=== PATIENT | female | born 1965 | race Caucasian/White ===

== ENCOUNTER → 2019-04-20 08:34 | Outpatient (BNVA) | payer MEDICARE, MEDICAID, SELFPAY | PROVIDERS: Family Provider Family Medicine; PCP Family Medicine; Visit Provider Specialist | DX: G35 Multiple sclerosis (principal) | CPT/HCPCS: 99214 ==

== ENCOUNTER → 2019-10-04 10:19 | Outpatient (BNVA) | payer MEDICARE, MEDICAID, SELFPAY | PROVIDERS: Family Provider Family Medicine; PCP Family Medicine; Visit Provider Specialist | DX: G35 Multiple sclerosis (principal) | CPT/HCPCS: 99213 ==

== ENCOUNTER 2020-05-23 10:39 | Outpatient (CLI) | payer MEDICARE, MEDICAID, SELFPAY ==
--- NOTE | 2020-05-23 10:42 | USCV_ITS ---
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 Resting YOCASTA of 0.37 on the right side and 0.7 on the left side CONCLUSIONS Normal resting YOCASTA and TBI on the left side, suggesting no significant obstructive arterial disease. Normal resting YOCASTA and abnormal resting TBI, suggestive of mild/moderate peripheral artery disease involving the distal vessels on the right side Dr Kristen Walker MD [facility] (Electronically Signed) Final Date: 24 May 2020 20:27 S
== END 2020-05-23 10:40 | disposition home or self-care (01) ==
LOC: US 10:41
PROVIDERS: PCP Family Medicine; Visit Provider Family Medicine
DX: M79.604 Pain in right leg (principal); M79.605 Pain in left leg
CPT/HCPCS: 93922

== ENCOUNTER → 2020-10-03 09:05 | Outpatient (BNVA) | payer MEDICARE, MEDICAID, SELFPAY | PROVIDERS: PCP Family Medicine; Visit Provider Specialist | DX: G35 Multiple sclerosis (principal); R20.0 Anesthesia of skin; R20.2 Paresthesia of skin; Z71.89 Other specified counseling | CPT/HCPCS: 99214 ==

== ENCOUNTER → 2021-07-22 14:57 | Outpatient (BNVA) | payer MEDICARE, MEDICAID, SELFPAY | PROVIDERS: PCP Family Medicine; Visit Provider Specialist | DX: G35 Multiple sclerosis (principal); F32.A Depression, unspecified | CPT/HCPCS: 99213 ==

== ENCOUNTER 2022-03-04 16:22 | Emergency (ER) | payer MEDICARE, MEDICAID, SELFPAY ==
[2022-03-04 16:31] VITALS: BP 143/88; PULSE 99; RESP 16; TEMP 36.8; O2SAT 97; BMI 27.4
[2022-03-04 16:39] VITALS: BP 153/73; PULSE 96; O2SAT 100
--- NOTE | 2022-03-04 16:57 | XRR_ITS ---
PROCEDURE INFORMATION: Exam: XR Chest Exam date and time: 03/04/2022 5:19 PM Age: 56 years old Clinical indication: Cough; Additional info: Dyspnea/cough TECHNIQUE: Imaging protocol: Radiologic exam of the chest. Views: 1 view. COMPARISON: No relevant prior studies available. FINDINGS: Lungs: Unremarkable. No consolidation. Pleural spaces: Unremarkable. No pleural effusion. No pneumothorax. Heart/Mediastinum: Unremarkable. No cardiomegaly. Bones/joints: Unremarkable. XR/XR chest 1V portable [id number] IMPRESSION: No acute findings.
--- NOTE | 2022-03-04 16:57 | ECG_ITS ---
[facility] Test Date: 2022-03-04 Pat Name: Elizabeth Garcia Department: Room: Gender: Female Envelope Addresser: : 1965 Requested By: Cam Bunn Order Number: [id number] Eloy MD: Kristen Walker M.D. Measurements Intervals [place] Rate: 94 P: 60 NM: 135 QRS: 12 QRSD: 77 T: 51 QT: 351 QTc: 440 Interpretive Statements SINUS RHYTHM Nonspecific T wave changes No previous ECG available for comparison Electronically Signed On 03-04-2022 20:30:44 IRRIGATION PUMP INSTALLER by Kristen Walker M.D. [id number]
--- NOTE | 2022-03-04 16:57 | CTR_ITS ---
PROCEDURE INFORMATION: Exam: CT Head Without Contrast Exam date and time: 03/04/2022 5:35 PM Age: 56 years old Clinical indication: Other: Confusion; Patient HX: Multiple sclerosis; Additional info: AMS TECHNIQUE: Imaging protocol: Computed tomography of the head without contrast. Radiation optimization: All CT scans at this facility use at least one of these dose optimization techniques: automated exposure control; mA and/or kV adjustment per patient size (includes targeted exams where dose is matched to clinical indication); or iterative reconstruction. COMPARISON: No relevant prior studies available. RADIATION DOSE METRICS: Total DLP (mGy-cm): 963.78 FINDINGS: Brain: Cerebral volume loss. No hemorrhage. Unremarkable white matter. No mass effect. Cerebral ventricles: Moderate ventriculomegaly. Paranasal sinuses: Visualized sinuses are unremarkable. No fluid levels. Mastoid air cells: Visualized mastoid air cells are well aerated. Bones/joints: Unremarkable. No acute fracture. There is a calcific density of posterior to the frontal sinuses in the midline sagittal measurements of 13 mm x 14 mm axial transverse measurement of 12 mm this finding appears chronic Soft tissues: Unremarkable. Other findings: This finding is larger than expected for age. CT/CT head wo con* [id number] IMPRESSION: 1. No acute intracranial abnormality. 2. Ventriculomegaly. 3. Chronic calcified density posterior to the frontal sinus.
--- NOTE | 2022-03-04 17:03 | W.ED.AMS ---
HPI - Altered Mental Status General: Chief Complaint: Altered Mental Status Stated Complaint: AMS Time Seen by Provider: 03/04/22 16:23 Course Vital Signs: Vital signs: Vital Signs Temperature 98.2 F 03/04/22 16:31 Pulse Rate 99 03/04/22 16:31 Respiratory Rate 16 03/04/22 16:31 Blood Pressure 143/88 03/04/22 16:31 Pulse Oximetry 97 03/04/22 16:31 Oxygen Delivery Me thod 03/04/22 16:31 Discharge Plan Discharge Condition: Stable Prescriptions: No Action duloxetine 30 mg capsule,delayed release(DR/EC) 30 mg PO DAILY duloxetine 60 mg capsule,delayed release(DR/EC) 60 mg PO DAILY Linzess 145 mcg capsule 145 mcg PO DAILY dimethyl fumarate 240 mg capsule,delayed release(DR/EC) 240 mg PO BID Referrals: Dariel Gaviria MD [Primary Care Provider] - Coding Level of Care Code ED Banking Supervisor for Jesus De Luna
[2022-03-04 17:09] VITALS: BP 151/70; PULSE 99; O2SAT 99
[2022-03-04 17:16] LABS: Basophils % 0.5 %; Eosinophils # 0.1 10^3/uL (0.0-0.8); Eosinophils % 0.6 %; Hemoglobin 12.9 g/dL (11.5-15.3); Lymphocytes # 1.2 10^3/uL (0.8-4.8); Lymphocytes % 15.5 %; Mean Corpuscular HGB Conc 32.3 g/dL (30.0-36.0); Mean Corpuscular Hemoglobin 29.8 pg (28.0-34.0); Mean Corpuscular Volume 92.4 fl (81-99); Mean Platelet Volume 11.2 fL (7.4-10.4); Monocytes # 0.6 10^3/uL (0.2-0.9); Monocytes % 7.3 %; Neutrophils # 6.08 10^3/uL (1.8-7.7); Nucleated Red Blood Cells % 0 %; Platelet Count 285 10^3/cmm (130-400); Red Blood Count 4.33 10^6/uL (4.1-5.3); Red Cell Distribution Width 12.9 % (12.1-15.1)
--- NOTE | 2022-03-04 17:27 | ED_ITS ---
HPI - General Adult General: Chief complaint: Altered Mental Status Stated complaint: AMS Time Seen by Provider: 03/04/22 16:23 Source: patient Mode of arrival: EMS History of Present Illness: 58-year-old female presents to the emergency room with a complaint of altered mental status. She is awake and alert answers all questions appropriately she says she thought Dr. Matson had moved from an office bili could the other which had confused her. I pointed out to her that as it turns out Dr. Matson did move from one location to another within the last 6 months. When she is pressed on the questions she has a hard time e xplaining what was going on or why she is here today. She is aware that she had a home health care nurse who sets up her medications it came out that thought she was confused. She denies any abdominal pain chest pain dysuria urgency or frequency no recent head trauma. EMS thought that this potentially that she was not taking her medicines correctly. She sees Dr. Matson for multiple sclerosis. Onset (ago): unknown Severity: mild Relieving factors: none Exacerbating factors: none Associated symptoms: Deny chest pain, confusion, cough, diaphoresis, decreased appetite, dyspnea, fevers/chills, headache(s), malaise, nausea, rash, palpitations, seizures, short of breath, syncope, vomiting or weakness Review of Systems Const: Denies: fever(s), chills, malaise or diaphoresis ENMT: Denies: throat pain, ear or mastoid pain, nasal discharge or nasal congestion Card: Denies: chest pain, palpitations or syncope Resp: Denies: dyspnea GI: Denies: abdominal pain, nausea or vomiting : Denies: flank pain, difficulty voiding, dysuria, urinary frequency or urinary urgency Skin/Breast: Denies: rash Neuro: Denies: headache(s) or confusion PFS ED PFSH: Medical History (Updated 03/04/22 @ 18:31 by Cam Swanson DO) Multiple sclerosis Social History (Updated 03/04/22 @ 17:31 by Cam Swanson DO) Smoking and tobacco status: never smoked Alcohol intake: never Physical Exam Const: GENERAL APPEARANCE: cooperative and comfortable ORIENTATION/CONSCIOUSNESS: Yes awake HENMT: COMMON NORMALS: normocephalic and atraumatic HEAD & SCALP: normocephalic and atraumatic Resp: COMMON NORMALS: normal respiratory effort, No retractions, No use of accessory muscles and clear to auscultation bilaterally AUSCULTATION: clear to auscultation bilaterally Cardio: COMMON NORMALS: regular rate, regular rhythm and No murmurs present (Cardio) RATE: regular rate RHYTHM: regular rhythm GI: COMMON NORMALS: Soft to palpation and No hepatosplenomegaly present AUSCULTATION: Yes normoactive bowel sounds PALPATION: Yes Soft to palpation, No Tenderness to palpation present (GI), No Guarding due to palpation present (GI) and Yes No hepatosplenomegaly present Extremity: COMMON NORMALS: normal to inspection, capillary refill normal, no clubbing, cyanosis or edema, no calf tenderness and no pedal edema Skin: COMMON NORMALS: no rashes or lesions noted GENERAL SKIN EXAM: no rashes or lesions noted Course Vital Signs: Vital signs: Vital Signs Temperature 98.2 F 03/04/22 16:31 Pulse Rate 98 03/04/22 18:21 Respiratory Rate 16 03/04/22 16:31 Blood Pressure 154/78 03/04/22 18:21 Pulse Oximetry 100 03/04/22 18:21 Oxygen Delivery Me thod 03/04/22 18:21 MDM - General Adult Medical Decision Making She does have multiple sclerosis unfortunately there were 2 charts and initially we did not have access to her old records. She has some difficulty with cognitive ability at her end-stage MS which is not new for her. Reviewed the other chart and the findings and. At this point I think she is essentially at her baseline no acute findings made we will discharge her home. Lab Data 03/04/22 17:02 03/04/22 17:02 Radiology Impressions Chest X-Ray 03/04/22 16:57 IMPRESSION: No acute findings. Head CT 03/04/22 16:57 IMPRESSION: 1. No acute intracranial abnormality. 2. Ventriculomegaly. 3. Chronic calcified density posterior to the frontal sinus. Laboratory Results WBC 8.0 10^3/uL (4.0-10.0) 03/04/22 17:02 RBC 4.33 10^6/uL (4.1-5.3) 03/04/22 17:02 Hgb 12.9 g/dL (11.5-15.3) 03/04/22 17:02 Hct 40.0 % (37.0-47.0) 03/04/22 17:02 MCV 92.4 fl (81-99) 03/04/22 17:02 MCH 29.8 pg (28.0-34.0) 03/04/22 17:02 MCHC 32.3 g/dL (30.0-36.0) 03/04/22 17:02 RDW 12.9 % (12.1-15.1) 03/04/22 17:02 Plt Count 285 10^3/cmm (130-400) 03/04/22 17:02 MPV 11.2 fL (7.4-10.4) H 03/04/22 17:02 Neut % (Auto) 76.0 % 03/04/22 17:02 Lymph % (Auto) 15.5 % 03/04/22 17:02 [place] % (Auto) 7.3 % 03/04/22 17:02 Eos % (Auto) 0.6 % 03/04/22 17:02 Baso % (Auto) 0.5 % 03/04/22 17:02 Neut # (Auto) 6.08 10^3/uL (1.8-7.7) 03/04/22 17:02 Lymph # (Auto) 1.2 10^3/uL (0.8-4.8) 03/04/22 17:02 [place] # (Auto) 0.6 10^3/uL (0.2-0.9) 03/04/22 17:02 Eos # (Auto) 0.1 10^3/uL (0.0-0.8) 03/04/22 17:02 Baso # (Auto) 0.0 10^3/uL (0.0-0.1) 03/04/22 17:02 Nucleated RBC % (auto) 0 % 03/04/22 17:02 Nucleated RBCs # 0.0 /100WBC 03/04/22 17:02 Sodium 138 mmol/L (136-145) 03/04/22 17:02 Potassium 3.4 mmol/L (3.5-5.1) L 03/04/22 17:02 Chloride 102 mmol/L (98-107) 03/04/22 17:02 Carbon Dioxide 23 mmol/L (22-29) 03/04/22 17:02 Anion Gap 16.4 (5-19) 03/04/22 17:02 BUN 26 mg/dL (6-20) H 03/04/22 17:02 Creatinine 0.9 mg/dL (0.5-0.9) 03/04/22 17:02 GFR Calculation 64.8 mL/min (90-130) L 03/04/22 17:02 Glucose 98 mg/dL (65-115) 03/04/22 17:02 Calculated Osmolality 291 mOsm/kg (285-295) 03/04/22 17:02 Calcium 10.1 mg/dL (8.5-10.5) 03/04/22 17:02 Total Bilirubin 0.4 mg/dL (0.15-1.2) 03/04/22 17:02 AST 18 U/L (0-32) 03/04/22 17:02 ALT 13 U/L (0-33) 03/04/22 17:02 Alkaline Phosphatase 81 U/L (35-105) 03/04/22 17:02 Total Protein 7.3 g/dL (6.6-8.7) 03/04/22 17:02 Albumin 4.2 g/dL (3.5-5.2) 03/04/22 17:02 Globulin 3.1 g/dL (1.3-4.6) 03/04/22 17:02 Discharge Plan Discharge Patient Disposition: Home Clinical Impression: Multiple sclerosis Condition: Stable Prescriptions: No Action duloxetine 30 mg capsule,delayed release(DR/EC) 30 mg PO DAILY duloxetine 60 mg capsule,delayed release(DR/EC) 60 mg PO DAILY Linzess 145 mcg capsule 145 mcg PO DAILY dimethyl fumarate 240 mg capsule,delayed release(DR/EC) 240 mg PO BID Discharge Orders: Discharge ED (Routine); Ordered 03/04/22 Ordered By: Cam Swanson Referrals: Dariel Gaviria MD [Primary Care Provider] - Discharge Diet: Usual diet Discharge Activity: Resume usual activity Patient Instructions: Opioid Safety, Pain Management Activity Restrictions/Additional Instructions: You were seen today for reported altered mental status. Emergency room your exam laboratory findings were normal accounting for your underlying known multiple sclerosis. Follow-up with Dr. Matson at your next scheduled visit. Coding Level of Care Code ED Appliance Painter And Refinisher for Chg Fwd Exam Detailed
[2022-03-04 17:30] VITALS: BP 166/75; PULSE 89; O2SAT 98
[2022-03-04 17:40] LABS: Alanine Aminotransferase 13 U/L (0-33); Albumin Level 4.2 g/dL (3.5-5.2); Alkaline Phosphatase 81 U/L (35-105); Aspartate Amino Transferase 18 U/L (0-32); Blood Urea Nitrogen 26 mg/dL (6-20); Calcium 10.1 mg/dL (8.5-10.5); Carbon Dioxide 23 mmol/L (22-29); Chloride 102 mmol/L (98-107); Globulin 3.1 g/dL (1.3-4.6); Glomerular Filtration Rate 64.8 mL/min (90-130); Glucose 98 mg/dL (65-115); Osmolality Calculated 291 mOsm/kg (285-295); Sodium 138 mmol/L (136-145); Total Bilirubin 0.4 mg/dL (0.15-1.2); Total Protein 7.3 g/dL (6.6-8.7)
[2022-03-04 17:42] LABS: Anion Gap 16.4 (5-19); Potassium 3.4 mmol/L (3.5-5.1)
[2022-03-04 18:21] VITALS: BP 154/78; PULSE 98; O2SAT 100
== END 2022-03-04 19:00 | disposition home or self-care (01) ==
PROVIDERS: Emergency Provider Family Medicine; PCP Family Medicine
DX: G35 Multiple sclerosis (principal)
CPT/HCPCS: 70450; 71045; 80053; 85025; 93005; 99285

== ENCOUNTER → 2022-07-22 14:44 | Outpatient (BNVA) | payer MEDICARE, MEDICAID, SELFPAY | PROVIDERS: PCP Family Medicine; Visit Provider Specialist | DX: G35 Multiple sclerosis (principal); Z79.899 Other long term (current) drug therapy | CPT/HCPCS: 99213 ==

== ENCOUNTER 2022-08-12 12:31 | Emergency (ER) | payer MEDICARE, MEDICAID, SELFPAY ==
[2022-08-12 12:37] VITALS: BP 154/77; PULSE 70; RESP 18; TEMP 36.7; O2SAT 97; BMI 23.3
--- NOTE | 2022-08-12 13:02 | CT_ITS ---
WS: [id number] CT HEAD NONCONTRAST HISTORY: AMS TECHNIQUE: Contiguous axial imaging performed through the brain in 2.5 mm imaging. Bone and soft tiss ue windows. Sagittal and coronal reformats reviewed. All CT scans at [facility] use at least one of these dose optimization techniques: automated exposure control; mA and/or kV adjustment per pa tient size (includes targeted exams where dose is matched to clinical indication); or iterative recon struction. DLP: 977.08 mGy.cm COMPARISON: 03/04/2022 No acute intracranial hemorrhage, midline shift or mass effect. Moderate atrophy is noted bilaterally. Advanced for the patient's age. Predominantly involving the fr ontal, temporal and parietal lobes. Low-attenuation throughout the white matter from small vessel isc hemic disease. Small lacunar infarcts in the basal ganglia greatest on the RIGHT. Moderate cerebellar atrophy. Ventricles: Normal size with no hydrocephalus. Paranasal sinuses: Mucoperiosteal disease sphenoid sinuses. Calcified mass in the anterior inferior f rontal brain. This is been present on prior studies and probably represents a meningioma. No soft tis kay component. Mastoid air cells: Well pneumatized. Calvarium and scalp: Skull is intact with no soft tissue edema or swelling. CT/CT head wo con* [id number] IMPRESSION: 1. Moderate atrophy is noted bilaterally involving the frontal, temporal and p arietal lobes. Out of proportion to the age and probably related to multiple sc lerosis. There is also moderate small vessel ischemic disease. These changes we re present on the prior study from 03/04/2022. No acute interval change. 2. No hemorrhage.
--- NOTE | 2022-08-12 13:02 | XRR_ITS ---
PROCEDURE INFORMATION: Exam: XR Chest Exam date and time: 08/12/2022 1:28 PM Age: 57 years old Clinical indication: Cough and dyspnea; Altered mental status. TECHNIQUE: Imaging protocol: Radiologic exam of the chest. Views: 1 view. COMPARISON: CR XR chest 1V portable [id number] 03/04/2022 5:19 PM FINDINGS: Lungs: No pulmonary vascular congestion, pulmonary edema or pneumonia. Pleural spaces: No pleural effusion or pneumothorax. Heart/Mediastinum: The cardiac silhouette is not enlarged. The mediastinal contours are normal. Bones/joints: No acute osseous abnormality. Gastrointestinal tract: Gaseous distention of the visualized colon in the upper abdomen. XR/XR chest 1V portable [id number] IMPRESSION: No acute finding.
[2022-08-12 13:10] LABS: Basophils # 0.1 10^3/uL (0.0-0.1); Basophils % 0.9 %; Eosinophils # 0.2 10^3/uL (0.0-0.8); Eosinophils % 3.3 %; Hematocrit 46.2 % (37.0-47.0); Hemoglobin 14.6 g/dL (11.5-15.3); Lymphocytes # 1.5 10^3/uL (0.8-4.8); Lymphocytes % 25.2 %; Mean Corpuscular HGB Conc 31.6 g/dL (30.0-36.0); Mean Corpuscular Hemoglobin 28.9 pg (28.0-34.0); Mean Corpuscular Volume 91.5 fl (81-99); Monocytes # 0.4 10^3/uL (0.2-0.9); Monocytes % 7.5 %; Neutrophils # 3.62 10^3/uL (1.8-7.7); Neutrophils % 62.9 %; Nucleated Red Blood Cells % 0 %; Platelet Count 374 10^3/cmm (130-400); Red Blood Count 5.05 10^6/uL (4.1-5.3); Red Cell Distribution Width 13.8 % (12.1-15.1); White Blood Count 5.8 10^3/uL (4.0-10.0)
--- NOTE | 2022-08-12 13:23 | ED_ITS ---
HPI - General Adult General: Chief complaint: Altered Mental Status Stated complaint: AMS Time Seen by Provider: 08/12/22 12:59 Source: patient Mode of arrival: EMS History of Present Illness: 57-year-old female presents emergency room with altered mental status. Does not really able to answer any questions. She laughs when asked her most questions she is not in any acute distress nonseptic in appearance. She has a history of MS still is able to tell me that Dr. Gaviria is her usual doctor and she has MS but cannot really tell us anything about why she is here. Onset (ago): day(s) (2) Relieving factors: none Exacerbating factors: none Associated symptoms: Deny chest pain, confusion, cough, diaphoresis, decreased appetite, dyspnea, fevers/chills, headache(s), malaise, nausea, rash, palpitations, seizures, short of breath, syncope, vomiting or weakness Treatments prior to arrival: none Review of Systems Const: Denies: malaise or diaphoresis ENMT: Denies: throat pain, ear or mastoid pain, nasal discharge or nasal congestion Card: Denies: chest pain, palpitations or syncope Resp: Denies: dyspnea GI: Denies: abdominal pain, nausea or vomiting : Denies: flank pain, difficulty voiding, dysuria, urinary frequency or urinary urgency Skin/Breast: Denies: rash Neuro: Denies: headache(s) or confusion PFSH ED PFSH: Medical History Multiple sclerosis Social History Smoking and tobacco status: never smoked Alcohol intake: never Physical Exam Const: GENERAL APPEARANCE: cooperative and comfortable ORIENTATION/CONSCIOUSNESS: Yes awake, Yes oriented to person, Yes oriented to place and Yes oriented to time HENMT: COMMON NORMALS: normocephalic, atraumatic and hearing grossly normal bilaterally HEAD & SCALP: normocephalic and atraumatic Resp: COMMON NORMALS: normal respiratory effort, No retractions, No use of accessory muscles and clear to auscultation bilaterally AUSCULTATION: clear to auscultation bilaterally Cardio: COMMON NORMALS: regular rate, regular rhythm and No murmurs present (Cardio) RATE: regular rate RHYTHM: regular rhythm GI: COMMON NORMALS: Soft to palpation and No hepatosplenomegaly present AUSCULTATION: Yes normoactive bowel sounds PALPATION: Yes Soft to palpation, No Tenderness to palpation present (GI), No Guarding due to palpation present (GI) and Yes No hepatosplenomegaly present Extremity: COMMON NORMALS: normal to inspection, capillary refill normal, no clubbing, cyanosis or edema, no calf tenderness and no pedal edema Neuro: SENSORIUM/ORIENTATION: Yes oriented to person, Yes oriented to place and Yes oriented to time Skin: COMMON NORMALS: no rashes or lesions noted GENERAL SKIN EXAM: no rashes or lesions noted Course Vital Signs: Vital signs: Vital Signs Temperature 98.0 F 08/12/22 16:20 Pulse Rate 83 08/12/22 17:56 Respiratory Rate 16 08/12/22 17:56 Blood Pressure 142/76 08/12/22 17:56 Pulse Oximetry 97 08/12/22 17:56 Oxygen Delivery Me thod Room Air 08/12/22 12:37 MDM - General Adult Medical Decision Making Patient has a rather interesting affect when she arrives here we cannot find anyone to discuss to get her baseline. I did call Dr. Gaviria he had seen her about 2 years he did relate that she does have a habit of giggling or laughing a bit when interacting but usually can give a good history. She is able to give a relatively good history but was very repetitive and avoided detailed. She is awake and alert she wants to go home. White count is normal electrolytes were not significantly abnormal either. She did have very slight elevation of her alk phos and a mild urinary tract infection we tried to contact her significant other we also contacted home health. The home health aide who stopped by felt she was not quite herself which is what precipitated the ER visit. I do not have anything to admit her for at this time we will discharge patient home with Cipro for UTI and encouraged her to follow-up with primary care doctor/ reestablish with Dr. Gaviria within the next week return if she has further problems. Medical Records I reviewed the patient's medical records. Lab Data I reviewed the patient's lab results. 08/12/22 12:40 08/12/22 12:40 Radiology Impressions Chest X-Ray 08/12/22 13:02 IMPRESSION: No acute finding. Head CT 08/12/22 13:02 IMPRESSION: 1. Moderate atrophy is noted bilaterally involving the frontal, temporal and parietal lobes. Out of proportion to the age and probably related to multiple sclerosis. There is also moderate small vessel ischemic disease. These changes were present on the prior study from 03/04/2022. No acute interval change. 2. No hemorrhage. Laboratory Results WBC 5.8 10^3/uL (4.0-10.0) 08/12/22 12:40 RBC 5.05 10^6/uL (4.1-5.3) 08/12/22 12:40 Hgb 14.6 g/dL (11.5-15.3) 08/12/22 12:40 Hct 46.2 % (37.0-47.0) 08/12/22 12:40 MCV 91.5 fl (81-99) 08/12/22 12:40 MCH 28.9 pg (28.0-34.0) 08/12/22 12:40 MCHC 31.6 g/dL (30.0-36.0) 08/12/22 12:40 RDW 13.8 % (12.1-15.1) 08/12/22 12:40 Plt Count 374 10^3/cmm (130-400) 08/12/22 12:40 MPV 11.0 fL (7.4-10.4) H 08/12/22 12:40 Neut % (Auto) 62.9 % 08/12/22 12:40 Lymph % (Auto) 25.2 % 08/12/22 12:40 [place] % (Auto) 7.5 % 08/12/22 12:40 Eos % (Auto) 3.3 % 08/12/22 12:40 Baso % (Auto) 0.9 % 08/12/22 12:40 Neut # (Auto) 3.62 10^3/uL (1.8-7.7) 08/12/22 12:40 Lymph # (Auto) 1.5 10^3/uL (0.8-4.8) 08/12/22 12:40 [place] # (Auto) 0.4 10^3/uL (0.2-0.9) 08/12/22 12:40 Eos # (Auto) 0.2 10^3/uL (0.0-0.8) 08/12/22 12:40 Baso # (Auto) 0.1 10^3/uL (0.0-0.1) 08/12/22 12:40 Nucleated RBC % (auto) 0 % 08/12/22 12:40 Nucleated RBCs # 0.0 /100WBC 08/12/22 12:40 Sodium 144 mmol/L (136-145) 08/12/22 12:40 Potassium 4.8 mmol/L (3.5-5.1) 08/12/22 12:40 Chloride 106 mmol/L (98-107) 08/12/22 12:40 Carbon Dioxide 28 mmol/L (22-29) 08/12/22 12:40 Anion Gap 14.8 (5-19) 08/12/22 12:40 BUN 18 mg/dL (6-20) 08/12/22 12:40 Creatinine 0.6 mg/dL (0.5-0.9) 08/12/22 12:40 GFR Calculation 103.0 mL/min (90-130) 08/12/22 12:40 Glucose 96 mg/dL (65-115) 08/12/22 12:40 Calculated Osmolality 300 mOsm/kg (285-295) H 08/12/22 12:40 Calcium 9.5 mg/dL (8.5-10.5) 08/12/22 12:40 Total Bilirubin 0.5 mg/dL (0.15-1.2) 08/12/22 12:40 AST 13 U/L (0-32) 08/12/22 12:40 ALT 8 U/L (0-33) 08/12/22 12:40 Alkaline Phosphatase 118 U/L (35-105) H 08/12/22 12:40 Troponin T Baseline 6 ng/L (0-10) 08/12/22 12:40 Troponin T 120 Minute 6.00 ng/L (0-10) 08/12/22 14:43 Delta Troponin T 0 ABS# (0-10) 08/12/22 14:43 Total Protein 7.1 g/dL (6.6-8.7) 08/12/22 12:40 Albumin 4.6 g/dL (3.5-5.2) 08/12/22 12:40 Globulin 2.5 g/dL (1.3-4.6) 08/12/22 12:40 Urine Color Yellow (Yellow) 08/12/22 14:05 Urine Appearance Cloudy (CLEAR) A 08/12/22 14:05 Urine pH 7 (5-7) 08/12/22 14:05 Ur Specific [place] 1.015 (1.005-1.030) 08/12/22 14:05 Urine Protein Neg (Negative) 08/12/22 14:05 Urine Glucose (UA) Norm (Normal) 08/12/22 14:05 Urine Ketones 1+ (Negative) H 08/12/22 14:05 Urine Blood 3+ (Negative) H 08/12/22 14:05 Urine Nitrate Negative (Negative) 08/12/22 14:05 Urine Bilirubin Neg (Negative) 08/12/22 14:05 Urine Urobilinogen 1 mg/dL (Negative) H 08/12/22 14:05 Ur Leukocyte Esterase 2+ (Negative) H 08/12/22 14:05 Urine RBC 5-10 /hpf (0-2) H 08/12/22 14:05 Urine WBC 55-80 /hpf (0-5) H 08/12/22 14:05 Ur Squamous Epith Cells 25-40 /hpf (0-5) H 08/12/22 14:05 Amorphous Sediment Not Reportable 08/12/22 14:05 Urine Bacteria 2+ /hpf (NONE) H 08/12/22 14:05 Urine Mucus Trace /hpf 08/12/22 14:05 Discharge Plan Discharge Patient Disposition: Home Clinical Impression: Cystitis, Multiple sclerosis Condition: Stable Prescriptions: New Cipro 500 mg tablet 500 mg PO BID Qty: 14 0RF No Action duloxetine 30 mg capsule,delayed release(DR/EC) 30 mg PO DAILY Linzess 145 mcg capsule 145 mcg PO DAILY dimethyl fumarate 240 mg capsule,delayed release(DR/EC) 240 mg PO BID baclofen 10 mg tablet 10 mg PO QID PRN (Reason: Muscle Spasm) duloxetine 60 mg capsule,delayed release(DR/EC) 60 mg PO QAM Discharge Orders: Discharge ED (Routine); Ordered 08/12/22 Ordered By: Cam Swanson Referrals: Dariel Gaviria MD [Primary Care Provider] - Patient Instructions: Opioid Safety, Pain Management Coding Level of Care Code ED Filter Plant Supervisor for Chg Fwd
--- NOTE | 2022-08-12 13:25 | ECG_ITS ---
[facility] Test Date: 2022-08-12 Pat Name: Elizabeth Garcia Department: Room: Gender: Female Production Cook: : 1965 Requested By: Cam Bunn Order Number: [id number] Reading MD: Crispin Mccormick M.D. Measurements Intervals [place] Rate: 67 P: 68 [place]: 123 QRS: 17 QRSD: 73 T: 44 QT: 398 QTc: 421 Interpretive Statements SINUS RHYTHM Compared to ECG 03/04/2022 18:40:41 T-wave abnormality no longer present Electronically Signed On 08-12-2022 16:35:52 CDT by Crispin Mccormick M.D. [id number]
[2022-08-12 13:27] LABS: Troponin(5th) Baseline 6 ng/L (0-10)
[2022-08-12 13:28] LABS: Alanine Aminotransferase 8 U/L (0-33); Albumin Level 4.6 g/dL (3.5-5.2); Alkaline Phosphatase 118 U/L (35-105); Anion Gap 14.8 (5-19); Aspartate Amino Transferase 13 U/L (0-32); Blood Urea Nitrogen 18 mg/dL (6-20); Calcium 9.5 mg/dL (8.5-10.5); Carbon Dioxide 28 mmol/L (22-29); Chloride 106 mmol/L (98-107); Globulin 2.5 g/dL (1.3-4.6); Glucose 96 mg/dL (65-115); Osmolality Calculated 300 mOsm/kg (285-295); Potassium 4.8 mmol/L (3.5-5.1); Sodium 144 mmol/L (136-145); Total Bilirubin 0.5 mg/dL (0.15-1.2); Total Protein 7.1 g/dL (6.6-8.7)
[2022-08-12 14:42] VITALS: BP 139/85; PULSE 73; O2SAT 100
[2022-08-12 15:00] VITALS: BP 131/74; PULSE 75; O2SAT 99
--- NOTE | 2022-08-12 15:02 | ECG_ITS ---
[facility] Test Date: 2022-08-12 Pat Name: Elizabeth Garcia Department: Room: Gender: Female Turbine Mechanic: : 1965 Requested By: Cam Bunn Order Number: [id number] Eloy MD: Crispin Mccormick M.D. Measurements Intervals [place] Rate: 69 P: 67 [place]: 122 QRS: 14 QRSD: 76 T: 50 QT: 405 QTc: 435 Interpretive Statements SINUS RHYTHM Compared to ECG 08/12/2022 13:25:55 No significant changes Electronically Signed On 08-12-2022 16:45:14 CDT by Crispin Mccormick M.D. [id number]
[2022-08-12 15:06] LABS: Urine Appearance Cloudy (CLEAR); Urine Color Yellow (Yellow); pH Urine 7 (5-7)
[2022-08-12 15:07] LABS: Add Urine Microscopic? YES; Bilirubin Urine Neg (Negative); Blood Urine 3+ (Negative); Glucose Urine UA Norm (Normal); Ketones Urine 1+ (Negative); Leukocyte Esterase Urine 2+ (Negative); Nitrate Urine Negative (Negative); Protein Urine Neg (Negative); Specific Gravity, Urine 1.015 (1.005-1.030); Urobilinogen Urine 1 mg/dL (Negative); WBC Urine 55-80 /hpf (0-5)
[2022-08-12 15:08] LABS: Add Urine Culture? No; Bacteria Urine 2+ /hpf; Mucus Urine TRACE /hpf; Squamous Epithelial Cell Urine 25-40 /hpf (0-5)
[2022-08-12 15:25] LABS: Troponin 5 2HR Delta 0 ABS# (0-10)
[2022-08-12 15:30] VITALS: BP 143/71; PULSE 70; O2SAT 97
--- NOTE | 2022-08-12 15:41 | PC.PHAR ---
pt unable to verify medications-called pts contact shar [phone] not accepting calls-medications entered are what [facility] pharmacy has mailed to the pt-notes are made with last filled dates in pharmacy comments
[2022-08-12] MEDS: cefTRIAXone 1,000 MG in sodium chloride 0.9% (plus) 50 ML 100 MG IV (16:19)
[2022-08-12 16:20] VITALS: TEMP 36.7
[2022-08-12 17:56] VITALS: BP 142/76; PULSE 83; RESP 16; O2SAT 97
--- NOTE | 2022-08-12 19:05 | PC.NURSE ---
REPORT GIVEN TO [facility].
== END 2022-08-12 20:35 | disposition home or self-care (01) ==
PROVIDERS: Emergency Provider Family Medicine; PCP Family Medicine
DX: N30.90 Cystitis, unspecified without hematuria (principal); G35 Multiple sclerosis
CPT/HCPCS: 36415; 70450; 71045; 80053; 81001; 84484; 85025; 93005; 96365; 99285; J0696

== ENCOUNTER 2023-02-09 02:32 | Emergency (ER) | payer MEDICARE, MEDICAID, SELFPAY ==
[2023-02-09 02:33] VITALS: BP 183/98; PULSE 89; RESP 16; TEMP 36.4; O2SAT 93
--- NOTE | 2023-02-09 04:29 | ED_ITS ---
HPI - Overdose General: Chief Complaint: Overdose Stated Complaint: OD Time Seen by Provider: 02/09/23 02:45 History of Present Illness: 57-year-old female with a history of MS. She states she has been under a lot of stress, due to a significant other in the hospital mainly. She took a total of 200 mg of Benadryl over the last 6 to 7 hours trying to get to sleep because she could not sleep. This is the only thing she had to try to get her to sleep. She denies suicidal or homicidal ideation. She is not having any symptoms of Benadryl overdose. No other coingestions. Review of Systems Const: Denies: fever(s), chills or body aches Eyes: Denies: change in vision Card: Denies: chest pain or palpitations Resp: Denies: dyspnea, productive cough, non-productive cough or wheezing GI: Denies: abdominal pain, nausea, vomiting, diarrhea or hematochezia : Denies: difficulty voiding Skin/Breast: Denies: rash Neuro: Denies: headache(s), weakness in extremities, dizziness or confusion PFSH ED PFSH: Family History Brother Cancer Father CHF (congestive heart failure) Social History Smoking and tobacco/nicotine status: never used tobacco/nicotine Physical Exam Const: COMMON NORMALS: no acute distress GENERAL APPEARANCE: cooperative; not ill appearing and not frail appearing HENMT: COMMON NORMALS: normocephalic, atraumatic and Normal external nose present HEAD & SCALP: normocephalic and atraumatic FACE & SINUS: normal facial exam and face symmetric NOSE: Normal external nose present Eye: COMMON NORMALS: Equal, round and reactive pupils present and EOMs intact bilaterally PUPIL: Yes Equal, round and reactive pupils present Neck/C-Spine: GENERAL: Yes trachea midline Chest: CHEST: Yes Symmetrical chest wall rise Resp: COMMON NORMALS: normal respiratory effort, No retractions, No use of accessory muscles and clear to auscultation bilaterally AUSCULTATION: clear to auscultation bilaterally Cardio: COMMON NORMALS: regular rate and regular rhythm RATE: regular rate RHYTHM: regular rhythm GI: COMMON NORMALS: Normal to inspection, nondistended, normoactive bowel sounds present Extremity: COMMON NORMALS: no pedal edema Neuro: LAINA COMA SCALE: document GCS findings Stanton coma scale eye opening: Spontaneous Stanton coma scale verbal response: Orientated Laina coma scale motor response: Obey commands Laina coma scale total score: 15 SENSORY EXAM: Yes extremities (intact) Psych: COMMON NORMALS: speech normal SPEECH: Yes normal speech Skin: COMMON NORMALS: no rashes or lesions noted GENERAL SKIN EXAM: no rashes or lesions noted Course Vital Signs: Vital signs: Vital Signs Temperature 97.6 F 02/09/23 02:33 Pulse Rate 89 02/09/23 02:33 Respiratory Rate 16 02/09/23 02:33 Blood Pressure 183/98 02/09/23 02:33 Pulse Oximetry 93 02/09/23 02:33 Oxygen Delivery Me thod Room Air 02/09/23 02:33 MDM - Overdose Medical Decision Making Vitals are stable here. She is not suicidal or homicidal. She took a nontoxic dose of Benadryl over several hours. She has passed the peak effect, and asymptomatic. No hallucinations, no rigidity, no vomiting, no tachycardia. She will be allowed discharge. Medically, she is stable. No radiology studies performed this visit Discharge Plan Discharge Patient Disposition: Home Clinical Impression: Accidental overdose Condition: Stable Prescriptions: No Action baclofen 10 mg tablet See Rx Instructions .ROUTE .COMPLEX Qty: 120 1RF Dose Instruction: TAKE 1 TABLET FOUR TIMES DAILY NEEDED FOR MUSCLE SPASTICITY Rx Instructions: TAKE 1 TABLET FOUR TIMES DAILY NEEDED FOR MUSCLE SPASTICITY dimethyl fumarate 240 mg capsule,delayed release(DR/EC) 240 mg PO BID 90 Days Qty: 180 3RF duloxetine 60 mg capsule,delayed release(DR/EC) 60 mg PO .COMPLEX Qty: 90 3RF Rx Instructions: 60 mg orally; duloxetine 30 mg capsule,delayed release(DR/EC) 30 mg PO DAILY Qty: 90 3RF Rx Instructions: take along with 60mg capsule Linzess 145 mcg capsule 145 mcg PO DAILY Qty: 90 3RF Discharge Orders: Discharge ED (Routine); Ordered 02/09/23 Ordered By: Dwight Damon Referrals: Dariel Gaviria MD [Primary Care Provider] - 1-3 days Patient Instructions: Adult Overdose (ED), Opioid Safety, Pain Management Activity Restrictions/Additional Instructions: Avoid the use of Benadryl for at least 24 hours. Only take at appropriate dosages. Return for any problems including mental status change, hallucinations, seizures, tight muscles, chest discomfort, other concerns. See your doctor this week. Coding Level of Care Code ED Trimming Machine Set Up Operator for Jesus De Luna
[2023-02-09 05:09] VITALS: BP 183/98; PULSE 89; RESP 16; TEMP 36.4; O2SAT 93
== END 2023-02-09 05:10 | disposition home or self-care (01) ==
PROVIDERS: Emergency Provider Emergency Medicine; PCP Family Medicine
DX: T45.0X1A Poisoning by antiallergic and antiemetic drugs, accidental (unintentional), initial encounter (principal)
CPT/HCPCS: 99281

== ENCOUNTER 2023-03-18 06:30 | Inpatient (IN) | payer MEDICARE, MEDICAID, SELFPAY ==
[2023-03-18 06:31] VITALS: BP 153/83; PULSE 99; RESP 18; TEMP 37; O2SAT 100; BMI 25.0
--- NOTE | 2023-03-18 06:51 | W.ED.PSYCHS ---
HPI - Psych General: Chief Complaint: Psychiatric Symptoms Stated Complaint: MHE Time Seen by Provider: 03/18/23 06:32 Source: patient Mode of arrival: EMS History of Present Illness: 57-year-old female presents to the emergency with anxiety. Is difficult to get her to explain exactly why she is here. When asked her how she got here she was able to tell me the ambulance brought her she admitted that she had called the ambulance herself. Initially she states that she was very anxious she needs some help so she called the nonemergent police dispatch line. She tells me she wanted help moving her laundry. The police referred her to EMS and EMS was dispatched to her home. I did not have the opportunity to talk to EMS after they had arrived with the patient. She denies any suicidal or homicidal ideation. No previous admissions for suicidal ideation. Patient is on duloxetine changes. History of same: No Relieving factors: none Exacerbating factors: none Associated psychiatric symptoms: depression Associated symptoms: Reports no associated symptoms; Deny auditory hallucinations, visual hallucinations, depression, homicidal ideation or suicidal ideation Treatments prior to arrival: none Review of Systems Const: Denies: fever(s) or chills Card: Denies: chest pain Resp: Denies: dyspnea GI: Denies: abdominal pain : Denies: dysuria, urinary frequency or urinary urgency Musc: Denies: neck pain or back pain Skin/Breast: Denies: rash Psych: Denies: depression, visual hallucinations, auditory hallucinations, suicidal ideation or homicidal ideation [facility] ED PFSH: Medical History (Updated 03/18/23 @ 15:22 by Cam Swanson DO) Multiple sclerosis Family History Brother Cancer Father CHF (congestive heart failure) Social History Smoking and tobacco/nicotine status: never used tobacco/nicotine Alcohol intake: never Physical Exam Const: COMMON NORMALS: no acute distress GENERAL APPEARANCE: cooperative and comfortable ORIENTATION/CONSCIOUSNESS: Yes awake, Yes oriented to person, Yes oriented to place and Yes oriented to time HENMT: COMMON NORMALS: normocephalic, atraumatic and hearing grossly normal bilaterally HEAD & SCALP: normocephalic and atraumatic Resp: COMMON NORMALS: normal respiratory effort, No retractions, No use of accessory muscles and clear to auscultation bilaterally AUSCULTATION: clear to auscultation bilaterally Cardio: COMMON NORMALS: regular rate, regular rhythm and No murmurs present (Cardio) RATE: regular rate RHYTHM: regular rhythm GI: COMMON NORMALS: Soft to palpation and No hepatosplenomegaly present AUSCULTATION: Yes normoactive bowel sounds PALPATION: Yes Soft to palpation, No Tenderness to palpation present (GI), No Guarding due to palpation present (GI) and Yes No hepatosplenomegaly present Extremity: COMMON NORMALS: normal to inspection, capillary refill normal, no clubbing, cyanosis or edema, no calf tenderness and no pedal edema Neuro: SENSORIUM/ORIENTATION: Yes oriented to person, Yes oriented to place and Yes oriented to time Skin: COMMON NORMALS: no rashes or lesions noted GENERAL SKIN EXAM: no rashes or lesions noted Course Vital Signs: Vital signs: Vital Signs Temperature 98.6 F 03/18/23 06:31 Pulse Rate 115 H 03/18/23 13:37 Respiratory Rate 18 03/18/23 06:31 Blood Pressure 124/77 03/18/23 13:37 Pulse Oximetry 99 03/18/23 13:37 Oxygen Delivery Me thod Room Air 03/18/23 13:37 MDM - Psych Medical Decision Making Patient has had several visits to crisis intervention is also had an overdose last month. Discussed Dr. Ward. Recommend admit to MPU discussed with patient she is agreeable to this orders written Medical Records I reviewed the patient's medical records. Lab Data I reviewed the patient's lab results. 03/18/23 06:53 03/18/23 06:53 Laboratory Results WBC 5.63 10^3/uL (3.29-11.43) 03/18/23 06:53 RBC 4.85 10^6/uL (3.85-5.65) 03/18/23 06:53 Hgb 14.60 g/dL (11.27-16.99) 03/18/23 06:53 Hct 44.1 % (36-47) 03/18/23 06:53 MCV 90.9 fl (85-98) 03/18/23 06:53 MCH 30.1 pg (27-33) 03/18/23 06:53 MCHC 33.1 g/dL (30-55) 03/18/23 06:53 RDW 12.6 % (12.1-15.1) 03/18/23 06:53 Plt Count 348 10^3/cmm (157-399) 03/18/23 06:53 MPV 9.9 fL (7.4-10.4) 03/18/23 06:53 Neut % (Auto) 66.0 % 03/18/23 06:53 Lymph % (Auto) 22.2 % 03/18/23 06:53 Pettis % (Auto) 8.9 % 03/18/23 06:53 Eos % (Auto) 1.8 % 03/18/23 06:53 Baso % (Auto) 0.9 % 03/18/23 06:53 Neut # (Auto) 3.72 10^3/uL (1.8-7.7) 03/18/23 06:53 Lymph # (Auto) 1.3 10^3/uL (0.8-4.8) 03/18/23 06:53 Pettis # (Auto) 0.5 10^3/uL (0.2-0.9) 03/18/23 06:53 Eos # (Auto) 0.1 10^3/uL (0.0-0.8) 03/18/23 06:53 Baso # (Auto) 0.1 10^3/uL (0.0-0.1) 03/18/23 06:53 Nucleated RBC % (auto) 0 % 03/18/23 06:53 Nucleated RBCs # 0.0 /100WBC 03/18/23 06:53 Sodium 141 mmol/L (136-145) 03/18/23 06:53 Potassium 3.7 mmol/L (3.5-5.1) 03/18/23 06:53 Chloride 101 mmol/L (98-107) 03/18/23 06:53 Carbon Dioxide 23 mmol/L (22-29) 03/18/23 06:53 Anion Gap 20.7 (5-19) H 03/18/23 06:53 BUN 21 mg/dL (6-20) H 03/18/23 06:53 Creatinine 0.6 mg/dL (0.5-0.9) 03/18/23 06:53 GFR Calculation 103.0 mL/min (90-130) 03/18/23 06:53 Glucose 92 mg/dL (65-115) 03/18/23 06:53 Calculated Osmolality 295 mOsm/kg (285-295) 03/18/23 06:53 Calcium 10.0 mg/dL (8.5-10.5) 03/18/23 06:53 Total Bilirubin 0.7 mg/dL (0.15-1.2) 03/18/23 06:53 AST 9 U/L (0-32) 03/18/23 06:53 ALT 7 U/L (0-33) 03/18/23 06:53 Alkaline Phosphatase 76 U/L (35-105) 03/18/23 06:53 Total Protein 7.3 g/dL (6.6-8.7) 03/18/23 06:53 Albumin 4.5 g/dL (3.5-5.2) 03/18/23 06:53 Globulin 2.8 g/dL (1.3-4.6) 03/18/23 06:53 Salicylates < 0.3 mg/dL (3-10) L 03/18/23 06:53 Acetaminophen < 5.0 ug/mL (10-30) L 03/18/23 06:53 No radiology studies performed this visit Discharge Plan Discharge Patient Disposition: Admitted As Inpatient Admit Provider: Baltazar Rider Clinical Impression: Acute anxiety, Multiple sclerosis, Depression Condition: Stable Coding Level of Care Code ED Customer Advisor Specialist for Jesus De Luna
[2023-03-18 06:59] LABS: Basophils # 0.1 10^3/uL (0.0-0.1); Basophils % 0.9 %; Eosinophils # 0.1 10^3/uL (0.0-0.8); Eosinophils % 1.8 %; Hematocrit 44.1 % (36-47); Lymphocytes # 1.3 10^3/uL (0.8-4.8); Lymphocytes % 22.2 %; Mean Corpuscular HGB Conc 33.1 g/dL (30-55); Mean Corpuscular Hemoglobin 30.1 pg (27-33); Mean Corpuscular Volume 90.9 fl (85-98); Mean Platelet Volume 9.9 fL (7.4-10.4); Monocytes # 0.5 10^3/uL (0.2-0.9); Monocytes % 8.9 %; Neutrophils # 3.72 10^3/uL (1.8-7.7); Nucleated Red Blood Cells % 0 %; Platelet Count 348 10^3/cmm (157-399); Red Blood Count 4.85 10^6/uL (3.85-5.65); Red Cell Distribution Width 12.6 % (12.1-15.1); White Blood Count 5.63 10^3/uL (3.29-11.43)
--- NOTE | 2023-03-18 07:16 | PC.PHAR ---
pt states she takes care of her own medications-pt states she is only taking dimethyl fumarate dr 240mg bid-pt states she no longer takes cymbalta 60mg or 30 mg daily-pt states she no longer takes baclofen 10mg qid prn or linzess 145mcg daily-no meds pull up on ext med history
[2023-03-18 07:19] LABS: Alanine Aminotransferase 7 U/L (0-33); Albumin Level 4.5 g/dL (3.5-5.2); Alkaline Phosphatase 76 U/L (35-105); Anion Gap 20.7 (5-19); Aspartate Amino Transferase 9 U/L (0-32); Blood Urea Nitrogen 21 mg/dL (6-20); Carbon Dioxide 23 mmol/L (22-29); Chloride 101 mmol/L (98-107); Globulin 2.8 g/dL (1.3-4.6); Glucose 92 mg/dL (65-115); Osmolality Calculated 295 mOsm/kg (285-295); Potassium 3.7 mmol/L (3.5-5.1); Sodium 141 mmol/L (136-145); Total Bilirubin 0.7 mg/dL (0.15-1.2); Total Protein 7.3 g/dL (6.6-8.7)
[2023-03-18 07:28] LABS: Salicylate < 0.3 mg/dL (3-10)
[2023-03-18 07:29] LABS: Acetaminophen < 5.0 ug/mL (10-30)
[2023-03-18 13:37] VITALS: BP 124/77; PULSE 115; O2SAT 99
[2023-03-18 14:21] VITALS: BP 121/54; PULSE 119; RESP 16; TEMP 36.8; O2SAT 97
--- NOTE | 2023-03-18 15:47 | PC.NURSE ---
Nurse, Mana, in ER told this RN in report handoff that patient had called the nonemergent police line due to needing help putting on her pants. Then she had called EMS to move her laundry. Patient then said her boyfriend was in the half-way and she felt overwhelmed. When patient arrived to unit she told this RN that she was only here because the doctor decided she should be and that she didn't know why. She did endorse being overwhelmed, but said her significant other had been in the half-way for a long time. She denied avh and si/hi. She says her significant other (Gal Yu)'s niece and the niece's daughters helped her at home often. Patient does have multiple sclerosis and has weakness of all 4 extremities, so uses a walker. She does say she would like to talk about medications for sleep. Patient states she has a history of services at [facility] about 4-5 months ago, but has never had a history of hospitalization in a psychiatric facility. She denies any current substance abuse, but does endorse past use of alcohol and marijuana.
[2023-03-18] MEDS: ibuprofen 600 mg Tablet PO (17:18)
[2023-03-18 20:50] VITALS: BP 109/65; PULSE 110; RESP 16; O2SAT 96
[2023-03-19] MEDS: OLANZapine 5 mg ODT PO (00:22)
[2023-03-19 06:00] VITALS: RESP 16
--- NOTE | 2023-03-19 06:44 | PC.NURSE ---
Patient resting. RR obtained
--- NOTE | 2023-03-19 13:03 | P.NPUHP_ITS ---
Providers/Chief Complaint 2 Admitting Physician: Baltazar Rider MD Primary Care Provider: Dariel Gaviria MD Chief Complaint: MHE HPI NPU History of Present Illness Elizabeth Garcia is a 57 year old female with a history of multiple sclerosis who presented to the emergency department by ambulance after the patient had been picked up from her home. The patient had been referred to EMS after she had made a call to the police station asking the police to help the patient at home with changing her laundry. The patient had reported when asked as to why she was here she had great difficulty in providing any information other than stating that she was anxious and needed help. The patient was admitted to the neuropsychiatric unit for further evaluation and treatment. The patient reports that approximately 1 month ago her live-in boyfriend had a stroke and was sent to live in a assisted living facility for recovery. The patient reports that since that time, she has had difficulty with managing her moods and reports that she has had a hard time managing her own self-care as she states that she struggles with walking and has frequent falls. Information gathered from friends had suggested that the patient had problems with accuracy of dates and that the patient over the last 2 months had been living by herself with several [facility] family members coming into the home several times a week to help with the patient's care. There are reports that the patient has been unable to engage in activities of daily living without some prompting. She is unable to drive. She has been struggling with paying bills and has relinquished this duty to her friends. The patient had stated urgently that she needed to care for her cats. Patient did acknowledge that she had been depressed for a great deal of time. She reports struggles with falling asleep and staying asleep. She reports low energy and did not endorse any increased tearfulness. She reports that she has been more confused and reports having significant problems with her memory. The patient denied any history of rosi, she denied any history of psychosis. She had reported that she had struggled immensely with the chronic effects of her multiple sclerosis. The patient reports having significant anxiety and reported that it was often associated with being around others. She reports often being unable to control her worry. Inpatient psychiatric history: None reported Outpatient psychiatric history: She had intimated having previously seen a psychiatrist and a therapist for depression but was unable to provide any clear dates. Allergies: No known drug allergies Surgeries: None reported Medical history: History of MS. Drug and alcohol hx: none reported Legal hx: none Family hx: unknown Current medications: dimethyl fumarate, linzess, cymbalta 90mg (noncompliant for several months) Social history: She reports that she was born in [facility] and raised by both her parents in an intact family. She reports that she had an older brother who of leukemia. She had stated that she had graduated high school and attended college briefly. She denied any history of sexual physical or emotional abuse. She states that she had been previously 1 time and has been for many years. She reports that she had no children. She states that she was living in [place] in a house owned by her family and had a live-in boyfriend that had been supportive until he left approximately 2 months ago. She reports having no children. She reports that she has 4 cats. She reports that she has not worked in several years but used to work in a hospital helping care for others. She reports that she has been disabled for many years. She reports that she does not smoke. Meds NPU Home Medications Medication Instructions Recorded Confirmed Last Taken Type dimethyl fumarate 240 mg 240 mg PO BID 90 days #180 caps 03/05/23 03/18/23 03/18/23 Rx capsule,delayed release Allergies Allergy/AdvReac Type Severity Reaction Status Date / Time No Known Allergies Allergy Verified 03/18/23 07:16 PFS NPU 2 PFSH: Medical History (Updated 03/19/23 @ 18:14 by Baltazar Rider MD) Multiple sclerosis Family History Brother Cancer Father CHF (congestive heart failure) Social History Smoking and tobacco/nicotine status: never used tobacco/nicotine Alcohol intake: never Mental Status Exam 2 MSE Comments: She is a casually dressed white female who appeared thin and older than her stated age. Her hygiene appeared poor. She has struggled with her gait without the use of a walker. She was pleasant and cooperative on interview. She was alert and oriented only to person and place but not date, month,year, season, or day of the week. She recognized the date of her . She was to recall past presidents x1, she was able to spell world forwards but not backwards at all. Registration of 3 words was 3 out of 3 and 0 out of 3 at 5 minutes. Abstraction was limited regarding proverbs. she struggled with following three- step commands. Her speech was normal in volume and somewhat diminished in rate with some evidence of word finding abilities. Thought process was linear logical but were unlinked to 1 another during the interview. Her thought content was superficial. She denied any homicidal or suicidal ideation. She did not appear to be responding to internal stimuli. There was no clear evidence of delusional thinking. Her attention span was fair. Her mood was described as depressed. Her affect was restricted in range and mood incongruent. Vitals/I&O/Wt Last Vital Signs Temp 98.8 F 03/19/23 14:00 Pulse 127 H 03/19/23 14:00 Resp 20 H 03/19/23 14:00 BP 118/56 03/19/23 14:00 Pulse Ox 94 03/19/23 14:00 O2 Del Method Room Air 03/18/23 20:50 Weight last 48 hrs Weight 68.039 kg Data NPU 03/18/23 06:53 03/18/23 06:53 A&P Assessment and plan (1) Dementia associated with multiple sclerosis: (2) Depression: (3) Acute anxiety: Plan 57-year-old female with a past history of depression and anxiety along with active medical history significant for multiple sclerosis admitted with unusual behavior leading to her arrival into the emergency department and into the psychiatric facility here. Dementia is of great concern here given her confusion and signficant memory problems. 1. Encourage individual, group and milieu therapy. 2. Recommend sober living treatment at the highest level of care to which the patient is willing to commit. 3. Continue q-15 minute checks for safety.? 4.? Patient agreeable to trial of cymbalta to target anxiety and depression. 5.? Will attempt to gather collateral information. She has few social supports, she may require mcc placement. Will order Norberto evaluation of living skills. Involuntary Hold Information 2 96 Hour Hold: 96 Hour Involuntary Admission: No Attestations NPU 2 Medical Necessity Statement*: Inpatient hospitalization is medically necessary and deemed to be the clinically appropriate intervention at this time. Medications will be initiated and adjusted as clinically indicated. Patient will be in the hospital for at least 2 midnights. The patient's likely length of stay is 5 to 7 days. Coding Level of Care Code Acute Code for Chg Fwd Diagnoses Dementia associated with multiple sclerosis G35; F02.80 Depression F32.A Acute anxiety F41.9
[2023-03-19 14:00] VITALS: BP 118/56; PULSE 127; RESP 20; TEMP 37.1; O2SAT 94
[2023-03-19] MEDS: ibuprofen 600 mg Tablet PO (15:14)
[2023-03-19] MEDS: duloxetine 30 mg Capsule PO (18:01)
[2023-03-19] MEDS: hyDROXYzine 25 mg Capsule 50 MG PO (20:10)
[2023-03-19] MEDS: trazodone 50 mg Tablet PO (20:10)
[2023-03-19 20:37] VITALS: BP 145/69; PULSE 98; RESP 16; TEMP 36.6; O2SAT 95
--- NOTE | 2023-03-19 20:43 | PC.NURSE ---
IN BED RESTING. DENIES SI/HI AND AVH AT THIS TIME. DENIES PAIN. PT REPORTS SHE HAS HAD MS FOR SEVERAL YEARS AND SHE NEEDS HELP AT HOME. PT ASSURED THAT RN WOULD LET CASE MANAGEMENT KNOW TO SEE IF THEY CAN SET UP HOME HEALTH. PT IS PLEASED IS TO HEAR THAT. RATES ANXIETY 07/09 AND DEPRESSION 09/08. PT WAS GIVEN TRAZODONE 50 MG ORDERED FOR INSOMNIA AND VISTARIL 50 MG ORDERED FOR INCREASED ANXIETY. PT USES WALKER AND WHEELCHAIR FOR MOBILITY AROUND THE UNIT. ALL QUESTIONS ANSWERED AND SUPPORT WAS VOICED. DENIES PAIN.
[2023-03-20] MEDS: OLANZapine 5 mg ODT PO ×2 (02:02→20:07)
[2023-03-20 06:00] VITALS: RESP 16
--- NOTE | 2023-03-20 06:28 | PC.NURSE ---
PT WAS GIVEN TRAZODONE AND VISTARIL LAST NIGHT FOR INSOMNIA AND ANXIETY. PT HAS SLEPT APPROXIMATELY 9 HOURS, MEDICATIONS ARE DEEMED EFFECTIVE AT THIS TIME.
[2023-03-20] MEDS: ibuprofen 600 mg Tablet PO ×2 (09:03→17:23)
[2023-03-20] MEDS: duloxetine 30 mg Capsule PO (09:04)
[2023-03-20] MEDS: acetaminophen 325 mg Tablet 650 MG PO (11:01)
[2023-03-20 14:00] VITALS: BP 140/64; PULSE 92; RESP 20; TEMP 36.6; O2SAT 97
--- NOTE | 2023-03-20 14:52 | DCPLANNER ---
IMM was given to pt and copy placed in file.
--- NOTE | 2023-03-20 16:52 | P.NPUPN_ITS ---
Subjective NPU 2 Subjective: Patient is a 57-year-old white female with a history of dementia likely associated with multiple sclerosis along with depression and anxiety admitted with an inability to care for herself in the home environment. Patient had continued to appear somewhat confused on the unit. She had isolated herself. She had required significant supportive care for completion of activities of daily living. The patient had expressed that she was considering the possibility that she may require placement at a residential in order to function well. The results of the [facility] Evaluation of Living Skills revealed that the patient had required supervision in 11 out of 13 areas and strongly encouraged the need for the patient to receive constant supervision. The patient had been receiving significant services through support from the patient's boyfriend's extended family members for several years. The patient had been requiring support in the home for many years and discussion with family members had corroborated that the patient was functioning at baseline for the past several years with no worsening behavior and no overall worsening or decrease in her ability to function over the last few months despite the patient's [place] having recently gone to nursing care over the last 2 months. Patient continued to struggle with confusion regarding time and date. She had required redirection. She had been pleasant and redirectable on the unit. She was compliant with her medication regimen. Mental Status Exam 2 MSE Comments: She is a casually dressed white female who appeared thin and older than her stated age. Her hygiene appeared poor. She has struggled with her gait without the use of a walker. She was pleasant and cooperative on interview. She was alert and oriented only to person but not name of place or time. She had some word finding difficulties, She recognized and was able to recall the date of her . Abstraction was limited regarding proverbs. she struggled with following three-step commands. Her speech was normal in volume and somewhat diminished in rate with some evidence of word finding abilities. Thought process was linear and logical. Her thought content was superficial. She denied any homicidal or suicidal ideation. She did not appear to be responding to internal stimuli. There was no clear evidence of delusional thinking. Her attention span was fair. Her mood was described as okay. Her affect was restricted in range and mood incongruent. Her insight is impaired, Her judgement is poor, Her impulse control was poor. Vitals/I&O/Wt Last Vital Signs Temp 97.8 F 03/20/23 14:00 Pulse 92 03/20/23 14:00 Resp 20 H 03/20/23 14:00 BP 140/64 03/20/23 14:00 Pulse Ox 97 03/20/23 14:00 O2 Del Method Room Air 03/19/23 20:37 Data NPU 03/18/23 06:53 03/18/23 06:53 A&P Assessment and plan (1) Dementia associated with multiple sclerosis: (2) Depression: (3) Acute anxiety: Plan 57-year-old female with a past history of depression and anxiety along with active medical history significant for multiple sclerosis admitted with unusual behavior leading to her arrival into the emergency department and into the psychiatric facility here. Dementia is of great concern here given her confusion and signficant memory problems. 1. Encourage individual, group and milieu therapy. 2. Recommend sober living treatment at the highest level of care to which the patient is willing to commit. 3. Continue q-15 minute checks for safety.? 4.? Continue Cymbalta as prescribed. 5.? Will attempt to gather collateral information. She has few social supports, she may require residential placement. Discuss with extended family whether they wish to pursue guardianship. Involuntary Hold Information 2 96 Hour Hold: 96 Hour Involuntary Admission: No Attestations NPU 2 Medical Necessity Statement*: Inpatient hospitalization is medically necessary and deemed to be the clinically appropriate intervention at this time. Medications will be initiated and adjusted as clinically indicated. The patient's likely length of stay is 5 to 7 days. Coding Level of Care Code Acute Code for g Fwd Diagnoses Dementia associated with multiple sclerosis G35; F02.80 Depression F32.A Acute anxiety F41.9
--- NOTE | 2023-03-20 20:04 | PC.NURSE ---
IN BED RESTING PT REPORTS SHE HAD A HARD DAY AND FEELS LIKE I HAD A RELAPSE WITH MY MS. PT DENIES SI/HI AND AVH AT THIS TIME. DENIES PAIN. PT STATES SHE FEELS UNSTEADY ON FEET. PT WAS ASSURED THAT RN WOULD BRING HER MEDICATIONS AT BED TIME. PT IS APPRECIATIVE. PT REQUESTS ANXIETY MEDS AND SLEEP MEDICATIONS. PT WILL BE GIVEN TRAZODONE 50 MG AND VISTARIL 50 MG ORDERED. ALL QUESTIONS WERE ANSWERED AND SUPPORT VOICED.
[2023-03-20] MEDS: trazodone 50 mg Tablet PO (20:07)
[2023-03-20 20:27] VITALS: BP 138/75; PULSE 108; RESP 16; TEMP 36.4; O2SAT 98
[2023-03-20] MEDS: haloperidol 5 mg Tablet PO (22:00)
[2023-03-21 06:00] VITALS: RESP 16
--- NOTE | 2023-03-21 06:33 | PC.NURSE ---
Patient sleeping. RR obtained.
[2023-03-21] MEDS: ibuprofen 600 mg Tablet PO (08:55)
[2023-03-21] MEDS: duloxetine 30 mg Capsule PO (08:55)
[2023-03-21] MEDS: hyDROXYzine 25 mg Capsule 50 MG PO (12:20)
[2023-03-21 14:00] VITALS: BP 123/68; PULSE 94; RESP 20; TEMP 36.6; O2SAT 96
--- NOTE | 2023-03-21 15:32 | P.NPUDS_ITS ---
Diagnoses at Discharge Discharge Diagnosis (1) Dementia associated with multiple sclerosis: Status: Acute (2) Depression: Status: Acute (3) Acute anxiety: Status: Acute Reason for Visit Reason for Visit: MHE Brief History: History of Present Illness Elizabeth Garcia is a 57 year old female with a history of multiple sclerosis who presented to the emergency department by ambulance after the patient had been picked up from her home. The patient had been referred to EMS after she had made a call to the police station asking the police to help the patient at home with changing her laundry. The patient had reported when asked as to why she was here she had great difficulty in providing any information other than stating that she was anxious and needed help. The patient was admitted to the neuropsychiatric unit for further evaluation and treatment. The patient reports that approximately 1 month ago her live-in boyfriend had a stroke and was sent to live in a assisted living facility for recovery. The patient reports that since that time, she has had difficulty with managing her moods and reports that she has had a hard time managing her own self-care as she states that she struggles with walking and has frequent falls. Information gathered from friends had suggested that the patient had problems with accuracy of dates and that the patient over the last 2 months had been living by herself with several [facility] family members coming into the home several times a week to help with the patient's care. There are reports that the patient has been unable to engage in activities of daily living without some prompting. She is unable to drive. She has been struggling with paying bills and has relinquished this duty to her friends. The patient had stated urgently that she needed to care for her cats. Patient did acknowledge that she had been depressed for a great deal of time. She reports struggles with falling asleep and staying asleep. She reports low energy and did not endorse any increased tearfulness. She reports that she has been more confused and reports having significant problems with her memory. The patient denied any history of rosi, she denied any history of psychosis. She had reported that she had struggled immensely with the chronic effects of her multiple sclerosis. The patient reports having significant anxiety and reported that it was often associated with being around others. She reports often being unable to control her worry. Inpatient psychiatric history: None reported Outpatient psychiatric history: She had intimated having previously seen a psychiatrist and a therapist for depression but was unable to provide any clear dates. Allergies: No known drug allergies Surgeries: None reported Medical history: History of MS. Drug and alcohol hx: none reported Legal hx: none Family hx: unknown Current medications: dimethyl fumarate, linzess, cymbalta 90mg (noncompliant for several months) Social history: She reports that she was born in [facility] and raised by both her parents in an intact family. She reports that she had an older brother who of leukemia. She had stated that she had graduated high school and attended college briefly. She denied any history of sexual physical or emotional abuse. She states that she had been previously 1 time and has been for many years. She reports that she had no children. She states that she was living in [place] in a house owned by her family and had a live-in boyfriend that had been supportive until he left approximately 2 months ago. She reports having no children. She reports that she has 4 cats. She reports that she has not worked in several years but used to work in a hospital helping care for others. She reports that she has been disabled for many years. She reports that she does not smoke. Hospital Course Hospital Course During the hospitalization, the patient had routine laboratory studies which were within normal limits except for a few outliers.? Additionally, there was a general medical evaluation which was also within normal limits and revealed no new acute processes.? At the time of discharge, lethality was denied and psychosis was resolving.? Mood and anxiety were well managed.? The patient endorsed a plan to avoid all drugs of abuse and follow up with the aftercare recommendations of the treatment team.? The patient was evaluated and deemed to be absent credible lethality and had achieved the maximum benefit from an inpatient hospitalization, and so was discharged.?[facility] Evaluation of Living Skills supported that the patient required constant supervision in the home. The patient had extended family that was informed of this information and had planned to have support in the home on daily basis to support this patient as the patient had been receiving this support by these family members for the last five to ten years. The patient and their extended family was informed that a shelter placement would likely be necessary if they failed to manage her at home at this time. Involuntary Hold Information 96 Hour Hold: 96 Hour Involuntary Admission: No Mental Status Exam MSE Comments: She is a casually dressed white female who appeared thin and older than her stated age. Her hygiene appeared poor. She has struggled with her gait without the use of a walker. She was pleasant and cooperative on interview. She was alert and oriented only to person and place. She had some word finding difficulties, She recognized and was able to recall the date of her . Her speech was normal in volume and normal in rate with some evidence of word finding abilities. Thought process was linear and logical. Her thought content was superficial. She denied any homicidal or suicidal ideation. She did not appear to be responding to internal stimuli. There was no clear evidence of delusional thinking. Her attention span was fair. Her mood was described as okay. Her affect remained somewhat flat. Her insight is limited. Her judgement is at baseline. Her impulse control was adequate. Her recent and remote memory are poor. Discharge Data Studies Completed and Pending: Pending at discharge Category Date Time Status Drug Screen, Urin e Routine Lab 03/18/23 14:29 Uncollected Laboratory Results WBC 5.63 10^3/uL (3.2 9-11.43) 03/18/23 06:53 RBC 4.85 10^6/uL (3.8 5-5.65) 03/18/23 06:53 Hgb 14.60 g/dL (11.27 -16.99) 03/18/23 06:53 Hct 44.1 % (36-47) 03/18/23 06:53 MCV 90.9 fl (85-98) 03/18/23 06:53 MCH 30.1 pg (27-33) 03/18/23 06:53 MCHC 33.1 g/dL (30-55) 03/18/23 06:53 RDW 12.6 % (12.1-15.1 ) 03/18/23 06:53 Plt Count 348 10^3/cmm (157 -399) 03/18/23 06:53 MPV 9.9 fL (7.4-10.4) 03/18/23 06:53 Neut % (Auto) 66.0 % 03/18/23 06:53 Lymph % (Auto) 22.2 % 03/18/23 06:53 [place] % (Auto) 8.9 % 03/18/23 06:53 Eos % (Auto) 1.8 % 03/18/23 06:53 Baso % (Auto) 0.9 % 03/18/23 06:53 Neut # (Auto) 3.72 10^3/uL (1.8 -7.7) 03/18/23 06:53 Lymph # (Auto) 1.3 10^3/uL (0.8- 4.8) 03/18/23 06:53 [place] # (Auto) 0.5 10^3/uL (0.2- 0.9) 03/18/23 06:53 Eos # (Auto) 0.1 10^3/uL (0.0- 0.8) 03/18/23 06:53 Baso # (Auto) 0.1 10^3/uL (0.0- 0.1) 03/18/23 06:53 Nucleated RBC % (a uto) 0 % 03/18/23 06:53 Nucleated RBCs # 0.0 /100WBC 03/18/23 06:53 Sodium 141 mmol/L (136-1 45) 03/18/23 06:53 Potassium 3.7 mmol/L (3.5-5 .1) 03/18/23 06:53 Chloride 101 mmol/L (98-10 7) 03/18/23 06:53 Carbon Dioxide 23 mmol/L (22-29) 03/18/23 06:53 Anion Gap 20.7 (5-19) H 03/18/23 06:53 BUN 21 mg/dL (6-20) H 03/18/23 06:53 Creatinine 0.6 mg/dL (0.5-0. 9) 03/18/23 06:53 GFR Calculation 103.0 mL/min (90- 130) 03/18/23 06:53 Glucose 92 mg/dL (65-115) 03/18/23 06:53 Calculated Osmolal ity 295 mOsm/kg (285- 295) 03/18/23 06:53 Calcium 10.0 mg/dL (8.5-1 0.5) 03/18/23 06:53 Total Bilirubin 0.7 mg/dL (0.15-1 .2) 03/18/23 06:53 AST 9 U/L (0-32) 03/18/23 06:53 ALT 7 U/L (0-33) 03/18/23 06:53 Alkaline Phosphata se 76 U/L (35-105) 03/18/23 06:53 Total Protein 7.3 g/dL (6.6-8.7 ) 03/18/23 06:53 Albumin 4.5 g/dL (3.5-5.2 ) 03/18/23 06:53 Globulin 2.8 g/dL (1.3-4.6 ) 03/18/23 06:53 Salicylates < 0.3 mg/dL (3-10 ) L 03/18/23 06:53 Acetaminophen < 5.0 ug/mL (10-3 0) L 03/18/23 06:53 Vitals: Last Vital Signs Temp 97.6 F 03/20/23 20:27 Pulse 108 H 03/20/23 20:27 Resp 16 03/21/23 06:00 BP 138/75 03/20/23 20:27 Pulse Ox 98 03/20/23 20:27 O2 Del Method Room Air 03/19/23 20:37 Discharge Plan Discharge Patient Disposition: Home Condition: Stable Prescriptions: New duloxetine 30 mg Capsule,Delayed Release(Dr/Ec) 30 mg PO DAILY 30 Days Qty: 30 1RF Continued dimethyl fumarate 240 mg capsule,delayed release(DR/EC) 240 mg PO BID 90 Days Qty: 180 3RF Discharge Orders: Discharge Order (Routine); Ordered 03/21/23 Ordered By: Baltazar Rider Referrals: [facility] [Outside] - 03/24/23 9:30 am (Initial appointment set for 03/24/23 @ 09:30 am) Nuvia Matson MD [Physician] - Dariel Gaviria MD [Primary Care Provider] - Discharge Diet: Usual diet Discharge Activity: Resume usual activity Patient Instructions: Opioid Safety Discharge Attestations NPU Time Spent in Discharge Care*: less than 30 min Specific Discharge Activities: Specific discharge activities: educating patient and documenting/other paperwork Coding Level of Care Code Acute Code for Chg Fwd Diagnoses Dementia associated with multiple sclerosis G35; F02.80 Depression F32.A Acute anxiety F41.9
[2023-03-21 16:18] VITALS: RESP 16
== END 2023-03-21 17:48 | disposition home or self-care (01) | DRG 881 ==
LOC: ER 11:05 → NP 12:55
PROVIDERS: Admitting Provider Psychiatry & Neurology Psychiatry; Emergency Provider Family Medicine; PCP Family Medicine; Visit Provider Psychiatry & Neurology Psychiatry
DX: F32.A Depression, unspecified (principal); F02.80 Dementia in other diseases classified elsewhere, unspecified severity, without behavioral disturbance, psychotic disturbance, mood disturbance, and anxiety; G35 Multiple sclerosis; F41.9 Anxiety disorder, unspecified; Z91.81 History of falling
CPT/HCPCS: 36415; 80053; 80307; 85025; 97150; 97165; 97167; 99285

== ENCOUNTER 2023-03-23 14:56 | Observation (INO) | payer MEDICARE, MEDICAID, SELFPAY ==
[2023-03-23 14:58] VITALS: BP 143/78; PULSE 90; O2SAT 100; BMI 25.0
--- NOTE | 2023-03-23 15:08 | ED_ITS ---
HPI - Weakness 2 General: Chief complaint: Weakness Stated complaint: weakness Time Seen by Provider: 03/23/23 15:02 Source: patient Mode of arrival: EMS History of Present Illness: 57-year-old female with a history of mul tiple sclerosis (emergency room with complaints of generalized weakness she is very elusive in her answers. When asked if she still being treated she says well lets just say yes . Although when asked further she admits she has missed a lot of doses of her medications lately. Reviewing the chart she has not been seen since June 2022. She has been seen several times in the emergency room for psychological issues and accidental overdose as well. When seen today she is unable to reposition herself in bed is leaning to her left side and drooling unable to control secretions. She denies any recent illnesses. Denies fever sweats chills or shortness of breath. No chest or abdominal pain no dysuria urgency or frequency. Patient states she is incontinent and usually changes her own brace but she also has told us uses a walker to get to the bathroom. MD Complaint: generalized weakness Onset (ago): unknown Duration: constant Relieving factors: none Exacerbating factors: none Associated symptoms: Reports decreased appetite, myalgias and nausea; Denies chest pain, chills, confusion, melena, diaphoresis, dysuria, easy bruising, fever(s), headache(s), rash, short of breath, syncope or vomiting Review of Systems 2 Const: Denies: fever(s), chills or diaphoresis Card: Denies: chest pain or syncope Resp: Denies: dyspnea GI: Reports: nausea; Denies: abdominal pain, vomiting or melena : Denies: dysuria, urinary frequency or urinary urgency Musc: Denies: neck pain or back pain Skin/Breast: Denies: rash Neuro: Denies: headache(s) or confusion Gerald/Lymph: Denies: easy bruising PFSH ED 2 PFSH: Medical History Multiple sclerosis Family History Brother Cancer Father CHF (congestive heart failure) Social History Smoking and tobacco/nicotine status: never used tobacco/nicotine Alcohol intake: never Physical Exam 2 Const: GENERAL APPEARANCE: cooperative and comfortable O RIENTATION/CONSCIOUSNESS: Yes awake, Yes oriented to person, Yes oriented to place and Yes oriented to time HENMT: COMMON NORMALS: normocephalic, atraumatic and hearing grossly normal bilaterally HEAD & SCALP: normocephalic and atraumatic Resp: COMMON NORMALS: normal respiratory effort, No retractions, No use of accessory muscles and clear to auscultation bilaterally AUSCULTATION: clear to auscultation bilaterally Cardio: COMMON NORMALS: regular rate, regular rhythm and No murmurs present (Cardio) RATE: regular rate RHYTHM: regular rhythm GI: COMMON NORMALS: Soft to palpation and No hepatosplenomegaly present A USCULTATION: Yes normoactive bowel sounds PALPATION: Yes Soft to palpation, No Tenderness to palpation present (GI), No Guarding due to palpation present (GI) and Yes No hepatosplenomegaly present Extremity: COMMON NORMALS: normal to inspection, capillary refill normal, no clubbing, cyanosis or edema, no calf tenderness and no pedal edema Neuro: SENSORIUM/ORIENTATION: Yes oriented to person, Yes oriented to place and Yes oriented to time Skin: COMMON NORMALS: no rashes or lesions noted GENERAL SKIN EXAM: no rashes or lesions noted Course 2 Vital Signs: Vital signs: Vital Signs Pulse Rate 90 03/23/23 14:58 Blood Pressure 143/78 03/23/23 14:58 Pulse Oximetry 100 03/23/23 14:58 Oxygen Delivery Me thod Room Air 03/23/23 14:58 MDM - Weakness Medical Decision Making Patient has significant decrease in functional mobility. She not even able to able to reposition himself in bed or get to the toilet she tells me most of the time she can ambulate with a walker. According Dr. Matson's note she has been in the past however this was in June 2022 she has not been taking her medicines regularly by urine admission. At this point I think she has a significant of loss of function she will require hospitalization for MS exacerbation was started on methylprednisolone given [address] Guevara will admit. Also discussed with the patient possibility of need to go to the fdc she is agreeable to this possibility. Medical Records I reviewed the patient's medical records. Lab Data I reviewed the patient's lab results. 03/23/23 15:13 03/23/23 15:13 Laboratory Results WBC 10.17 10^3/uL (3.29-11.43) 03/23/23 15:13 RBC 4.68 10^6/uL (3.85-5.65) 03/23/23 15:13 Hgb 14.10 g/dL (11.27-16.99) 03/23/23 15:13 Hct 42.3 % (36-47) 03/23/23 15:13 MCV 90.4 fl (85-98) 03/23/23 15:13 MCH 30.1 pg (27-33) 03/23/23 15:13 MCHC 33.3 g/dL (30-55) 03/23/23 15:13 RDW 12.7 % (12.1-15.1) 03/23/23 15:13 Plt Count 311 10^3/cmm (157-399) 03/23/23 15:13 MPV 10.2 fL (7.4-10.4) 03/23/23 15:13 Neut % (Auto) 84.5 % 03/23/23 15:13 Lymph % (Auto) 7.6 % 03/23/23 15:13 [place] % (Auto) 6.4 % 03/23/23 15:13 Eos % (Auto) 0.5 % 03/23/23 15:13 Baso % (Auto) 0.6 % 03/23/23 15:13 Neut # (Auto) 8.60 10^3/uL (1.8-7.7) H 03/23/23 15:13 Lymph # (Auto) 0.8 10^3/uL (0.8-4.8) 03/23/23 15:13 [place] # (Auto) 0.7 10^3/uL (0.2-0.9) 03/23/23 15:13 Eos # (Auto) 0.1 10^3/uL (0.0-0.8) 03/23/23 15:13 Baso # (Auto) 0.1 10^3/uL (0.0-0.1) 03/23/23 15:13 Nucleated RBC % (auto) 0 % 03/23/23 15:13 Nucleated RBCs # 0.0 /100WBC 03/23/23 15:13 Sodium 143 mmol/L (136-145) 03/23/23 15:13 Potassium 3.6 mmol/L (3.5-5.1) 03/23/23 15:13 Chloride 103 mmol/L (98-107) 03/23/23 15:13 Carbon Dioxide 28 mmol/L (22-29) 03/23/23 15:13 Anion Gap 15.6 (5-19) 03/23/23 15:13 BUN 26 mg/dL (6-20) H 03/23/23 15:13 Creatinine 0.6 mg/dL (0.5-0.9) 03/23/23 15:13 GFR Calculation 103.0 mL/min (90-130) 03/23/23 15:13 Glucose 112 mg/dL (65-115) 03/23/23 15:13 Calculated Osmolality 302 mOsm/kg (285-295) H 03/23/23 15:13 Calcium 9.4 mg/dL (8.5-10.5) 03/23/23 15:13 Total Bilirubin 1.4 mg/dL (0.15-1.2) H 03/23/23 15:13 AST 34 U/L (0-32) H 03/23/23 15:13 ALT 19 U/L (0-33) 03/23/23 15:13 Alkaline Phosphatase 87 U/L (35-105) 03/23/23 15:13 Total Protein 7.2 g/dL (6.6-8.7) 03/23/23 15:13 Albumin 4.3 g/dL (3.5-5.2) 03/23/23 15:13 Globulin 2.9 g/dL (1.3-4.6) 03/23/23 15:13 Urine Color Yellow (Yellow) 03/23/23 15:35 Urine Appearance Sl hazy (CLEAR) A 03/23/23 15:35 Urine pH 5 (5-7) 03/23/23 15:35 Ur Specific [place] 1.025 (1.005-1.030) 03/23/23 15:35 Urine Protein 1+ (Negative) H 03/23/23 15:35 Urine Glucose (UA) Norm (Normal) 03/23/23 15:35 Urine Ketones 1+ (Negative) H 03/23/23 15:35 Urine Blood 2+ (Negative) H 03/23/23 15:35 Urine Nitrate Negative (Negative) 03/23/23 15:35 Urine Bilirubin 1+ (Negative) H 03/23/23 15:35 Urine Urobilinogen 1 mg/dL (Negative) H 03/23/23 15:35 Ur Leukocyte Esterase Trace (Negative) H 03/23/23 15:35 Urine RBC 0-4 /hpf (0-2) H 03/23/23 15:35 Urine WBC None /hpf (0-5) 03/23/23 15:35 Ur Squamous Epith Cells 0-4 /hpf (0-5) H 03/23/23 15:35 Calcium Oxalate Crystal 15-25 /hpf H 03/23/23 15:35 Amorphous Sediment Not Reportable 03/23/23 15:35 Urine Bacteria Trace /hpf (NONE) 03/23/23 15:35 Urine Mucus 3+ /hpf 03/23/23 15:35 All radiology interpretation(s) finalized by discharge Discharge Plan Discharge Condition: Stable Prescriptions: No Action dimethyl fumarate 240 mg capsule,delayed release(DR/EC) 240 mg PO BID 90 Days Qty: 180 3RF duloxetine 30 mg Capsule,Delayed Release(Dr/Ec) 30 mg PO DAILY 30 Days Qty: 30 1RF Referrals: Dariel Gaviria MD [Primary Care Provider] - Coding Level of Care Code ED [employer] for Marcellg Annamarie
[2023-03-23 15:23] LABS: Basophils # 0.1 10^3/uL (0.0-0.1); Basophils % 0.6 %; Eosinophils # 0.1 10^3/uL (0.0-0.8); Eosinophils % 0.5 %; Hematocrit 42.3 % (36-47); Lymphocytes # 0.8 10^3/uL (0.8-4.8); Lymphocytes % 7.6 %; Mean Corpuscular HGB Conc 33.3 g/dL (30-55); Mean Corpuscular Hemoglobin 30.1 pg (27-33); Mean Corpuscular Volume 90.4 fl (85-98); Mean Platelet Volume 10.2 fL (7.4-10.4); Monocytes # 0.7 10^3/uL (0.2-0.9); Monocytes % 6.4 %; Neutrophils % 84.5 %; Nucleated Red Blood Cells % 0 %; Platelet Count 311 10^3/cmm (157-399); Red Blood Count 4.68 10^6/uL (3.85-5.65); Red Cell Distribution Width 12.7 % (12.1-15.1); White Blood Count 10.17 10^3/uL (3.29-11.43)
[2023-03-23 15:39] LABS: Alanine Aminotransferase 19 U/L (0-33); Albumin Level 4.3 g/dL (3.5-5.2); Alkaline Phosphatase 87 U/L (35-105); Anion Gap 15.6 (5-19); Aspartate Amino Transferase 34 U/L (0-32); Blood Urea Nitrogen 26 mg/dL (6-20); Calcium 9.4 mg/dL (8.5-10.5); Carbon Dioxide 28 mmol/L (22-29); Chloride 103 mmol/L (98-107); Globulin 2.9 g/dL (1.3-4.6); Glucose 112 mg/dL (65-115); Osmolality Calculated 302 mOsm/kg (285-295); Potassium 3.6 mmol/L (3.5-5.1); Sodium 143 mmol/L (136-145); Total Bilirubin 1.4 mg/dL (0.15-1.2); Total Protein 7.2 g/dL (6.6-8.7)
--- NOTE | 2023-03-23 15:42 | XR_ITS ---
WS: [id number] XR chest 1V portable [id number] REASON FOR EXAM: dyspnea/cough FINDINGS: The chest is unchanged compared to 08/12/2022. Moderate tortuosity and ectasia of the thoracic aorta. Normal heart size. Calcified granulomatous disease in both hemithoraces. No active pulmonary parenchymal or pleural disease is noted. Moderate thoracic scoliosis convex left. IMPRESSION: Stable chest with no acute abnormality.
[2023-03-23 16:00] LABS: Add Urine Microscopic? YES; Bilirubin Urine 1+ (Negative); Blood Urine 2+ (Negative); Glucose Urine UA Norm (Normal); Ketones Urine 1+ (Negative); Leukocyte Esterase Urine Trace (Negative); Nitrate Urine Negative (Negative); Protein Urine 1+ (Negative); Specific Gravity, Urine 1.025 (1.005-1.030); Urine Appearance SL Hazy (CLEAR); Urine Color Yellow (Yellow); pH Urine 5 (5-7)
[2023-03-23 16:01] LABS: Bacteria Urine TRACE /hpf; Mucus Urine 3+ /hpf; RBC Urine 0-4 /hpf (0-2); Squamous Epithelial Cell Urine 0-4 /hpf (0-5); Urobilinogen Urine 1 mg/dL (Negative)
[2023-03-23 16:03] LABS: Add Urine Culture? No; Calcium Oxalate Crystals Urine 15-25 /hpf
[2023-03-23] MEDS: methylPREDNISolone sod succ 1,000 MG in sodium chloride 0.9% 250 ML 258 MG IV (17:36)
--- NOTE | 2023-03-23 17:36 | CTR_ITS ---
PROCEDURE INFORMATION: Exam: CTA Head With Contrast, Arteriography Exam date and time: 03/23/2023 8:09 PM Age: 57 years old Clinical indication: Weakness; Additional info: Rle weakness TECHNIQUE: Imaging protocol: Computed tomographic angiography of the head with contrast. Exam focused on the arteries. 3D rendering (Not supervised by radiologist): MIP and/or 3D reconstructed images were created by the technologist. Radiation optimization: All CT scans at this facility use at least one of these dose optimization techniques: automated exposure control; mA and/or kV adjustment per patient size (includes targeted exams where dose is matched to clinical indication); or iterative reconstruction. Contrast material: OMNI 350; Contrast volume: 80 ml; Contrast route: INTRAVENOUS (IV); COMPARISON: CT head wo con* [id number] 08/12/2022 1:08 PM RADIATION DOSE METRICS: Total DLP (mGy-cm): 914 FINDINGS: ANTERIOR CIRCULATION: Right internal carotid artery: Intracranial segment is patent with no significant stenosis. No aneurysm. Right middle cerebral artery: No occlusion or significant stenosis. No aneurysm. Right anterior cerebral artery: No occlusion or significant stenosis. No aneurysm. Left internal carotid artery: Intracranial segment is patent with no significant stenosis. No aneurysm. Left middle cerebral artery: No occlusion or significant stenosis. No aneurysm. Left anterior cerebral artery: No occlusion or significant stenosis. No aneurysm. POSTERIOR CIRCULATION: Right vertebral artery: No occlusion or significant stenosis. No aneurysm. Left vertebral artery: No occlusion or significant stenosis. No aneurysm. Basilar artery: No occlusion or significant stenosis. No aneurysm. Right posterior cerebral artery: No occlusion or significant stenosis. No aneurysm. Left posterior cerebral artery: No occlusion or significant stenosis. No aneurysm. Brain: Chronic lacunar type infarcts in the basal ganglia are unchanged. No mass effect or hemorrhage. Cerebral ventricles: No ventriculomegaly. Paranasal sinuses: Scattered paranasal sinus mucosal thickening, without air-fluid level present. Bones/joints: Unremarkable. No acute fracture. Soft tissues: Unremarkable. PROCEDURE INFORMATION: Exam: CTA Neck With Contrast Exam date and time: 03/23/2023 8:09 PM Age: 57 years old Clinical indication: Weakness; Additional info: Rle weakness TECHNIQUE: Imaging protocol: Computed tomographic angiography of the neck with contrast. Exam focused on the cervical segments of the vasculature. 3D rendering (Not supervised by radiologist): MIP and/or 3D reconstructed images were created by the technologist. Radiation optimization: All CT scans at this facility use at least one of these dose optimization techniques: automated exposure control; mA and/or kV adjustment per patient size (includes targeted exams where dose is matched to clinical indication); or iterative reconstruction. Contrast material: OMNI 350; Contrast volume: 80 ml; Contrast route: INTRAVENOUS (IV); COMPARISON: CT head wo con* [id number] 08/12/2022 1:08 PM RADIATION DOSE METRICS: Total DLP (mGy-cm): 914 FINDINGS: Right common carotid artery: No stenosis. No dissection or occlusion. Right internal carotid artery: No stenosis of the extracranial segment. No dissection or occlusion. Right external carotid artery: No occlusion or stenosis of the origin. Left common carotid artery: No stenosis. No dissection or occlusion. Left internal carotid artery: No stenosis of the extracranial segment. No dissection or occlusion. Left external carotid artery: No occlusion or stenosis of the origin. Right vertebral artery: No stenosis. No dissection or occlusion. Left vertebral artery: No stenosis. No dissection or occlusion. Thyroid: Hypodense right-sided thyroid nodule measures 1.5 cm. Additional smaller bilateral thyroid nodules also present. Soft tissues: Normal. No significant soft tissue swelling. Bones/joints: No acute fracture. Other findings: There is a beaded appearance of the distal cervical internal carotid suggesting fibromuscular dysplasia. CT/CT angio headneck* [id number] IMPRESSION: No large vessel stenosis or occlusion. IMPRESSION: 1. No occlusion or significant stenosis. 2. Hypodense right-sided thyroid nodule measures 1.5 cm. Recommend ultrasound follow-up. COMMENTS: Consistent with the [employer]'s Incidental Findings Committee white paper (J [employer] Julieth Radiol 2015): In patients aged 35 years and older with an incidental thyroid nodule equal to or greater than 1.[address], MRI or extrathyroidal US, further evaluation with dedicated thyroid US is recommended for patients with normal life expectancy and without comorbidities. For smaller nodules without suspicious features, no further evaluation or follow up is recommended. REFERENCES: NASCET CRITERIA. The degree of stenosis in the cervical segment of the internal carotid artery is based on NASCET criteria. Normal is no stenosis. Mild is less than 50% stenosis. Moderate is 50-69% stenosis. Severe is 70% to 99% stenosis. Total occlusion is no detectable patent lumen.
[2023-03-23 18:00] VITALS: BP 168/78; RESP 18; O2SAT 98
--- NOTE | 2023-03-23 18:11 | P.HP_ITS ---
Providers/Chief Complaint 2 Admitting Physician: Neal Mac MD, hospitalist Primary Care Provider: Dariel Gaviria MD Chief Complaint: weakness History of Present Illness Elizabeth Garcia is a 57 year old female presenting from home with weakness over the last month, becoming less and less independent. She states for the last 2 to 3 days she is even had some right lower extremity weakness. She states this caused her to fall but she she did not hit her head neck or back. She was recently in the neuropsychiatric unit for anxiety and depression. She reports no specific pain. She seems to be leaning a little bit to the left, when I am interviewing her. She reports no shortness of breath, or recent illness. She attest to taking her Tecfidera and duloxetine. She reports she has been incontinent of stool for quite a while. She reports she typically walks with a walker but has not been able to lately. She seems rather upbeat when relating her history to me. Review of Systems 2 Card: Denies: chest pain Resp: Denies: dyspnea GI: Denies: abdominal pain, nausea or vomiting Medications/Allergies Home Medications Medication Instructions Recorded Confirmed Last Taken Type dimethyl fumarate 240 mg 240 mg PO BID 90 days #180 caps 03/05/23 03/18/23 03/18/23 Rx capsule,delayed release duloxetine 30 mg capsule,delayed 30 mg PO DAILY 30 days #30 caps 03/21/23 Unknown Rx release Allergies Allergy/AdvReac Type Severity Reaction Status Date / Time No Known Allergies Allergy Verified 03/23/23 15:04 PFSH Acute 2 PFSH: Medical History Depression Multiple sclerosis Family History Brother Cancer Father CHF (congestive heart failure) Social History Smoking and tobacco/nicotine status: never used tobacco/nicotine Alcohol intake: never Vitals/I&O/Wt Last Vital Signs Pulse 90 03/23/23 14:58 BP 143/78 03/23/23 14:58 Pulse Ox 100 03/23/23 14:58 O2 Del Method Room Air 03/23/23 14:58 Weight last 48 hrs Weight 68.039 kg Physical Exam 2 Narrative: General exam is white female, in no obvious distress. HEENT: Atraumatic normocephalic. Oropharynx clear. Neck is supple no lymphadenopathy or megaly Cardiovascular regular rate and rhythm without murmur, no S3 or S4 Lungs clear Abdomen is soft nontender Extremities no cyanosis clubbing or edema. Right lower extremity demonstrates slight weakness. There is no facial droop. There is no speech impediment. Right lower extremity has slight drift. Gait is not tested. Skin no rash Neuro no obvious focal deficits Data 03/23/23 15:13 03/23/23 15:13 Other Labs: I have ordered a CTA head and neck which is pending Chest x-ray by my read demonstrates no infiltrate, scoliosis is noted which may explain her tilt to the left. I have ordered an EKG. I reviewed her previous EKGs and CT heads A&P Assessment and plan (1) Multiple sclerosis: The emergency department physician was concerned regarding possible MS exacerbation 1 g of Solu-Medrol has already been ordered and given Will continue to follow for improvement. After other screening, will consider continuation of Solu-Medrol 1 g IV for 2 more days. Continue her Tecfidera I will review her symptomatology with her neurologist when available (2) Weakness: She has global weakness, and difficulty caring for ADLs according to the patient. Will obtain physical therapy and Occupational Therapy consults She has some focal weakness in her right lower extremity. This could be secondary to her MS, but cannot completely rule out CVA. Will have her take an aspirin. Will check her cholesterol with tomorrow's labs. Will get a CTA of her head and neck which will include a noncontrast CT. Will check an echocardiogram. May need further neurological imaging to delineate. Consider statin depending upon the above results Discharge planning consultation Plan Other medical problems as outlined in past medical history Full code SCDs and Lovenox for DVT prophylaxis Attestations 2 Medical Necessity Statement*: Will need greater than 2 midnight stay for evaluation and treatment of an MS exacerbation Diagnoses Multiple sclerosis G35 Weakness R53.1 Time Spent (min) 43
[2023-03-23] MEDS: acetaminophen 325 mg Tablet 650 MG PO (18:27)
[2023-03-23] MEDS: sodium chloride 0.9% 1,000 ML 75 ML IV (19:18)
[2023-03-23] MEDS: enoxaparin 40 mg/0.4 mL Syringe SUBCUT (19:18)
--- NOTE | 2023-03-23 19:24 | USCV_ITS ---
Elizabeth Garcia Age: 57 Gender: F : 1965 Exam Date: 03/23/2023 23:50 Ordering Phys: Neal Mac MD Technologist: RADHA [place] [facility] [place]: weakness and malaise x 2-3 days. Multiple Sclerosis. No history of cardiac intervention per patient. BP: 168 / 78 HR: 80 Rhythm: Sinus Technical Quality: Adequate MEASUREMENTS (Male / Female) Normal Values 2D ECHO LV Diastolic Diameter PLAX 3.5 cm 4.2 - 5.9 / 3.9 - 5.3 cm LV Systolic Diameter PLAX 2.0 cm IVS Diastolic Thickness 0.9 cm 0.6 - 1.0 / 0.6 - 0.9 cm IVS Systolic Thickness 1.5 cm LVPW Diastolic Thickness 0.9 cm 0.6 - 1.0 / 0.6 - 0.9 cm LVPW Systolic Thickness 0.7 cm LVOT Diameter 1.7 cm LV Ejection Fraction 2D Teich 73.1 % LV Ejection Fraction MOD 2C 52.2 % LV Ejection Fraction 2C AL 51.9 % LA Diameter 2.7 cm LA Width 2.8 cm LA Height 3.4 cm RA Width 2.7 cm RA Height 3.0 cm Aorta at Sinotubular Diameter 2.4 cm IVC Diameter 0.8 cm M-MODE Aortic Annulus Diameter 2.8 cm LA Ao Ratio MM 0.9 MV E Point Septal Separation 0.4 cm DOPPLER AV Peak Velocity 130.0 cm/s LVOT Peak Velocity 144.0 cm/s AV Area Cont Eq vti 2.0 cm squared AV Area Cont Eq pk 2.5 cm squared MV Peak Velocity 113.0 cm/s MV Area PHT 3.1 cm squared Mitral E to A Ratio 0.8 MV E' Velocity 45.0 cm/s Mitral E to MV E' Ratio 9.5 Mitral E to LV E' Lateral Ratio 8.9 Mitral E to LV E' Septal Ratio 10.2 TV Peak E Velocity 43.0 cm/s PV Peak Velocity 98.0 cm/s RV Acceleration Time 0.1 s RV Ejection Time 0.3 s RV AcT/ET 0.4 FINDINGS Left Ventricle Normal left ventricular size and systolic function, EF 65 %. No regional wall motion abnormalities. Right Ventricle Normal right ventricular size and systolic function. Right Atrium Normal right atrial size. Left Atrium Normal left atrial size. Mitral Valve No gross abnormalities noted Aortic Valve Mild aortic valve regurgitation. Tricuspid Valve No gross abnormalities noted Pulmonic Valve Pulmonic valve not well visualized. Pericardium Trivial pericardial effusion. Aorta Normal aortic annulus size. IVC Inferior vena cava not visualized. CONCLUSIONS Normal left ventricular size and systolic function, EF 65 %. No regional wall motion abnormalities. Mild aortic valve regurgitation. Trivial pericardial effusion. Possibly normal cardiac chamber sizes There are no intracardiac masses. No similar previous studies are available for comparison Dr Kristen Walker MD [facility] (Electronically Signed) Final Date: 24 March 2023 09:56 S
[2023-03-23 20:04] LABS: Chol HDL Ratio 3.53 mg/dL (0.0-4.40); Cholesterol 240 mg/dL (0-200); HDL Cholesterol 68 mg/dL (60-100); LDL Cholesterol Calculated 152 mg/dL (50-129); LDL HDL Ratio 2.24 RATIO (0.00-3.22); Triglycerides 100 mg/dL (0-150)
[2023-03-23] MEDS: iohexol 350 mg/mL 500 mL Btl (per mL) IV (20:19)
[2023-03-23] MEDS: aspirin 81 mg EC Tablet PO (20:21)
[2023-03-23 20:22] VITALS: BP 151/71; PULSE 112; RESP 16; O2SAT 97
[2023-03-23 20:48] VITALS: BP 131/59; PULSE 102; RESP 16; O2SAT 97
[2023-03-23 21:39] VITALS: BP 131/59; PULSE 102; RESP 16; O2SAT 97
[2023-03-23 21:46] VITALS: BP 139/70; PULSE 87; RESP 20; TEMP 36.7; O2SAT 99
[2023-03-23] MEDS: hyDROXYzine 25 mg Capsule PO (23:19)
[2023-03-24] VITALS: BP 109/62; PULSE 107; RESP 18; TEMP 36.7; O2SAT 95
[2023-03-24 04:35] VITALS: BP 110/62; PULSE 100; RESP 18; TEMP 36.7; O2SAT 96
[2023-03-24 04:43] LABS: Basophils % 0.3 %; Eosinophils % 0.3 %; Hematocrit 35.2 % (36-47); Lymphocytes # 0.4 10^3/uL (0.8-4.8); Lymphocytes % 11.2 %; Mean Corpuscular Hemoglobin 29.5 pg (27-33); Mean Corpuscular Volume 89.6 fl (85-98); Mean Platelet Volume 10.8 fL (7.4-10.4); Monocytes % 0.6 %; Neutrophils # 3.11 10^3/uL (1.8-7.7); Nucleated Red Blood Cells % 0 %; Platelet Count 262 10^3/cmm (157-399); Red Blood Count 3.93 10^6/uL (3.85-5.65); Red Cell Distribution Width 12.6 % (12.1-15.1); White Blood Count 3.57 10^3/uL (3.29-11.43)
[2023-03-24 05:16] LABS: Alanine Aminotransferase 16 U/L (0-33); Albumin Level 3.5 g/dL (3.5-5.2); Alkaline Phosphatase 71 U/L (35-105); Anion Gap 15.7 (5-19); Aspartate Amino Transferase 24 U/L (0-32); Blood Urea Nitrogen 21 mg/dL (6-20); Calcium 9.2 mg/dL (8.5-10.5); Carbon Dioxide 22 mmol/L (22-29); Chloride 105 mmol/L (98-107); Globulin 2.5 g/dL (1.3-4.6); Glomerular Filtration Rate 127.2 mL/min (90-130); Glucose 152 mg/dL (65-115); Magnesium 2.2 mg/dL (1.7-2.3); Osmolality Calculated 294 mOsm/kg (285-295); Potassium 3.7 mmol/L (3.5-5.1); Sodium 139 mmol/L (136-145); Total Bilirubin 0.8 mg/dL (0.15-1.2)
[2023-03-24 07:24] VITALS: BP 120/46; PULSE 87; RESP 15; TEMP 36.4; O2SAT 96
[2023-03-24] MEDS: sodium chloride 0.9% 1,000 ML 75 ML IV ×2 (09:55→23:59)
[2023-03-24] MEDS: duloxetine 30 mg Capsule PO (09:56)
[2023-03-24] MEDS: aspirin 81 mg EC Tablet PO (09:56)
--- NOTE | 2023-03-24 09:57 | PC.CHAP ---
Pastoral Care Encounter/Spiritual Assessment Type of Contact [] Declined delivery clerk visit [] Patient/Family/Request visit [] Outpatient visit [] Follow-up visit [] Physician referral [] Code/Alert [x] Routine visit [] Staff referral [] Actively dying [] Patient sleeping [] Family support [] [] Out of room [] Palliative care [] [] Receiving care in room [] Pre-surgical visit [] Trauma [] Long length of stay [] ICU visit [] Other: Relational/Emotional Strength [x] Patient feels connected with others/family/visitors/staff [] Distress [] Loneliness/isolation [] Abandonment Spirituality of Patient [x] Person of Cynthia [] Attends Caodaism of their Cynthia [x] Believes in Prayer [] Reads Bible or Alevism materials [] There are Spiritual issues to be addressed Dentist Interventions [x] Prayer [x] Active listening [] Non-anxious presence [x] Spiritual/emotional support [] Crisis/trauma care [] Spiritual counseling [] Bereavement support [] Provided bereavement packet [] Provided Bible/devotional materials [] Provided toy/stuffed animal, coloring book to patient or family member [] Provided Communion [] Anointing/[place] [] Salvation [x] Completed spiritual assessment [] Other: Impact on Illness or Injury [] Angry [] Fearful [] Anxious [] Often cries [] Exhaustion [] Unable to work [] Unable to attend tenriism [] Unable to walk/stand [] Unable to read [] Unable to drive [] Unable to eat/drink [] Unable to sleep [] Unable to be with family [] Patient intubated [] Other: Summary Time spent with patient 5 min
--- NOTE | 2023-03-24 11:31 | P.PN_ITS ---
Subjective 2 Subjective: Patient reports she still feels weak, but perhaps better with the steroid. She is eager to get the full course. This would be 3 days IV. She is interested in going to a nursing facility for care or rehab. Denies any other complaints. Medications: Reviewed: Yes Vitals/I&O/Wt Last Vital Signs Temp 97.5 F L 03/24/23 07:24 Pulse 87 03/24/23 07:24 Resp 15 03/24/23 07:24 BP 120/46 03/24/23 07:24 Pulse Ox 96 03/24/23 07:24 O2 Del Method Room Air 03/24/23 07:24 03/23/23 03/24/23 03/24/23 22:59 06:59 14:59 Intake Total 258 / 258 1240 / 1240 Balance 258 / 258 1240 / 1240 Weight last 48 hrs Weight 52.844 kg Weight 52.844 kg Weight 68.039 kg Physical Exam 2 Narrative: General exam no distress Neck is supple no lymphadenopathy or megaly Cardiovascular regular rate and rhythm without murmur, no S3 or S4 Lungs clear Abdomen is soft nontender Extremities no cyanosis clubbing or edema. Right lower extremity demonstrates slight weakness. There is no facial droop. There is no speech impediment. Right lower extremity has slight drift. Gait is not tested. Neuro no obvious focal deficits Data 03/24/23 04:28 03/24/23 04:28 A&P Assessment and plan (1) Multiple sclerosis: The emergency department physician was concerned regarding possible MS exacerbation 1 g of Solu-Medrol has already been ordered and given. Continue this for 2 doses with another dose today. Discussed care with her local neurologist. She believes Tecfidera can be discontinued at this time. Significant weakness appropriate for nursing facility placement for rehab and potential for continuing care. (2) Weakness: She has global weakness, and difficulty caring for ADLs according to the patient. Will obtain physical therapy and Occupational Therapy consults She has some focal weakness in her right lower extremity. CTA is negative. I believe this is most likely secondary to her MS. Discharge planning consultation Thyroid cyst was noted on CTA. Check TSH. Plan Other medical problems as outlined in past medical history Full code SCDs and Lovenox for DVT prophylaxis Attestations 2 Medical Necessity Statement*: Needs continued hospitalization for IV steroids for MS exacerbation Diagnoses Multiple sclerosis G35 Weakness R53.1 Time Spent (min) 23
[2023-03-24 11:52] VITALS: BP 134/64; PULSE 60; RESP 16; TEMP 36.6; O2SAT 96
[2023-03-24] MEDS: methylPREDNISolone sod succ 1,000 MG in sodium chloride 0.9% 250 ML 258 MG IV (13:09)
[2023-03-24 15:55] VITALS: BP 157/81; PULSE 91; RESP 16; TEMP 36.7; O2SAT 97
[2023-03-24] MEDS: enoxaparin 40 mg/0.4 mL Syringe SUBCUT (18:18)
[2023-03-24 20:00] VITALS: BP 103/62; PULSE 95; RESP 17; TEMP 36.7; O2SAT 97
[2023-03-25] VITALS: BP 117/68; PULSE 91; RESP 17; TEMP 36.6; O2SAT 96
[2023-03-25] MEDS: hyDROXYzine 25 mg Capsule PO (00:54)
[2023-03-25] MEDS: acetaminophen 325 mg Tablet 650 MG PO (02:43)
[2023-03-25 04:00] VITALS: BP 120/63; PULSE 88; RESP 18; TEMP 36.3; O2SAT 95
[2023-03-25 05:48] LABS: Basophils % 0.1 %; Hematocrit 31.9 % (36-47); Lymphocytes # 0.5 10^3/uL (0.8-4.8); Lymphocytes % 4.5 %; Mean Corpuscular HGB Conc 32.9 g/dL (30-55); Mean Corpuscular Hemoglobin 29.9 pg (27-33); Mean Corpuscular Volume 90.9 fl (85-98); Mean Platelet Volume 11.4 fL (7.4-10.4); Monocytes # 0.3 10^3/uL (0.2-0.9); Monocytes % 2.8 %; Neutrophils # 9.75 10^3/uL (1.8-7.7); Neutrophils % 92.2 %; Nucleated Red Blood Cells % 0 %; Platelet Count 242 10^3/cmm (157-399); Red Blood Count 3.51 10^6/uL (3.85-5.65); White Blood Count 10.58 10^3/uL (3.29-11.43)
[2023-03-25 06:16] LABS: Anion Gap 12.6 (5-19); Blood Urea Nitrogen 23 mg/dL (6-20); Calcium 8.9 mg/dL (8.5-10.5); Carbon Dioxide 24 mmol/L (22-29); Chloride 109 mmol/L (98-107); Glomerular Filtration Rate 127.2 mL/min (90-130); Glucose 147 mg/dL (65-115); Osmolality Calculated 300 mOsm/kg (285-295); Potassium 3.6 mmol/L (3.5-5.1); Sodium 142 mmol/L (136-145); Thyroid Stimulating Hormone 0.19 uIU/mL (0.27-4.20)
[2023-03-25 08:00] VITALS: BP 121/54; PULSE 51; RESP 15; TEMP 36.7; O2SAT 94
[2023-03-25 08:11] LABS: Free T4 Free Thyroxine 1.13 ng/dL (0.82-1.77)
--- NOTE | 2023-03-25 08:15 | PM.PN ---
Documented by User: [email or web address] Sam 03/25/23 08:28 Subjective Subjective: Patient was evaluated this morning sitting on side of bed eating breakfast. Patient reports that she feels better overall post steroid treatment. Still concern for discharge as patient is hesitant for jail facility for further rehabilitation services, though patient is contemplating that she may need this service. States she may have a cargiver at home to care for her in the coming weeks. No other complaints at this time. Medications: Reviewed: Yes Vitals/I&O/Wt Last Vital Signs Temp 97.4 F L 03/25/23 04:00 Pulse 88 03/25/23 04:00 Resp 18 03/25/23 04:00 BP 120/63 03/25/23 04:00 Pulse Ox 95 03/25/23 04:00 O2 Del Method Room Air 03/24/23 15:55 03/24/23 03/25/23 03/25/23 22:59 06:59 14:59 Intake Total 1977 1100 / 3078 Balance 1977 / 3078 Weight last 48 hrs Weight 56.019 kg Weight 52.844 kg Weight 52.844 kg Weight 68.039 kg Physical Exam Narrative: General exam no distress, alert, pleasant Neck is supple no lymphadenopathy or megaly Cardiovascular regular rate and rhythm without murmur, S1, S2 Lungs clear to auscultation Abdomen is soft nontender Extremities no cyanosis clubbing or edema. There is no facial droop. There is no speech impairment. No deficits while sitting up. Neuro no obvious focal deficits Data 03/25/23 05:09 03/25/23 05:09 Other Labs: Hgb 10.5, HCT 31.9, BUN 23, TSH 0.19 Echo: Radiologist's impression: CONCLUSIONS Normal left ventricular size and systolic function, EF 65 %. No regional wall motion abnormalities. Mild aortic valve regurgitation. Trivial pericardial effusion. Possibly normal cardiac chamber sizes There are no intracardiac masses. No similar previous studies are available for comparison A&P Assessment and plan (1) Multiple sclerosis: Significant weakness appropriate for nursing facility placement for rehab and potential for continuing care. Improving. 1 g of Solu-Medrol to be given today (3rd dose). Continue PT/OT treatment. CBC, BMP in a.m. (2) Weakness: Global weakness and difficulty caring for ADLs according to patient. As per #1 Displays more focal weakness to right lower extremity. This a.m., patient able to sit up on side of bed without difficulty, most likely secondary to multiple sclerosis. conference services coordinator for SNF/rehabilitation placement. TSH low. T3 and T4 normal. Plan Plan as stated above. Echocardiogram results as above. conference services coordinator to work on SNF/rehabilitation placement though patient may decline as she is hesitant for placement at this time. Administer Solu-Medrol today. Full code SCDs and Lovenox for DVT prophylaxis Attestations Medical Necessity Statement*: Needs continued hospitalization for IV steroids for MS exacerbation. Coding Level of Care Code 77321 Diagnoses Multiple sclerosis G35 Weakness R53.1 Time Spent (min) 21 Documented by User: Neal Mac MD 03/25/23 08:42 Physical Exam Narrative: General exam no distress, alert, pleasant Neck is supple no lymphadenopathy or megaly Cardiovascular regular rate and rhythm without murmur, S1, S2 Lungs clear to auscultation Abdomen is soft nontender Extremities no cyanosis clubbing or edema. There is no facial droop. There is no speech impairment. No deficits while sitting up. Neuro no obvious focal deficits Back significant thoracic scoliosis noted Data 03/25/23 05:09 03/25/23 05:09 A&P Assessment and plan (1) Multiple sclerosis: Significant weakness appropriate for nursing facility placement for rehab and potential for continuing care. Improving. 1 g of Solu-Medrol to be given today (3rd dose). Continue PT/OT treatment. CBC, BMP in a.m. (2) Weakness: Diagnoses Multiple sclerosis G35 Weakness R53.1 Time Spent (min) 21
[2023-03-25] MEDS: duloxetine 30 mg Capsule PO (08:25)
[2023-03-25] MEDS: aspirin 81 mg EC Tablet PO (08:25)
[2023-03-25] MEDS: methylPREDNISolone sod succ 1,000 MG in sodium chloride 0.9% 250 ML 258 MG IV (11:55)
--- NOTE | 2023-03-25 12:21 | P.DS_ITS ---
Discharge Providers Date of Admission: 03/23/23 17:29 Date of Discharge: March 25, 2023 Attending Provider at Admission: Neal Mac MD Attending Provider at Discharge: Neal Mac MD Primary Care Provider: Dariel Gaviria MD Diagnoses at Discharge Discharge Diagnosis (1) Multiple sclerosis: Status: Acute (2) Weakness: Status: Acute Reason for Visit Reason for Visit: weakness Hospital Course Hospital Course Elizabeth is a 57-year-old white female who presented to the emergency department with severe weakness. There was concern she had an MS exacerbation. It was thought she may need to go to a nursing facility, for rehabilitation. She was given Solu-Medrol 1 g IV daily for 3 days. By the end of the third day she was ambulating much better and much stronger. Although it was thought to be best that she go to a nursing facility to help for care at home, she ultimately refused. Multiple conversations were had with the patient as well as her power of compliance attorney designee through me as well as discharge planning. She will discharge home, and have close follow-up. She was given an opportunity ask questions and agreed with the plan. Of note a head neck CTA was performed while in the hospital which demonstrated a thyroid nodule. This should be followed up as an outpatient. She also had an echocardiogram that did not show any specific concerning findings. Her TSH was slightly low but free T3 and T4 were normal. Physical Exam Narrative: General exam no distress Neck is supple Cardiovascular regular rate and rhythm Lungs clear Abdomen is soft Extremities no sinus clubbing edema Discharge Data Studies Completed and Pending Completed Studies During Hospitalization Category Date Time Status CTA head neck [CT angio headneck* [id number]] Routine Cat Scan 03/23/23 17:36 Completed XR chest 1V portable [id number] Stat Exams 03/23/23 15:42 Completed CV. echo complete* [id number] Routine Ultrasound 03/23/23 19:24 Completed Pending at discharge Category Date Time Status BMP [Basic Metabolic Panel] AM LABS Lab 03/26/23 04:00 Ordered CBC Auto Diff [Complete Blood Count w/Auto] AM LABS Lab 03/26/23 04:00 Ordered Radiology Impressions Head/Neck CTA 03/23/23 17:36 IMPRESSION: No large vessel stenosis or occlusion. IMPRESSION: 1. No occlusion or significant stenosis. 2. Hypodense right-sided thyroid nodule measures 1.5 cm. Recommend ultrasound follow-up. COMMENTS: Consistent with the [employer]'s Incidental Findings Committee white paper (J Am Julieth Radiol 2015): In patients aged 35 years and older with an incidental thyroid nodule equal to or greater than 1.[address], MRI or extrathyroidal US, further evaluation with dedicated thyroid US is recommended for patients with normal life expectancy and without comorbidities. For smaller nodules without suspicious features, no further evaluation or follow up is recommended. REFERENCES: NASCET CRITERIA. The degree of stenosis in the cervical segment of the internal carotid artery is based on NASCET criteria. Normal is no stenosis. Mild is less than 50% stenosis. Moderate is 50-69% stenosis. Severe is 70% to 99% stenosis. Total occlusion is no detectable patent lumen. Laboratory Results WBC 10.58 10^3/uL (3.29-11.43) 03/25/23 05:09 RBC 3.51 10^6/uL (3.85-5.65) L 03/25/23 05:09 Hgb 10.50 g/dL (11.27-16.99) L 03/25/23 05:09 Hct 31.9 % (36-47) L 03/25/23 05:09 MCV 90.9 fl (85-98) 03/25/23 05:09 MCH 29.9 pg (27-33) 03/25/23 05:09 MCHC 32.9 g/dL (30-55) 03/25/23 05:09 RDW 13.0 % (12.1-15.1) 03/25/23 05:09 Plt Count 242 10^3/cmm (157-399) 03/25/23 05:09 MPV 11.4 fL (7.4-10.4) H 03/25/23 05:09 Neut % (Auto) 92.2 % 03/25/23 05:09 Lymph % (Auto) 4.5 % 03/25/23 05:09 [place] % (Auto) 2.8 % 03/25/23 05:09 Eos % (Auto) 0.0 % 03/25/23 05:09 Baso % (Auto) 0.1 % 03/25/23 05:09 Neut # (Auto) 9.75 10^3/uL (1.8-7.7) H 03/25/23 05:09 Lymph # (Auto) 0.5 10^3/uL (0.8-4.8) L 03/25/23 05:09 [place] # (Auto) 0.3 10^3/uL (0.2-0.9) 03/25/23 05:09 Eos # (Auto) 0.0 10^3/uL (0.0-0.8) 03/25/23 05:09 Baso # (Auto) 0.0 10^3/uL (0.0-0.1) 03/25/23 05:09 Nucleated RBC % (auto) 0 % 03/25/23 05:09 Nucleated RBCs # 0.0 /100WBC 03/25/23 05:09 Sodium 142 mmol/L (136-145) 03/25/23 05:09 Potassium 3.6 mmol/L (3.5-5.1) 03/25/23 05:09 Chloride 109 mmol/L (98-107) H 03/25/23 05:09 Carbon Dioxide 24 mmol/L (22-29) 03/25/23 05:09 Anion Gap 12.6 (5-19) 03/25/23 05:09 BUN 23 mg/dL (6-20) H 03/25/23 05:09 Creatinine 0.5 mg/dL (0.5-0.9) 03/25/23 05:09 GFR Calculation 127.2 mL/min (90-130) 03/25/23 05:09 Glucose 147 mg/dL (65-115) H 03/25/23 05:09 Calculated Osmolality 300 mOsm/kg (285-295) H 03/25/23 05:09 Calcium 8.9 mg/dL (8.5-10.5) 03/25/23 05:09 Magnesium 2.2 mg/dL (1.7-2.3) 03/24/23 04:28 Total Bilirubin 0.8 mg/dL (0.15-1.2) 03/24/23 04:28 AST 24 U/L (0-32) 03/24/23 04:28 ALT 16 U/L (0-33) 03/24/23 04:28 Alkaline Phosphatase 71 U/L (35-105) 03/24/23 04:28 Total Protein 6.0 g/dL (6.6-8.7) L 03/24/23 04:28 Albumin 3.5 g/dL (3.5-5.2) 03/24/23 04:28 Globulin 2.5 g/dL (1.3-4.6) 03/24/23 04:28 Triglycerides 100 mg/dL (0-150) 03/23/23 15:13 Cholesterol 240 mg/dL (0-200) H 03/23/23 15:13 LDL Cholesterol, Calc 152 mg/dL (50-129) H 03/23/23 15:13 HDL Cholesterol 68 mg/dL (60-100) 03/23/23 15:13 LDL/HDL Ratio 2.24 RATIO (0.00-3.22) 03/23/23 15:13 Cholesterol/HDL Ratio 3.53 mg/dL (0.0-4.40) 03/23/23 15:13 TSH 0.19 uIU/mL (0.27-4.20) L 03/25/23 05:09 Free T4 1.13 ng/dL (0.82-1.77) 03/25/23 05:09 Free T3 2.0 PG/ML (2.0-4.4) 03/25/23 05:09 Urine Color Yellow (Yellow) 03/23/23 15:35 Urine Appearance Sl hazy (CLEAR) A 03/23/23 15:35 Urine pH 5 (5-7) 03/23/23 15:35 Ur Specific [place] 1.025 (1.005-1.030) 03/23/23 15:35 Urine Protein 1+ (Negative) H 03/23/23 15:35 Urine Glucose (UA) Norm (Normal) 03/23/23 15:35 Urine Ketones 1+ (Negative) H 03/23/23 15:35 Urine Blood 2+ (Negative) H 03/23/23 15:35 Urine Nitrate Negative (Negative) 03/23/23 15:35 Urine Bilirubin 1+ (Negative) H 03/23/23 15:35 Urine Urobilinogen 1 mg/dL (Negative) H 03/23/23 15:35 Ur Leukocyte Esterase Trace (Negative) H 03/23/23 15:35 Urine RBC 0-4 /hpf (0-2) H 03/23/23 15:35 Urine WBC None /hpf (0-5) 03/23/23 15:35 Ur Squamous Epith Cells 0-4 /hpf (0-5) H 03/23/23 15:35 Calcium Oxalate Crystal 15-25 /hpf H 03/23/23 15:35 Amorphous Sediment Not Reportable 03/23/23 15:35 Urine Bacteria Trace /hpf (NONE) 03/23/23 15:35 Urine Mucus 3+ /hpf 03/23/23 15:35 Vitals Last Vital Signs Temp 98.0 F 03/25/23 08:00 Pulse 51 L 03/25/23 08:00 Resp 15 03/25/23 08:00 BP 121/54 03/25/23 08:00 Pulse Ox 94 03/25/23 08:00 O2 Del Method Room Air 03/25/23 08:00 Discharge Plan Discharge Patient Disposition: Home Condition: Stable Prescriptions: New aspirin 81 mg Tablet,Delayed Release (Dr/Ec) 81 mg PO DAILY Qty: 30 0RF Continued dimethyl fumarate 240 mg capsule,delayed release(DR/EC) 240 mg PO BID 90 Days Qty: 180 3RF duloxetine 30 mg Capsule,Delayed Release(Dr/Ec) 30 mg PO DAILY 30 Days Qty: 30 1RF Discharge Orders: Discharge Order (Routine); Ordered 03/25/23 Ordered By: Neal Mac Referrals: Nuvia Matson MD [Physician] - 2 weeks Dariel Gaviria MD [Primary Care Provider] - 4-7 days Discharge Diet: Usual diet Discharge Activity: Increase activity as tolerated Patient Instructions: Opioid Safety Activity Restrictions/Additional Instructions: Take all medicine as prescribed Follow-up with Dr. Matson 2 weeks, your primary care provider 3 to 5 days Discharge Attestations Time Spent in Discharge Care*: greater than 30 min Quality Metrics Clinical Quality Measures [ No reported AMI, CVA or VTE this stay] Coding Level of Care Code 83044 Total time (in minutes) for Discharge: 31 Diagnoses Multiple sclerosis G35 Weakness R53.1
[2023-03-25 14:20] VITALS: BP 121/54; PULSE 51; RESP 15; TEMP 36.7; O2SAT 94
== END 2023-03-25 14:00 | disposition home health service (06) ==
LOC: ER 18:31 → MEDSURG 21:39
PROVIDERS: Admitting Provider Internal Medicine; Emergency Provider Family Medicine; PCP Family Medicine; Visit Provider Internal Medicine
DX: G35 Multiple sclerosis (principal); R53.1 Weakness; I35.1 Nonrheumatic aortic (valve) insufficiency; Z91.81 History of falling; F32.A Depression, unspecified; Z91.141 Patient's other noncompliance with medication regimen due to financial hardship
CPT/HCPCS: 36415; 51701; 70496; 70498; 71045; 80048; 80053; 80061; 81001; 83735; 84439; 84443; 84481; 85025; 93306; 96372; 96374; 97116; 97161; 97167; 97530; 99285; G0378; J1650; J2930; J7030; J7050; Q9967

== ENCOUNTER → 2023-07-08 14:50 | Outpatient (BNVA) | payer MEDICARE, MEDICAID, SELFPAY | PROVIDERS: PCP Family Medicine; Visit Provider Specialist | DX: G35 Multiple sclerosis (principal) | CPT/HCPCS: 99214; 99215 ==

== ENCOUNTER 2023-08-17 13:55 | Outpatient (CLI) | payer MEDICAID, SELFPAY ==
--- NOTE | 2023-08-17 13:59 | MM_ITS ---
WS: [id number] BILATERAL 3D TOMOSYNTHESIS DIGITAL DIAGNOSTIC MAMMOGRAPHY WITH CAD CLINICAL INFORMATION: BREAST LUMP HISTORY: LEFT breast lumps. Unable to return after prior examination. COMPARISON: 2008, 2015, and 2018. TECHNIQUE: Bilateral CC, MLO, and ML views. FINDINGS: Progressed multinodular large partially obscured masses in the LEFT breast mainly in the upper outer quadrant in the area of concern. Ultrasound is pending. These have progressed compared to the prior e xaminations. Suspicious calcifications associated with the more dense nodular mass deep to the palpab le marker anterior upper outer quadrant. Nodular lobulated masses have significantly progressed teddy red to the prior studies Ovoid nodule upper outer RIGHT breast partially obscured measuring 9 mm. Ultrasound of this area is p ending. This nodule appears relatively stable dating back to 2015. ULTRASOUND BREAST BILATERAL TECHNIQUE: Ultrasound bilateral breast focused area of concern. CLINICAL INFORMATION: BREAST LUMP FINDINGS: RIGHT BREAST: Ultrasound RIGHT breast at the 9 o'clock position 3 cm from the nipple demonstrates a c omplex cystic lesion measuring 1.3 x 0.8 x 0.7 cm. Considering mammographic stability overall over se veral years this is probably benign. LEFT BREAST: Ultrasound LEFT breast at the 3 o'clock position 2 cm from the nipple demonstrates a lar ge lobulated multiseptated complex mass with cystic and solid components. There is a retracted soft t issue component with marked increased vascularity. The cystic and solid dominant lesion measures 3.1 x 4.5 x 2.0 cm and is suspicious for neoplasm. Recommend further evaluation with ultrasound-guided bi opsy. Additional large complex cystic lesions LEFT breast with internal debris MM/[place] [id number] IMPRESSION: BI-RADS: 5-Highly Suggestive of Malignancy FOLLOW UP: US Guided Biopsy Recommended Recommend 6-month follow-up of the RIGHT breast lesion at the 9 o'clock positio n with diagnostic mammography and ultrasound. RECOMMEND ULTRASOUND-GUIDED BIOPSY OF THE LARGE LOBULATED LEFT BREAST LESION
== END 2023-08-17 13:56 | disposition home or self-care (01) ==
LOC: RAD 13:55
PROVIDERS: PCP Family Medicine; Visit Provider Family Medicine
DX: N63.11 Unspecified lump in the right breast, upper outer quadrant (principal); N63.21 Unspecified lump in the left breast, upper outer quadrant; R92.1 Mammographic calcification found on diagnostic imaging of breast
CPT/HCPCS: 76642; 77062; G0279

== ENCOUNTER 2023-09-30 13:15 | Outpatient (CLI) | payer MEDICAID, SELFPAY ==
--- NOTE | 2023-09-30 11:53 | US_ITS ---
WS: [id number] ULTRASOUND-GUIDED LEFT BREAST BIOPSY AND ASPIRATION HISTORY: L BREAST MASS COMPARISON: 08/17/2023, Procedure, risks and complications are explained to the patient. Medications are reviewed. Consent is obtained. The mass in the LEFT breast is localized with ultrasound. This is a very large cystic and solid mass. There is a large mural component with increased vascularity. Multiple cystic collections with septat ions centered at 3:00. Skin is cleansed with ChloraPrep and anesthetized with 1% buffered lidocaine. Small dermatome is made. Under sterile conditions mass is biopsied with a 14-gauge Achieve needle. Mu ltiple core biopsies are performed. Material placed in formalin and sent to pathology for review. No complications encountered. Breast tissue marker (Smarterer ultrasound enhanced ribbon): Single. Clip is placed within the mural nodul e which was biopsied. Initially aspiration of some of the fluid component was performed with an 18-gauge needle. Aspiration was performed to make the biopsy easier. The aspirate was dark red old blood. Patient left the radiology suite with no complications. Patient is instructed to return to [facility] or [facility] with any concerns. US/[place] [id number] IMPRESSION: 1. Uncomplicated core needle biopsy LEFT breast mass with cystic and solid com ponent. PATHOLOGY: Papillary neoplasm, NOS. RECOMMENDATION: Surgical excision. Please see the entire pathology report for further details concerning this cyst ic and solid neoplasm. Conservative reexcision for final classification was rec ommended.
== END 2023-09-30 13:16 | disposition home or self-care (01) ==
PROVIDERS: PCP Family Medicine; Visit Provider Physician Assistant
DX: N63.0 Unspecified lump in unspecified breast (principal); R92.8 Other abnormal and inconclusive findings on diagnostic imaging of breast
CPT/HCPCS: 19083; 88173; 88305

== ENCOUNTER → 2023-11-23 10:45 | Outpatient (BNVA) | payer MEDICAID, SELFPAY | PROVIDERS: PCP Family Medicine; Visit Provider Specialist | DX: G35 Multiple sclerosis (principal) | CPT/HCPCS: 99213 ==

== ENCOUNTER 2024-03-31 13:47 | Oncology outpatient (recurring) (ONCR) | payer MEDICARE, MEDICAID, SELFPAY ==
--- NOTE | 2024-03-31 14:32 | N.ONRAD NP_ITS ---
Radiation Oncology New Patient Visit Patient: Elizabeth Garcia MR#: [id number] : 1965 Age: 58 Sex: Female Dictated by: Dr. Sonya Nevarez Date of Service: 03/31/2024 Referring Physician(s) : Davin Diagnosis: Ductal carcinoma in situ Radiotherapy to date: Summary > No prior radiation therapy. Chief Complaint / History of Present Illness: Patient is a 58-year-old lady with disabling MS who is [facility] bound. She was found to have a mass in the left breast and subsequently had mammograms done and then a lumpectomy on January 07. It was initially felt that this might actually be benign. On the final path however it was 15 mm in size with necrosis and a cystic rupture and was DCIS. She had reexcision on February 24 secondary to positive margins and is here today to discuss postoperative treatment now that she is healed from her surgery. Current Medications: Allergies: No Known Allergies Allergy Medical History: No history of collagen vascular disease. No previous radiation therapy. Depression Multiple sclerosis Surgical History: Lumpectomy Family History: Brother Cancer Father Congestive heart failure (CHF) Social History: Smoking and tobacco/nicotine status: never used tobacco/nicotine Alcohol intake: never Current Complaints / Review of Systems: . Chief complaint has to do with her MS and is fatigue related Vital Signs: Performed on 03/31/2024 2:07 PM BMI - 20.801 kg/m2, Height - 65 in, Weight - 125 lbs, Temperature - 97.9 f, Pulse - 105 /min (high), Respiration - 18 /min, O2 Sat - 97 %, Pain - 0, Fatigue - 0 and BP - 159/ 85 mm(hg)(high/). Physical Exam: General: Patient is in no apparent distress. She is accompanied by her airport driver. HEENT: Normocephalic atraumatic. Pupils equal, sclera clear, extraocular muscles intact Skin: Patient is quite pale. Skin is warm and dry Pulmonary: Respiratory rate is regular nonlabored Cardiovascular: Regular rate and rhythm Abdomen: Patient's abdomen is fairly flat with minimal adipose tissue Extremities: No lymphedema noted in the upper extremities Neurological: Alert and orient x 3. 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 We talked about the simulation process. We reviewed the daily treatment regiment which would be once a week for 5 weeks. We discussed how we had been able to use this protocol now for the last several years with patients who qualified. We talked about the risks and side effects of the radiation both acute and long-term. This point we discussed how she does have some anxiety and encouraged her to take her anxiety medication before treatment. This point she is agreed to return for simulation and we will get her back in next week and begin her treatment shortly thereafter. Signed by: 03/31/2024 2:30:05 PM <<Signature on File>> Time spent on patient:35 CPT Code: CPT Code:
== END 2024-04-01 23:59 | disposition home or self-care (01) ==
PROVIDERS: PCP Family Medicine; Visit Provider Radiology Radiation Oncology
DX: D05.12 Intraductal carcinoma in situ of left breast (principal); G35 Multiple sclerosis; R53.83 Other fatigue
CPT/HCPCS: 99205

== ENCOUNTER 2024-04-28 10:54 | Oncology outpatient (recurring) (ONCR) | payer MEDICARE, MEDICAID, SELFPAY ==
--- NOTE | 2024-04-18 13:29 | ONCRAD TMN_ITS ---
Radiation Oncology Weekly Treatment Management Patient: Elizabeth Garcia MR#: [id number] : 1965 Attending Physician: Dr. Sonya Nevarez Date of Service: 04/14/2024 Fractions: 1 out of 5 Referring Physician(s) : Diagnosis: D05.12 - Intraductal carcinoma in situ of left breast, Diagnosed 03/31/2024 (Active) Radiotherapy to date: Course: L breast, Treatment Site: Lt Breast, Ref. ID: CTV, Energy: 6X, Dose/Fx (cGy): 570, #Fx: 1 / 5, Dose Correction (cGy): 0, Total Dose Delivered (cGy): 570, Start Date: 04/14/2024, Elapsed Days: 0 Reason for visit: The patient is being seen today as part of their regularly scheduled weekly on treatment visits to assess for acute toxicities from radiotherapy. Review of Systems: Patient had no questions or concerns today Vital Signs: Performed on 04/14/2024 3:17 PM BMI - 20.735 kg/m2, Height - 65 in, Weight - 124.6 lbs, Temperature - 97.8 f, Pulse - 77 /min, Respiration - 18 /min, O2 Sat - 100 %, Pain - 0, Fatigue - 0 and BP - 150/ 80 mm(hg)(high/). Physical Exam: No changes on exam Imaging: Radiation therapy imaging related to accurate target localization (i.e. KV, MV and CBCT) was reviewed. Appropriate changes, if any, were made to ensure treatment accuracy. Plan: Will continue with treatments as planned Signed by: Dr. Sonya Nevarez 04/18/2024 1:27:37 PM
--- NOTE | 2024-04-21 11:43 | ONCRAD TMN_ITS ---
Radiation Oncology Weekly Treatment Management Patient: Jose Johnson MR#: [id number] : 1965> Attending Physician: Dr. Sonya Nevarez Date of Service: 04/21/2024 Fractions: 2 out of 5 Referring Physician(s) : Diagnosis: D05.12 - Intraductal carcinoma in situ of left breast, Diagnosed 03/31/2024 (Active) Radiotherapy to date: Course: L breast, Treatment Site: Lt Breast, Ref. ID: CTV, Energy: 6X, Dose/Fx (cGy): 570, #Fx: 2 / 5, Dose Correction (cGy): 0, Total Dose Delivered (cGy): 1,140, Start Date: 04/14/2024, End Date: 04/21/2024, Elapsed Days: 7 Reason for visit: The patient is being seen today as part of their regularly scheduled weekly on treatment visits to assess for acute toxicities from radiotherapy. Review of Systems: Patient denies any issues. Vital Signs: Physical Exam: On exam her breast is just mildly erythematous Imaging: Radiation therapy imaging related to accurate target localization (i.e. KV, MV and CBCT) was reviewed. Appropriate changes, if any, were made to ensure treatment accuracy. Plan: Will continue with her treatments as planned Signed by: Dr. Sonya Nevarez 04/21/2024 11:43:02 AM
--- NOTE | 2024-04-28 11:25 | ONCRAD TMN_ITS ---
Radiation Oncology Weekly Treatment Management Patient: Elizabeth Garcia MR#: [id number] : 1965 Attending Physician: Arturo Carbajal Date of Service: 04/28/2024 Referring Physician(s) : Diagnosis: D05.12 - Intraductal carcinoma in situ of left breast, Diagnosed 03/31/2024 (Active) Radiotherapy to date: Course: L breast, Treatment Site: Lt Breast, Ref. ID: CTV, Energy: 6X, Dose/Fx (cGy): 570, #Fx: 3 / 5, Dose Correction (cGy): 0, Total Dose Delivered (cGy): 1,710, Start Date: 04/14/2024, Elapsed Days: 14 Reason for visit: The patient is being seen today as part of their regularly scheduled weekly on treatment visits to assess for acute toxicities from radiotherapy. Review of Systems: Patient seen after her third of 5 fractions today. Skin shows no real erythema. No skin breakdown. Vital Signs: Performed on 04/28/2024 11:17 AM BMI - 20.169 kg/m2, Height - 65 in, Weight - 121.2 lbs, Temperature - 97.5 f, Pulse - 82 /min, Respiration - 16 /min, O2 Sat - 99 %, Pain - 0, Fatigue - 0 and BP - 133/ 79 mm(hg). Physical Exam: Alert and oriented and answers questions appropriately. No skin breakdown no erythema. Imaging: Radiation therapy imaging related to accurate target localization (i.e. KV, MV and CBCT) was reviewed. Appropriate changes, if any, were made to ensure treatment accuracy. Plan: Continue XRT Continue creams Signed by: Arturo Carbajal 04/28/2024 11:24:42 AM
== END 2024-04-29 23:59 | disposition home or self-care (01) ==
PROVIDERS: PCP Family Medicine; Visit Provider Radiology Radiation Oncology
DX: Z51.0 Encounter for antineoplastic radiation therapy (principal); D05.12 Intraductal carcinoma in situ of left breast
CPT/HCPCS: 77280; 77295; 77300; 77334; 77387; 77412; 99024

== ENCOUNTER 2024-05-12 10:58 | Oncology outpatient (recurring) (ONCR) | payer MEDICARE, MEDICAID, SELFPAY ==
--- NOTE | 2024-05-05 11:38 | ONCRAD TMN_ITS ---
Radiation Oncology Weekly Treatment Management Patient: Elizabeth Garcia MR#: [id number] : 1965 Attending Physician: Arturo Carbajal Date of Service: 05/05/2024 Referring Physician(s) : Diagnosis: D05.12 - Intraductal carcinoma in situ of left breast, Diagnosed 03/31/2024 (Active) Radiotherapy to date: Course: L breast, Treatment Site: Lt Breast, Ref. ID: CTV, Energy: 6X, Dose/Fx (cGy): 570, #Fx: 4 / 5, Dose Correction (cGy): 0, Total Dose Delivered (cGy): 2,280, Start Date: 04/14/2024, Elapsed Days: 21 Reason for visit: The patient is being seen today as part of their regularly scheduled weekly on treatment visits to assess for acute toxicities from radiotherapy. Review of Systems: Patient now has completed 4 out of 5 fractions to the LEFT BREAST. She denies any problems. Skin is well-healed and no erythema. Vital Signs: Performed on 05/05/2024 10:49 AM BMI - 20.402 kg/m2, Height - 65 in, Weight - 122.6 lbs, Temperature - 97.5 f, Pulse - 90 /min, Respiration - 18 /min, O2 Sat - 99 %, Pain - 0, Fatigue - 0 and BP - 112/ 66 mm(hg). Physical Exam: Alert and oriented and answers questions appropriately. Skin is intact. Imaging: Radiation therapy imaging related to accurate target localization (i.e. KV, MV and CBCT) was reviewed. Appropriate changes, if any, were made to ensure treatment accuracy. Plan: Continue XRT Patient will complete her fifth and final fraction next week Aquaphor creams recommended. Signed by: Arturo Carbajal 05/05/2024 11:37:35 AM
--- NOTE | 2024-05-13 08:39 | N.ONRD TS_ITS ---
Radiation Oncology Treatment Summary/ Treatment Management Patient: Jose>Elizabeth> MR#: [id number] : 1965> Age: 58> Sex: Female Dictated by: Dr. Sonya Nevarez Date of Service: 05/12/2024 Referring Physician(s) : Diagnosis: D05.12 - Intraductal carcinoma in situ of left breast, Diagnosed 03/31/2024 (Active) Radiotherapy to Date: Course: L breast, Treatment Site: Lt Breast, Ref. ID: CTV, Energy: 6X, Dose/Fx (cGy): 570, #Fx: 5 / 5, Dose Correction (cGy): 0, Total Dose Delivered (cGy): 2,850, Start Date: 04/14/2024, End Date: 05/12/2024, Elapsed Days: 28 Clinical Summary: The patient tolerated RT well. She had minimal skin disease in her skin. She had no fatigue. Plan: End of treatment today. Continue on the above medication until the skin reaction resolves. Follow up in one month. Signed by: Dr. Sonya Nevarez>05/13/2024 8:37:11 AM <<Signature on File>>
== END 2024-05-30 23:59 | disposition home or self-care (01) ==
PROVIDERS: PCP Family Medicine; Visit Provider Radiology Radiation Oncology
DX: Z51.0 Encounter for antineoplastic radiation therapy (principal); D05.12 Intraductal carcinoma in situ of left breast
CPT/HCPCS: 77336; 77387; 77412; 99024

== ENCOUNTER → 2024-05-17 11:07 | Outpatient (BNVA) | payer MEDICARE, MEDICAID, SELFPAY | PROVIDERS: PCP Family Medicine; Visit Provider Specialist | DX: G35 Multiple sclerosis (principal) | CPT/HCPCS: 99213 ==

== ENCOUNTER 2024-08-17 10:26 | Outpatient (CLI) | payer MEDICARE, MEDICAID, SELFPAY ==
--- NOTE | 2024-08-17 10:45 | MM_ITS ---
WS: [id number] VIEWS: MLO, CC, and ML views both breasts. 3D digital tomosynthesis is also included in this exam. Comparison made with prior exam of 05/11/2007, 06/24/2007, 09/26/2015, 06/23/2018, 08/17/2023.. Findings: The breasts are heterogeneously dense, which may obscure small masses. Stable appearing nodular densities in the RIGHT breast. Postoperative change in the LEFT breast. No suspicious mass, tumor calcification or architectural distortion noted in either breast. MM/MM diag BI tomosynthesis [id number] Impression: BI-RADS: 2 - Benign FOLLOW-UP: 1 Year Follow-up This mammogram was also analyzed by the Computer Aided Detection System R2 Imag e Senior Linux Administrator.
== END 2024-08-17 10:27 | disposition home or self-care (01) ==
PROVIDERS: PCP Family Medicine; Visit Provider Radiology Radiation Oncology
DX: R92.333 Mammographic heterogeneous density, bilateral breasts (principal); N63.10 Unspecified lump in the right breast, unspecified quadrant
CPT/HCPCS: 77062; G0279

== ENCOUNTER 2024-08-24 11:30 | Inpatient (IN) | payer MEDICARE, MEDICAID, SELFPAY ==
[2024-08-24 11:35] VITALS: BP 138/53; PULSE 119; RESP 20; TEMP 38.2; O2SAT 96
--- NOTE | 2024-08-24 11:39 | XR_ITS ---
WS: [id number] Exam: XR chest 1V portable [id number] Date/Time of Exam: 08/24/2024 11:39 AM Reason For Exam: Weakness Comparison 03/23/2023. Lungs are fully expanded and clear. Normal cardiomediastinal silhouette. No pleural effusions. Bony structures are intact. Surgical clips are seen in the LEFT lower lung zone. XR/XR chest 1V portable [id number] IMPRESSION: 1. No acute cardiopulmonary finding.
[2024-08-24 11:47] LABS: Basophils % 0.2 %; Hematocrit 39.3 % (36-47); Lymphocytes # 0.7 10^3/uL (0.8-4.8); Lymphocytes % 4.4 %; Mean Corpuscular HGB Conc 33.6 g/dL (30-55); Mean Corpuscular Hemoglobin 29.8 pg (27-33); Mean Corpuscular Volume 88.7 fl (85-98); Mean Platelet Volume 10.6 fL (7.4-10.4); Monocytes # 1.2 10^3/uL (0.2-0.9); Monocytes % 8.1 %; Neutrophils # 12.94 10^3/uL (1.8-7.7); Neutrophils % 86.8 %; Nucleated Red Blood Cells % 0 %; Platelet Count 265 10^3/cmm (157-399); Red Blood Count 4.43 10^6/uL (3.85-5.65); Red Cell Distribution Width 12.6 % (12.1-15.1); White Blood Count 14.89 10^3/uL (3.29-11.43)
--- NOTE | 2024-08-24 11:57 | ED_ITS ---
HPI - Fever 2 General: Chief Complaint: Fever Stated Complaint: AMS Time Seen by Provider: 08/24/24 11:34 History of Present Illness: 59-year-old female with a history of mil d dementia who presents by ambulance from custodial with fever, tachycardia and altered mental status. Reports of a temp of 102 at the custodial. She is 100.8 on presentation here with a heart rate of 119. Blood pressure is normal. She can tell me her name, the date and her birthday. She has no specific complaints at this time. No cough. No chest pain. No abdominal pain. No nausea. Related Data Home Medications ?Medication ?Instructions ?Recorded ?Confirmed linaclotide 72 mcg capsule 72 mcg PO DAILY PRN Constip ation 05/17/24 08/24/24 (Linzess) trazodone 50 mg tablet 25 mg PO BEDTIME 05/17/24 acetaminophen 325 mg tablet 650 mg PO Q6H PRN pain/inc reased 08/24/24 08/24/24 temp [id number] 400 unit See Rx Instructions .Ro [place] .COMPLEX 08/24/24 08/24/24 tablet (Beano) bisacodyl 10 mg rectal suppository 10 mg IN DAILY PRN Constipation 08/24/24 08/24/24 (Dulcolax (bisacodyl)) bisacodyl 5 mg tablet,delayed 10 mg PO DAILY PRN Const ipation 08/24/24 08/24/24 release (Dulcolax (bisacodyl)) dimethyl fumarate 240 mg 240 mg PO BID 08/24/2408/24 capsule,delayed release (Tecfidera) duloxetine 60 mg capsule,delayed 60 mg PO DAILY 08/24/24 release magnesium hydroxide 400 mg/5 mL 30 ml PO DAILY PRN Con stipation 08/24/24 08/24/24 oral suspension (Milk of Magnesia) simethicone 125 mg chewable tablet 250 mg PO QID PRN G astric Reflux 08/24/24 08/24/24 (Gas Relief Extra Strength) sodium phosphates 19 gram-7 118 ml IN DAILY PRN Consti pation 08/24/24 08/24/24 gram/118 mL enema (Fleet Enema) Allergies Allergy/AdvReac Type Severity Reaction Status Date / Time No Known Allergies Allergy Verified 05/17/24 11:39 Review of Systems 2 Narrative: Constitutional symptoms: Negative except as documented in HPI. Skin symptoms: Negative except as documented in HPI. Eye symptoms: Negative except as documented in HPI. ENMT symptoms: Negative except as documented in HPI. Respiratory symptoms: Negative except as documented in HPI. Cardiovascular symptoms: Negative except as documented in HPI. Gastrointestinal symptoms: Negative except as documented in HPI. Genitourinary symptoms: Negative except as documented in HPI. Musculoskeletal symptoms: Negative except as documented in HPI. Neurologic symptoms: Negative except as documented in HPI. Psychiatric symptoms: Negative except as documented in HPI. Endocrine symptoms: Negative except as documented in HPI. PFSH ED 2 PFSH: Medical History Depression Multiple sclerosis Family History Brother Cancer Father Congestive heart failure (CHF) Social History Smoking and tobacco/nicotine status: never used tobacco/nicotine Alcohol intake: never Physical Exam 2 Narrative: EXAM NARRATIVE: General: Alert, no acute distress. Skin: Warm, dry. Head: Normocephalic, atraumatic. Neck: Supple, trachea midline. Eye: Extraocular movements are intact. Ears, nose, mouth and throat: mucosa moist. Cardiovascular: Regular, Normal peripheral perfusion. Respiratory: Lungs are clear to auscultation, respirations are non-labored, breath sounds are equal, Symmetrical chest wall expansion. Gastrointestinal: Soft, Nontender, Non distended Musculoskeletal: Normal ROM, no deformity. Neurological: Alert and oriented, No focal neurological deficit observed. Psychiatric: Cooperative, appropriate mood & affect. Course 2 Vital Signs: Vital signs: Vital Signs Temperature 98.7 F 08/24/24 14:05 Pulse Rate 100 08/24/24 12:50 Respiratory Rate 20 H 08/24/24 11:35 Blood Pressure 138/53 08/24/24 11:35 Pulse Oximetry 96 08/24/24 12:50 Oxygen Delivery Me thod Room Air 08/24/24 11:35 MDM - Fever Medical Decision Making Medical decision making: Differential diagnosis including but not limited to and based on the above HPI, review of systems and physical exam: In this patient with altered mental status: Stroke. Hypoglycemia. Metabolic encephalopathy. Infections such as pneumonia, urinary tract infection, Covid-19, Influenza. Electrolyte abnormalities such as hypernatremia. Renal failure / uremia. Hepatic encephalopathy. Hypoxemia. Hypercapnic respiratory failure. Psychosis. Drug or alcohol intoxication. Medication overdose. Orders placed to evaluate differential diagnosis based on the above differential, HPI and physical exam Chest x-ray: No acute process. No infiltrate. No pneumothorax. This was reviewed and interpreted by myself the emergency room physician. I also reviewed the radiology report. Lab Review: Laboratory results were reviewed and interpreted by myself the emergency room physician. Patient does have some leukocytosis with a white count of 15,000. Left shift at 87%. No anemia. CT of the abdomen pelvis with contrast: Decreased multifocal enhancement of the left kidney most consistent with pyelonephritis. No abscess. No renal obstructions. This was reviewed and interpreted by myself the emergency room physician. I also reviewed the radiology report. I reviewed the patient's medical record. Reexamination: Patient has remained fairly stable. Heart rate is improved to around 100 with fluids. Also with fever control. Still with no altered mental status or focal motor deficits. No increased work of breathing. Consultation: I spoke with Dr. Henley who is on-call for the hospital service who agrees to admission. Assessment and plan: Urinary tract infection Pyelonephritis Possible early sepsis/SIRS ?Acetaminophen for fever. -1.5 L normal saline bolus. 30 mL/kg based on patient's body weight - Rocephin administered. -Sepsis quality measures. -Lactic acid with a reflex was ordered. -Blood cultures were ordered. -I discussed the patient with the hospitalist on-call who is admitting the patient. - Discussed findings and plan with patient. Answered any questions. - All laboratory values were reviewed and interpreted personally by myself, the ER physician - All imaging was reviewed and interpreted personally by myself, the ER physician. - Evaluation and treatment of this problem were appropriate in the emergency setting Critical care -I spent a total of >35 minutes of critical care time managing the patient, independent of any other practitioner. -The time involved in the performance of separately reportable procedures was not counted towards critical care time. Lab Data 08/24/24 11:15 08/24/24 11:15 Radiology Impressions Chest X-Ray 08/24/24 11:39 IMPRESSION: 1. No acute cardiopulmonary finding. Abdomen/Pelvis CT 08/24/24 13:10 IMPRESSION: 1. Decreased, multifocal enhancement LEFT kidney. Most consistent with acute pyelonephritis. No abscess is evident. Differential would include ischemic changes. 2. No renal obstruction. 3. Normal appendix. 4. Increased air within the colon. 5. Marked fecal retention at the rectum. Laboratory Results WBC 14.89 10^3/uL (3.29-11.43) H 08/24/24 11:15 RBC 4.43 10^6/uL (3.85-5.65) 08/24/24 11:15 Hgb 13.20 g/dL (11.27-16.99) 08/24/24 11:15 Hct 39.3 % (36-47) 08/24/24 11:15 MCV 88.7 fl (85-98) 08/24/24 11:15 MCH 29.8 pg (27-33) 08/24/24 11:15 MCHC 33.6 g/dL (30-55) 08/24/24 11:15 RDW 12.6 % (12.1-15.1) 08/24/24 11:15 Plt Count 265 10^3/cmm (157-399) 08/24/24 11:15 MPV 10.6 fL (7.4-10.4) H 08/24/24 11:15 Neut % (Auto) 86.8 % 08/24/24 11:15 Lymph % (Auto) 4.4 % 08/24/24 11:15 [place] % (Auto) 8.1 % 08/24/24 11:15 Eos % (Auto) 0.0 % 08/24/24 11:15 Baso % (Auto) 0.2 % 08/24/24 11:15 Neut # (Auto) 12.94 10^3/uL (1.8-7.7) H 08/24/24 11:15 Lymph # (Auto) 0.7 10^3/uL (0.8-4.8) L 08/24/24 11:15 [place] # (Auto) 1.2 10^3/uL (0.2-0.9) H 08/24/24 11:15 Eos # (Auto) 0.0 10^3/uL (0.0-0.8) 08/24/24 11:15 Baso # (Auto) 0.0 10^3/uL (0.0-0.1) 08/24/24 11:15 Nucleated RBC % (auto) 0 % 08/24/24 11:15 Nucleated RBCs # 0.0 /100WBC 08/24/24 11:15 Sodium 137 mmol/L (136-145) 08/24/24 11:15 Potassium 3.2 mmol/L (3.5-5.1) L 08/24/24 11:15 Chloride 96 mmol/L (98-107) L 08/24/24 11:15 Carbon Dioxide 22 mmol/L (22-29) 08/24/24 11:15 Anion Gap 22.2 (5-19) H 08/24/24 11:15 BUN 12 mg/dL (6-20) 08/24/24 11:15 Creatinine 0.7 mg/dL (0.5-0.9) 08/24/24 11:15 GFR Calculation 85.6 mL/min (90-130) L 08/24/24 11:15 Glucose 149 mg/dL (65-115) H 08/24/24 11:15 Calculated Osmolality 287 mOsm/kg (285-295) 08/24/24 11:15 Lactic Acid 1.2 mmol/L (0.5-2.2) 08/24/24 11:15 Calcium 9.3 mg/dL (8.5-10.5) 08/24/24 11:15 Total Bilirubin 0.7 mg/dL (0.15-1.2) 08/24/24 11:15 AST 16 U/L (0-32) 08/24/24 11:15 ALT 12 U/L (0-33) 08/24/24 11:15 Alkaline Phosphatase 107 U/L (35-105) H 08/24/24 11:15 C-Reactive Protein 209.5 mg/L (0.0-4.9) H 08/24/24 11:15 Total Protein 7.5 g/dL (6.6-8.7) 08/24/24 11:15 Albumin 3.9 g/dL (3.5-5.2) 08/24/24 11:15 Globulin 3.6 g/dL (1.3-4.6) 08/24/24 11:15 Procalcitonin 0.73 ng/mL (0-0.5) H 08/24/24 11:15 Urine Color Yellow (Yellow) 08/24/24 12:03 Urine Appearance Cloudy (CLEAR) A 08/24/24 12:03 Urine pH 6.5 (5-7) 08/24/24 12:03 Ur Specific [place] 1.011 (1.005-1.030) 08/24/24 12:03 Urine Protein 2+ (Negative) A 08/24/24 12:03 Urine Glucose (UA) Negative (Normal) 08/24/24 12:03 Urine Ketones 1+ (Negative) H 08/24/24 12:03 Urine Blood 3+ (Negative) A 08/24/24 12:03 Urine Nitrate Negative (Negative) 08/24/24 12:03 Urine Bilirubin Negative (Negative) 08/24/24 12:03 Urine Urobilinogen 2.0 mg/dL (Negative) H 08/24/24 12:03 Ur Leukocyte Esterase 3+ (Negative) A 08/24/24 12:03 Urine RBC >100 /hpf (0-2) H 08/24/24 12:03 Urine WBC >100 /hpf (0-5) H 08/24/24 12:03 Ur Squamous Epith Cells 0-5 /hpf (0-5) 08/24/24 12:03 Amorphous Sediment Not Reportable 08/24/24 12:03 Urine Bacteria None seen /hpf (NONE) 08/24/24 12:03 Hyaline Casts 4.52 /lpf 08/24/24 12:03 Ur Oval Fat Bodies 1+ /hpf 08/24/24 12:03 All radiology interpretation(s) finalized by discharge Discharge Plan Discharge Patient Disposition: Admitted As Inpatient Clinical Impression: UTI (urinary tract infection), Pyelonephritis Condition: Stable Coding Level of Care Code ED Station Inspector for Jesus De Luna
--- OUTSIDE RECORDS SUMMARY | 2024-08-24 12:09 | XMS_ITS | Continuity of Care Document ---
Author Organization [facility] ([facility]) Address [address] [place] [id number] Problems Condition ICD9 code ICD10 code SNOMED code Start Date End Date S tatus Multiple sclerosis G35 07/16/2023 Ac tive Unspecified dementia, moderate, with mood disturbance F03.B3 07/16/2023 Active Unspecified abnormalities of gait and mobility R26.9 11/24/2023 Acti ve Depression, unspecified F32.A 07/16/2023 Active Neuromuscular dysfunction of bladder, unspecified N31.9 07/16/2023 A ctive Neurogenic bowel, not elsewhere classified K59.2 07/16/2023 Acti ve Insomnia, unspecified G47.00 09/11/2023 Active long term acute care registered nurse (current) use of aspirin Z79.82 07/16/2023 Active Unspecified lump in the left breast, unspecified quadrant N63.20 08/26/2023 Active Unvaccinated for COVID-19 Z28.310 07/16/2023 Active 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 01/27/2024 Activ e Other custodial (current) drug therapy Z79.899 04/21/2024 Active Cognitive communication deficit R41.841 07/04/2024 Active Results Test Value / Unit Interpretation Reference Ran ge COVID-19 Test Viral Antigen null flavor [null] See note NEG COVID-19 Test Viral Antigen COVID-19 Test Viral Antigen null flavor [null] See note NEG COVID-19 Test Viral Antigen COVID-19 Test Viral Antigen null flavor [null] See note NEG COVID-19 Test Viral Antigen COVID-19 Test Viral Antigen null flavor [null] See note NEG COVID-19 Test Viral Antigen COVID-19 Test Viral Antigen null flavor [null] See note NEG COVID-19 Test Viral Antigen COVID-19 Test Viral Antigen null flavor [null] See note NEG COVID-19 Test Viral Antigen Allergies, adverse reactions, alerts No known allergies and adverse reactions Immunizations Vaccine Route Date Status COVID-19 Vaccine Unassigned Route of Administration Completed Influenza Vaccine Unassigned Route of Administration 1 Completed Pneumococcal Vaccine Unassigned Route of Administratio n 07/17/2023 Completed Medications Medication Instructions Route Dosage Frequency Start Date Stop Date Indications Status Beano (bkpbu-y-rczyu tosidase) 400 unit tablet (Beano (zglav-r-xgpnk tosidase)) 2, oral, With Meals oral 1.0 Active dimethyl fumarate 240 mg capsule,delaye d release(DR/EC) (dimethyl fumarate) 1, oral, Twice A Day oral 1.0 12.0 h Active Dulcolax (bisacodyl) (bisacodyl) 5 mg tablet,delayed release (DR/EC) (Dulcolax (bisacodyl) (bisacodyl)) 2 tabs/10mg, oral, Once A Day - PRN, Give if no results from MOM oral 1.0 1.0 d Active Dulcolax (bisacodyl) (bisacodyl) 10 mg suppository (Dulcolax (bisacodyl) (bisacodyl)) 1 suppository, rectal, Once A Day - PRN, Give rectally if can't take p/o, if no results from MOM rectal 1.0 1.0 d 024 Active duloxetine 30 mg capsule,delaye d release(DR/EC) (duloxetine) 1, oral, Once A Day oral 1.0 1.0 d 024 Active Fleet Enema (sodium phosphates) 19-7 gram/118 mL enema (Fleet Enema (sodium phosphates)) 1 application, rectal, Once A Day - PRN, Give fleets if no results from MOM and Dulcolax rectal 1.0 1.0 d 024 Active Gas Relief Extra Strength (simethicone) 125 mg tablet,chewabl e (Gas Relief Extra Strength (simethicone)) 2 tab, oral, Four Times A Day - PRN, Clinical Indication: Gas oral 1.0 6.0 h Active Linzess (linaclotide) 72 mcg capsule (Linzess (linaclotide)) 1, oral, Once A Day - PRN, Clinical Indication: Constipation oral 1.0 1.0 d Active Milk of Magnesia (magnesium hydroxide) 400 mg/5 mL suspension (Milk of Magnesia (magnesium hydroxide)) 30 ml, oral, Every 72 Hours - PRN, if no BM in 3 daysDO NOT GIVE TO RENAL PATIENTS--GO TO DULCOLAX ORDERS oral 1.0 72.0 h Active trazodone 50 mg tablet (trazodone) 03/03 tab = 25mg, oral, At Bedtime, clinical indication: insomnia oral 1.0 Active Tylenol (acetaminophen ) 325 mg tablet (Tylenol (acetaminophen )) 2 tabs/650mg, oral, Every 6 Hours - PRN, as needed for PRN pain/increased tempMay give rectally if necessary oral 1.0 6.0 h Active aspirin 81 mg tablet,delayed release (DR/EC) (aspirin) 1, oral, Once A Day oral 1.0 1.0 d 024 2023 Active hydrocodone-ac etaminophen 5-325 mg tablet (hydrocodone-a cetaminophen) 1 Tab, oral, Every 6 Hours - PRN, Clinical Indication: Pain oral 1.0 6.0 h 024 2023 Active aspirin 81 mg tablet,delayed release (DR/EC) (aspirin) 1 tab, oral, Once A Day oral 1.0 1.0 d 024 2023 Active aspirin 81 mg tablet,delayed release (DR/EC) (aspirin) 1 tab, oral, Once A Day oral 1.0 1.0 d 024 2023 Active hydrocodone-ac etaminophen 5-325 mg tablet (hydrocodone-a cetaminophen) 1, oral, Other, 1 Tab q6 hr x2 weeks PRN pain after biopsy oral 1.0 024 2024 Active lorazepam 0.5 mg tablet (lorazepam) 1-2, oral, Once - One Time, give lorazepam 0.5mg one tab prior to leaving for surgery send second tab with to take prior to starting surgery on oral 1.0 024 2023 Active lorazepam 0.5 mg tablet (lorazepam) 1-2, oral, Once - One Time, give lorazepam 0.5mg one tab prior to leaving for surgery send second tab with to take prior to starting surgery on oral 1.0 024 2024 Active lorazepam 0.5 mg tablet (lorazepam) 1-2, oral, Once - One Time - PRN, give lorazepam 0.5mg one tab prior to leaving for surgery send second tab with to take prior to starting surgery on 03/17/24 oral 1.0 025 2024 Active lorazepam 0.5 mg tablet (lorazepam) 1-2, oral, Once - One Time - PRN, give lorazepam 0.5mg one tab prior to leaving for surgery send second tab with to take prior to starting surgery on oral 1.0 025 2024 Active Vital Signs Date Vital Result Comment 02/03/2024 05:11 PM Body Weight 121 [lb_av] Body Mass Index 20.13 kg/m2 02/03/2024 10:10 AM Temperature 99 [degF] Oxygen Saturation 98 % Respiratory Rate 17 /min Heart Rate 106 /min Blood Pressure Systolic 124 mm[Hg] Blood Pressure Diastolic 79 mm[Hg] 02/03/2024 08:42 AM Body Weight 122.6 [lb_av] Body Mass Index 20.4 kg/m2 01/31/2024 06:16 PM Body Weight 121.9 [lb_av] Body Mass Index 20.28 kg/m2 01/27/2024 09:42 AM Temperature 97.7 [degF] Oxygen Saturation 100 % Respiratory Rate 15 /min Heart Rate 86 /min Blood Pressure Systolic 124 mm[Hg] Blood Pressure Diastolic 80 mm[Hg] Body Weight 121.4 [lb_av] Body Mass Index 20.2 kg/m2 01/26/2024 06:31 PM Temperature 98 [degF] 01/26/2024 09:14 AM Temperature 97.6 [degF] 01/20/2024 09:15 AM Temperature 98.3 [degF] Oxygen Saturation 97 % Respiratory Rate 16 /min Heart Rate 67 /min Blood Pressure Systolic 129 mm[Hg] Blood Pressure Diastolic 65 mm[Hg] Body Weight 122.5 [lb_av] Body Mass Index 20.38 kg/m2 01/13/2024 11:24 AM Temperature 97.8 [degF] Oxygen Saturation 99 % Respiratory Rate 15 /min Heart Rate 70 /min Blood Pressure Systolic 122 mm[Hg] Blood Pressure Diastolic 67 mm[Hg] Body Weight 123.8 [lb_av] Body Mass Index 20.6 kg/m2 01/06/2024 10:30 AM Body Weight 121.6 [lb_av] Body Mass Index 20.23 kg/m2 01/06/2024 10:29 AM Temperature 98 [degF] Oxygen Saturation 95 % Respiratory Rate 16 /min Heart Rate 79 /min Blood Pressure Systolic 130 mm[Hg] Blood Pressure Diastolic 76 mm[Hg] 01/01/2024 12:30 PM Body Weight 122.6 [lb_av] Body Mass Index 20.4 kg/m2 12/31/2023 07:46 PM Temperature 98.4 [degF] 12/30/2023 07:41 PM Temperature 98.6 [degF] 12/30/2023 02:35 PM Body Weight 122.8 [lb_av] Body Mass Index 20.43 kg/m2 12/30/2023 11:13 AM Temperature 98 [degF] Oxygen Saturation 98 % Respiratory Rate 16 /min Heart Rate 88 /min Blood Pressure Systolic 137 mm[Hg] Blood Pressure Diastolic 81 mm[Hg] 12/23/2023 10:42 AM Body Weight 124.8 [lb_av] Body Mass Index 20.77 kg/m2 12/23/2023 07:51 AM Oxygen Saturation 100 % Respiratory Rate 18 /min Heart Rate 96 /min Blood Pressure Systolic 120 mm[Hg] Blood Pressure Diastolic 80 mm[Hg] 12/16/2023 10:43 AM Body Weight 123.4 [lb_av] Body Mass Index 20.53 kg/m2 12/16/2023 09:38 AM Oxygen Saturation 93 % Respiratory Rate 18 /min Heart Rate 103 /min Blood Pressure Systolic 129 mm[Hg] Blood Pressure Diastolic 82 mm[Hg] 12/10/2023 09:12 PM Oxygen Saturation 98 % Respiratory Rate 16 /min Heart Rate 92 /min 12/09/2023 12:41 PM Oxygen Saturation 97 % Respiratory Rate 20 /min Heart Rate 94 /min Blood Pressure Systolic 125 mm[Hg] Blood Pressure Diastolic 76 mm[Hg] 12/09/2023 10:22 AM Body Weight 123 [lb_av] Body Mass Index 20.47 kg/m2 12/02/2023 11:22 AM Body Weight 122.2 [lb_av] Body Mass Index 20.33 kg/m2 12/02/2023 08:15 AM Blood Pressure Systolic 139 mm[Hg] Blood Pressure Diastolic 84 mm[Hg] 12/01/2023 10:52 AM Body Weight 121.4 [lb_av] Body Mass Index 20.2 kg/m2 11/25/2023 08:06 AM Body Weight 121 [lb_av] Body Mass Index 20.13 kg/m2 11/18/2023 08:28 AM Body Weight 121 [lb_av] Body Mass Index 20.13 kg/m2 07/29/2023 02:23 PM Body Height 65 [in_us] 02/17/2024 11:01 AM Temperature 98 [degF] Oxygen Saturation 99 % Respiratory Rate 17 /min Heart Rate 97 /min Blood Pressure Systolic 120 mm[Hg] Blood Pressure Diastolic 80 mm[Hg] 02/24/2024 08:30 AM Temperature 98.6 [degF] Oxygen Saturation 99 % Respiratory Rate 16 /min Heart Rate 113 /min Blood Pressure Systolic 137 mm[Hg] Blood Pressure Diastolic 77 mm[Hg] 03/02/2024 02:27 PM Temperature 98.8 [degF] Oxygen Saturation 98 % Respiratory Rate 18 /min Heart Rate 91 /min Blood Pressure Systolic 102 mm[Hg] Blood Pressure Diastolic 56 mm[Hg] 03/02/2024 12:35 PM Body Weight 122.2 [lb_av] Body Mass Index 20.33 kg/m2 03/09/2024 09:37 AM Temperature 97.5 [degF] Oxygen Saturation 97 % Respiratory Rate 16 /min Heart Rate 90 /min Blood Pressure Systolic 132 mm[Hg] Blood Pressure Diastolic 71 mm[Hg] 03/16/2024 09:33 AM Temperature 97.4 [degF] Oxygen Saturation 100 % Respiratory Rate 14 /min Heart Rate 86 /min Blood Pressure Systolic 106 mm[Hg] Blood Pressure Diastolic 79 mm[Hg] 03/23/2024 08:35 AM Temperature 99.7 [degF] Oxygen Saturation 97 % Respiratory Rate 18 /min Heart Rate 80 /min Blood Pressure Systolic 144 mm[Hg] Blood Pressure Diastolic 82 mm[Hg] 03/30/2024 02:31 PM Temperature 98.7 [degF] Oxygen Saturation 92 % Respiratory Rate 17 /min Heart Rate 93 /min Blood Pressure Systolic 136 mm[Hg] Blood Pressure Diastolic 77 mm[Hg] 04/02/2024 02:28 PM Body Weight 117.8 [lb_av] Body Mass Index 19.6 kg/m2 04/05/2024 12:42 PM Body Weight 123 [lb_av] Body Mass Index 20.47 kg/m2 04/06/2024 05:08 PM Oxygen Saturation 98 % Respiratory Rate 18 /min Blood Pressure Systolic 114 mm[Hg] Blood Pressure Diastolic 66 mm[Hg] 04/06/2024 05:07 PM Temperature 98.3 [degF] Heart Rate 96 /min Body Weight 123 [lb_av] Body Mass Index 20.47 kg/m2 04/07/2024 03:37 PM Body Weight 122 [lb_av] Body Mass Index 20.3 kg/m2 04/08/2024 05:37 PM Body Weight 122.8 [lb_av] Body Mass Index 20.43 kg/m2 04/13/2024 11:15 AM Body Weight 127 [lb_av] Body Mass Index 21.13 kg/m2 04/13/2024 08:45 AM Temperature 97 [degF] Oxygen Saturation 90 % Respiratory Rate 18 /min Heart Rate 85 /min Blood Pressure Systolic 132 mm[Hg] Blood Pressure Diastolic 64 mm[Hg] 04/20/2024 09:48 AM Temperature 99 [degF] Oxygen Saturation 96 % Respiratory Rate 18 /min Heart Rate 93 /min Blood Pressure Systolic 113 mm[Hg] Blood Pressure Diastolic 80 mm[Hg] 04/20/2024 09:47 AM Body Weight 121.4 [lb_av] Body Mass Index 20.2 kg/m2 04/27/2024 09:52 AM Temperature 97.7 [degF] Oxygen Saturation 100 % Respiratory Rate 16 /min Heart Rate 85 /min Blood Pressure Systolic 159 mm[Hg] Blood Pressure Diastolic 70 mm[Hg] 04/27/2024 09:03 AM Body Weight 123.6 [lb_av] Body Mass Index 20.57 kg/m2 04/30/2024 10:49 AM Body Weight 122.8 [lb_av] Body Mass Index 20.43 kg/m2 05/02/2024 01:20 PM Body Weight 123.8 [lb_av] Body Mass Index 20.6 kg/m2 05/03/2024 02:13 PM Body Weight 123.2 [lb_av] Body Mass Index 20.5 kg/m2 05/04/2024 01:24 PM Body Weight 123.4 [lb_av] Body Mass Index 20.53 kg/m2 05/04/2024 11:19 AM Temperature 98.6 [degF] Oxygen Saturation 99 % Respiratory Rate 16 /min Heart Rate 83 /min Blood Pressure Systolic 122 mm[Hg] Blood Pressure Diastolic 68 mm[Hg] 05/05/2024 12:09 PM Body Weight 123.5 [lb_av] Body Mass Index 20.55 kg/m2 05/11/2024 08:13 AM Temperature 97.2 [degF] Oxygen Saturation 100 % Respiratory Rate 16 /min Heart Rate 83 /min Blood Pressure Systolic 108 mm[Hg] Blood Pressure Diastolic 66 mm[Hg] 05/18/2024 10:40 AM Temperature 98.6 [degF] Oxygen Saturation 96 % Respiratory Rate 20 /min Heart Rate 97 /min Blood Pressure Systolic 139 mm[Hg] Blood Pressure Diastolic 69 mm[Hg] 05/25/2024 10:06 AM Temperature 98.3 [degF] Oxygen Saturation 95 % Respiratory Rate 17 /min Heart Rate 66 /min Blood Pressure Systolic 132 mm[Hg] Blood Pressure Diastolic 65 mm[Hg] 05/31/2024 05:18 PM Body Weight 124.8 [lb_av] Body Mass Index 20.77 kg/m2 06/01/2024 12:49 PM Temperature 98.2 [degF] Oxygen Saturation 99 % Respiratory Rate 16 /min Heart Rate 70 /min Blood Pressure Systolic 129 mm[Hg] Blood Pressure Diastolic 63 mm[Hg] 06/08/2024 09:17 AM Temperature 98.5 [degF] Oxygen Saturation 97 % Respiratory Rate 18 /min Heart Rate 90 /min Blood Pressure Systolic 142 mm[Hg] Blood Pressure Diastolic 80 mm[Hg] 06/15/2024 11:14 AM Temperature 96.9 [degF] Oxygen Saturation 98 % Respiratory Rate 16 /min Heart Rate 67 /min Blood Pressure Systolic 133 mm[Hg] Blood Pressure Diastolic 65 mm[Hg] 06/22/2024 10:56 AM Temperature 98 [degF] Oxygen Saturation 94 % Respiratory Rate 16 /min Heart Rate 80 /min Blood Pressure Systolic 122 mm[Hg] Blood Pressure Diastolic 79 mm[Hg] 06/29/2024 09:25 AM Temperature 97.5 [degF] Oxygen Saturation 100 % Respiratory Rate 16 /min Heart Rate 91 /min Blood Pressure Systolic 152 mm[Hg] Blood Pressure Diastolic 84 mm[Hg] 06/30/2024 08:36 AM Body Weight 124.6 [lb_av] Body Mass Index 20.73 kg/m2 07/02/2024 03:12 PM Body Weight 124.1 [lb_av] Body Mass Index 20.65 kg/m2 07/03/2024 08:33 AM Body Weight 125.6 [lb_av] Body Mass Index 20.9 kg/m2 07/04/2024 10:54 AM Body Weight 125.6 [lb_av] Body Mass Index 20.9 kg/m2 Social History No smoking Hx information available Encounters Type CPT Code Date Location Provider Indication s encounter report 07/16/2023 02:42 PM [facility] Advance Directives Directive Description Verification Date Supporting Document(s) Other Directive
[2024-08-24] MEDS: acetaminophen 500 mg Tablet 1000 MG PO (12:10)
[2024-08-24 12:18] LABS: Bilirubin Urine Negative (Negative); Blood Urine 3+ (Negative); Glucose Urine UA Negative (Normal); Ketones Urine 1+ (Negative); Leukocyte Esterase Urine 3+ (Negative); Nitrate Urine Negative (Negative); Protein Urine 2+ (Negative); Specific Gravity, Urine 1.011 (1.005-1.030); Urine Appearance Cloudy (CLEAR); Urine Color Yellow (Yellow); pH Urine 6.5 (5-7)
[2024-08-24 12:23] LABS: Bacteria Urine None Seen /hpf; Hyaline Casts Urine 4.52 /lpf; RBC Urine >100 /hpf (0-2); Squamous Epithelial Cell Urine 0-5 /hpf (0-5); WBC Urine >100 /hpf (0-5)
[2024-08-24 12:28] LABS: Procalcitonin 0.73 ng/mL (0-0.5)
[2024-08-24 12:29] LABS: Lactic Sepsis W/Reflex 1.2 mmol/L (0.5-2.2)
--- NOTE | 2024-08-24 12:40 | PC.PHAR ---
Pt is from [facility]
[2024-08-24 12:42] LABS: Alanine Aminotransferase 12 U/L (0-33); Albumin Level 3.9 g/dL (3.5-5.2); Alkaline Phosphatase 107 U/L (35-105); Anion Gap 22.2 (5-19); Aspartate Amino Transferase 16 U/L (0-32); Blood Urea Nitrogen 12 mg/dL (6-20); C Reactive Protein 209.5 mg/L (0.0-4.9); Calcium 9.3 mg/dL (8.5-10.5); Carbon Dioxide 22 mmol/L (22-29); Chloride 96 mmol/L (98-107); Creatinine Clr Calc Pharmacy 80.1802; Globulin 3.6 g/dL (1.3-4.6); Glomerular Filtration Rate 85.6 mL/min (90-130); Glucose 149 mg/dL (65-115); Osmolality Calculated 287 mOsm/kg (285-295); Potassium 3.2 mmol/L (3.5-5.1); Sodium 137 mmol/L (136-145); Total Bilirubin 0.7 mg/dL (0.15-1.2); Total Protein 7.5 g/dL (6.6-8.7)
[2024-08-24 12:50] VITALS: PULSE 100; O2SAT 96
[2024-08-24 12:57] LABS: UA Slide Review UA Slide Review Perf
[2024-08-24 12:59] LABS: Add Urine Culture? Yes; Oval Fat Bodies Urine 1+ /hpf
--- NOTE | 2024-08-24 13:10 | CT_ITS ---
WS: [id number] CT ABDOMEN AND PELVIS WITH CONTRAST HISTORY: hematuria TECHNIQUE: Imaging performed of the abdomen and pelvis with IV contrast. Single phase imaging of the abdomen. Coronal and sagittal reformats are submitted. All CT scans at [facility] use at least one of these dose optimization techniques: automated exposure control; mA and/or kV adjustment per patient size (includes targeted exams where dose is matched to clinical indication); or iterative reconstruction. IV CONTRAST: Omnipaque 350; 100 mL IV. Oral contrast: No DLP: 404.92 mGy.cm COMPARISON: None available. Lower thorax: Lung bases are clear. Heart is normal size. Small hiatal hernia. Liver/biliary system: Normal size with no intrahepatic dilatation. Gallbladder: Normal. No gallstones or wall thickening. No pericholecystic fluid. Pancreas: Normal size pancreas and pancreatic duct. No adjacent inflammation. Spleen: Normal size spleen. No mass or infarct. Adrenal glands: Normal. Right kidney: Normal. Left kidney: Abnormal enhancement of portions LEFT kidney. There is decreased enhancement within the superior pole and extending along the medial kidney. Wedge-shaped area of decreased enhancement in the lower pole cortex. There is no obstruction of the kidney. Aorta: Normal. Lymphadenopathy: None. Free fluid: None. GI tract: Nondistended stomach. No small bowel obstruction. Normal-appearing appendix. There is marked fluid distention of the colon greatest through the transverse colon. No obstructive pattern identified. There is no change in caliber of colon. Marked fecal retention at the rectum. 7.5 cm transverse diameter of the rectum. Abdominal wall: Fat containing umbilical hernia. Pelvis: Atrophic uterus. No free fluid or adenopathy. Small amount of air in the urinary bladder. Bones: RIGHT curvature lumbar spine and increased lordosis. CT/CT abdomen pelvis w con* [id number] IMPRESSION: 1. Decreased, multifocal enhancement LEFT kidney. Most consistent with acute p yelonephritis. No abscess is evident. Differential would include ischemic gaona es. 2. No renal obstruction. 3. Normal appendix. 4. Increased air within the colon. 5. Marked fecal retention at the rectum.
[2024-08-24] MEDS: sodium chloride 0.9% 1,000 ML 999 ML IV ×2 (13:32→13:33)
[2024-08-24] MEDS: cefTRIAXone 1,000 mg SDV 1000 MG IVP (13:32)
[2024-08-24] MEDS: iohexol 350 mg/mL 500 mL Btl (per mL) IV (13:41)
[2024-08-24 14:05] VITALS: TEMP 37.1
--- NOTE | 2024-08-24 16:08 | P.HP_ITS ---
Providers/Chief Complaint 2 Admitting Physician: Kalina Henley MD Primary Care Provider: Dariel Gaviria MD Chief Complaint: AMS History of Present Illness Elizabeth Garcia is a 59 year old female with PMH MS, urinary incontinence, breast cancer who presents to the hospital with c/o fever, chills and being slightly confused at the [place]. she is currently able to hold a conversation and states that she had been unwell for past 2-3 days. Today she had a high fever so EMS was called. In the ER she was found to have a + UA and Ct abdomen pelvis revealed pyelonephritis. Review of Systems 2 General: Reports: 10 or more systems reviewed and unremarkable except in HPI and below Const: Denies: fever(s), chills or body aches Eyes: Denies: change in vision, blurry vision or photophobia ENMT: Reports: hoarseness; Denies: throat pain, enlarged tonsils, odynophagia or nasal congestion Card: Denies: chest pain, palpitations, irregular heart rhythm, edema, swelling of feet/ankles, lightheadedness, pre-syncope, dyspnea on exertion or orthopnea Resp: Denies: dyspnea, productive cough, non-productive cough, wheezing, stridor, pain on inspiration, change in phlegm color, hemoptysis or chest congestion GI: Denies: abdominal pain, nausea, vomiting, hematemesis, coffee ground emesis, dysphagia, heartburn, diarrhea, constipation, GI cramping, change in stool character, hematochezia or melena : Denies: flank pain, difficulty voiding, dysuria, urinary frequency, urinary urgency, urinary hesitancy or hematuria Musc: Denies: neck pain, back pain, extremity pain, joint swelling, joint warmth or deformity Neuro: Denies: headache(s), numbness in extremities, weakness in extremities, sensory changes, difficulty walking, frequent falls, dizziness, vertigo, behavioral changes, Slurred speech present or seizure-like activity Psych: Denies: anxiety, depression, suicidal ideation or homicidal ideation Endo: Denies: polyuria, polydipsia, tired all the time, cold intolerance or hot flashes Gerald/Lymph: Denies: easy bruising or easy bleeding Medications/Allergies Home Medications ?Medication ?Instructions ?Recorded ?Confirmed ?Last Taken ?Type linaclotide 72 mcg capsule 72 mcg PO DAILY PRN Constip ation 05/17/24 08/24/24 Unknown History (Linzess) trazodone 50 mg tablet 25 mg PO BEDTIME 05/17/2408/23/24 History acetaminophen 325 mg tablet 650 mg PO Q6H PRN pain/inc reased 08/24/24 08/24/24 Unknown History temp oaxza-j-jtayptjjktmol 400 unit See Rx Instructions .Ro hany .COMPLEX 08/24/24 08/24/24 08/24/24 History tablet (Beano) bisacodyl 10 mg rectal suppository 10 mg SD DAILY PRN Constipation 08/24/24 08/24/24 Unknown History (Dulcolax (bisacodyl)) bisacodyl 5 mg tablet,delayed 10 mg PO DAILY PRN Const ipation 08/24/24 08/24/24 Unknown History release (Dulcolax (bisacodyl)) dimethyl fumarate 240 mg 240 mg PO BID 08/24/2408/2408/24/24 History capsule,delayed release (Tecfidera) duloxetine 60 mg capsule,delayed 60 mg PO DAILY 08/24/24 08/24/24 History release magnesium hydroxide 400 mg/5 mL 30 ml PO DAILY PRN Con stipation 08/24/24 08/24/24 Unknown History oral suspension (Milk of Magnesia) simethicone 125 mg chewable tablet 250 mg PO QID PRN G astric Reflux 08/24/24 08/24/24 Unknown History (Gas Relief Extra Strength) sodium phosphates 19 gram-7 118 ml SD DAILY PRN Consti pation 08/24/24 08/24/24 Unknown History gram/118 mL enema (Fleet Enema) Allergies Allergy/AdvReac Type Severity Reaction Status Date / Time No Known Allergies Allergy Verified 05/17/24 11:39 PFSH Acute 2 PFSH: Medical History Depression Multiple sclerosis Family History Brother Cancer Father Congestive heart failure (CHF) Social History Smoking and tobacco/nicotine status: never used tobacco/nicotine Alcohol intake: never Vitals/I&O/Wt Last Vital Signs Temp 98.7 F 08/24/24 14:05 Pulse 100 08/24/24 12:50 Resp 20 H 08/24/24 11:35 BP 138/53 08/24/24 11:35 Pulse Ox 96 08/24/24 12:50 O2 Del Method Room Air 08/24/24 11:35 08/24/24 08/24/24 08/24/24 06:59 14:59 22:59 Intake Total 1999 Balance 1999 Weight last 48 hrs Weight 61.235 kg Physical Exam 2 Narrative: General: No acute distress, AO x3 HEENT: PERRLA, pupils bilaterally equal and reactive, pallors not present Chest: Normal vesicular breath sounds, no added sounds, equal good air entry bilaterally CVS: S1-S2 regular, no murmurs, no tachycardia, no gallops, no rubs Abdomen: Soft, nontender, no organomegaly, bowel sounds present Neuro: No focal deficits, no facial deformity, AO x3, power 5/5 in all limbs Data 08/25/24 05:37 08/25/24 05:37 Micro: Microbiology 08/24/24 12:13 Blood Culture - Preliminary Blood SPECIMEN COLLECTED 08/24/24 12:10 Blood Culture - Preliminary Blood SPECIMEN COLLECTED Other data: Radiology Impressions Chest X-Ray 08/24/24 11:39 IMPRESSION: 1. No acute cardiopulmonary finding. Abdomen/Pelvis CT 08/24/24 13:10 IMPRESSION: 1. Decreased, multifocal enhancement LEFT kidney. Most consistent with acute pyelonephritis. No abscess is evident. Differential would include ischemic changes. 2. No renal obstruction. 3. Normal appendix. 4. Increased air within the colon. 5. Marked fecal retention at the rectum. Laboratory Results WBC 14.89 10^3/uL (3.29-11.43) H 08/24/24 11:15 RBC 4.43 10^6/uL (3.85-5.65) 08/24/24 11:15 Hgb 13.20 g/dL (11.27-16.99) 08/24/24 11:15 Hct 39.3 % (36-47) 08/24/24 11:15 MCV 88.7 fl (85-98) 08/24/24 11:15 MCH 29.8 pg (27-33) 08/24/24 11:15 MCHC 33.6 g/dL (30-55) 08/24/24 11:15 RDW 12.6 % (12.1-15.1) 08/24/24 11:15 Plt Count 265 10^3/cmm (157-399) 08/24/24 11:15 MPV 10.6 fL (7.4-10.4) H 08/24/24 11:15 Neut % (Auto) 86.8 % 08/24/24 11:15 Lymph % (Auto) 4.4 % 08/24/24 11:15 [place] % (Auto) 8.1 % 08/24/24 11:15 Eos % (Auto) 0.0 % 08/24/24 11:15 Baso % (Auto) 0.2 % 08/24/24 11:15 Neut # (Auto) 12.94 10^3/uL (1.8-7.7) H 08/24/24 11:15 Lymph # (Auto) 0.7 10^3/uL (0.8-4.8) L 08/24/24 11:15 [place] # (Auto) 1.2 10^3/uL (0.2-0.9) H 08/24/24 11:15 Eos # (Auto) 0.0 10^3/uL (0.0-0.8) 08/24/24 11:15 Baso # (Auto) 0.0 10^3/uL (0.0-0.1) 08/24/24 11:15 Nucleated RBC % (auto) 0 % 08/24/24 11:15 Nucleated RBCs # 0.0 /100WBC 08/24/24 11:15 Sodium 137 mmol/L (136-145) 08/24/24 11:15 Potassium 3.2 mmol/L (3.5-5.1) L 08/24/24 11:15 Chloride 96 mmol/L (98-107) L 08/24/24 11:15 Carbon Dioxide 22 mmol/L (22-29) 08/24/24 11:15 Anion Gap 22.2 (5-19) H 08/24/24 11:15 BUN 12 mg/dL (6-20) 08/24/24 11:15 Creatinine 0.7 mg/dL (0.5-0.9) 08/24/24 11:15 GFR Calculation 85.6 mL/min (90-130) L 08/24/24 11:15 Glucose 149 mg/dL (65-115) H 08/24/24 11:15 Calculated Osmolality 287 mOsm/kg (285-295) 08/24/24 11:15 Lactic Acid 1.2 mmol/L (0.5-2.2) 08/24/24 11:15 Calcium 9.3 mg/dL (8.5-10.5) 08/24/24 11:15 Total Bilirubin 0.7 mg/dL (0.15-1.2) 08/24/24 11:15 AST 16 U/L (0-32) 08/24/24 11:15 ALT 12 U/L (0-33) 08/24/24 11:15 Alkaline Phosphatase 107 U/L (35-105) H 08/24/24 11:15 C-Reactive Protein 209.5 mg/L (0.0-4.9) H 08/24/24 11:15 Total Protein 7.5 g/dL (6.6-8.7) 08/24/24 11:15 Albumin 3.9 g/dL (3.5-5.2) 08/24/24 11:15 Globulin 3.6 g/dL (1.3-4.6) 08/24/24 11:15 Procalcitonin 0.73 ng/mL (0-0.5) H 08/24/24 11:15 Urine Color Yellow (Yellow) 08/24/24 12:03 Urine Appearance Cloudy (CLEAR) A 08/24/24 12:03 Urine pH 6.5 (5-7) 08/24/24 12:03 Ur Specific [place] 1.011 (1.005-1.030) 08/24/24 12:03 Urine Protein 2+ (Negative) A 08/24/24 12:03 Urine Glucose (UA) Negative (Normal) 08/24/24 12:03 Urine Ketones 1+ (Negative) H 08/24/24 12:03 Urine Blood 3+ (Negative) A 08/24/24 12:03 Urine Nitrate Negative (Negative) 08/24/24 12:03 Urine Bilirubin Negative (Negative) 08/24/24 12:03 Urine Urobilinogen 2.0 mg/dL (Negative) H 08/24/24 12:03 Ur Leukocyte Esterase 3+ (Negative) A 08/24/24 12:03 Urine RBC >100 /hpf (0-2) H 08/24/24 12:03 Urine WBC >100 /hpf (0-5) H 08/24/24 12:03 Ur Squamous Epith Cells 0-5 /hpf (0-5) 08/24/24 12:03 Amorphous Sediment Not Reportable 08/24/24 12:03 Urine Bacteria None seen /hpf (NONE) 08/24/24 12:03 Hyaline Casts 4.52 /lpf 08/24/24 12:03 Ur Oval Fat Bodies 1+ /hpf 08/24/24 12:03 A&P Assessment and plan (1) Pyelonephritis: Patient admitted to the hospital with fever leukocytosis and CT evidence of acute pyelonephritis of the left kidney. Start empiric antibiotic coverage with cefepime 2 g IV every 12 hours. Urine and blood cultures have been taken in the emergency room and are currently awaited. IV fluid normal saline at 75 cc an hour. No obstructive uropathy noted on CT. Check bladder scan to assess for any urinary retention. Plan DVT prophylaxis: Lovenox 40 mg subcutaneously every 24 hours Full code PDMP PDMP Reviewed: Not Reviewed Attestations 2 Medical Necessity Statement*: Greater than 2 midnight admission is anticipated Coding Level of Care Code Acute Code for Chg Fwd High MDM includes number and complexity of problems actively addressed during encounter, amount and/or complexity of data reviewed/ordered and described risk of complication, morbidity or mortality of management as documented Diagnoses Pyelonephritis N12
--- NOTE | 2024-08-24 16:23 | ECG_ITS ---
[facility] Date: 2024-08-24 Pat Name: Elizabeth Garcia Department: Room: 262 Gender: Female Studio Director: : 1965 Requested By: Kalina Henley Order Number: [id number] Reading MD: Measurements Intervals [place] Rate: 93 P: 54 FL: 129 QRS: 18 QRSD: 82 T: 54 QT: 342 QTc: 426 Interpretive Statements SINUS RHYTHM [email or web address]
[2024-08-24 16:38] VITALS: BP 138/75; PULSE 97; O2SAT 96
[2024-08-24 16:58] VITALS: BP 142/57; PULSE 96; RESP 15; TEMP 36.7; O2SAT 97
[2024-08-24] MEDS: enoxaparin 40 mg/0.4 mL Syringe SUBCUT (17:16)
[2024-08-24] MEDS: potassium chloride ER 20 mEq Tablet 40 MEQ PO (17:17)
[2024-08-24] MEDS: cefepime 2,000 mg SDV 2000 MG IVP (17:17)
[2024-08-24 20:00] VITALS: BP 139/72; PULSE 110; RESP 18; TEMP 37.1; O2SAT 99
[2024-08-24] MEDS: sodium chloride 0.9% 1,000 ML 75 ML IV (21:15)
[2024-08-25] VITALS: BP 127/77; PULSE 110; RESP 17; TEMP 36.9; O2SAT 93
[2024-08-25 04:00] VITALS: BP 161/75; PULSE 107; RESP 16; TEMP 37.3; O2SAT 95
[2024-08-25] MEDS: cefepime 2,000 mg SDV 2000 MG IVP ×2 (04:08→15:44)
[2024-08-25 06:10] LABS: Basophils % 0.4 %; Eosinophils % 0.1 %; Hematocrit 35.7 % (36-47); Lymphocytes # 0.5 10^3/uL (0.8-4.8); Lymphocytes % 5.9 %; Mean Corpuscular HGB Conc 32.8 g/dL (30-55); Mean Corpuscular Hemoglobin 29.5 pg (27-33); Mean Corpuscular Volume 90.2 fl (85-98); Mean Platelet Volume 11.1 fL (7.4-10.4); Monocytes % 12.6 %; Neutrophils % 80.6 %; Nucleated Red Blood Cells % 0 %; Platelet Count 194 10^3/cmm (157-399); Red Blood Count 3.96 10^6/uL (3.85-5.65); Red Cell Distribution Width 12.6 % (12.1-15.1); White Blood Count 8.18 10^3/uL (3.29-11.43)
[2024-08-25 06:33] LABS: Alanine Aminotransferase 10 U/L (0-33); Alkaline Phosphatase 87 U/L (35-105); Anion Gap 17.3 (5-19); Aspartate Amino Transferase 13 U/L (0-32); Blood Urea Nitrogen 9 mg/dL (6-20); Calcium 8.5 mg/dL (8.5-10.5); Carbon Dioxide 21 mmol/L (22-29); Chloride 104 mmol/L (98-107); Creatinine Clr Calc Pharmacy 91.8083; Globulin 3.4 g/dL (1.3-4.6); Glomerular Filtration Rate 102.3 mL/min (90-130); Glucose 124 mg/dL (65-115); Osmolality Calculated 288 mOsm/kg (285-295); Potassium 3.3 mmol/L (3.5-5.1); Sodium 139 mmol/L (136-145); Total Bilirubin 0.4 mg/dL (0.15-1.2); Total Protein 6.4 g/dL (6.6-8.7)
[2024-08-25 07:00] VITALS: BP 124/70; PULSE 100; RESP 16; TEMP 37.4; O2SAT 95
[2024-08-25] MEDS: pantoprazole DR 40 mg Tablet PO (08:48)
[2024-08-25] MEDS: sodium chloride 0.9% 1,000 ML 75 ML IV ×2 (11:54→17:44)
[2024-08-25 12:00] VITALS: BP 144/73; PULSE 112; RESP 15; TEMP 38.7; O2SAT 100
--- NOTE | 2024-08-25 15:40 | P.PN_ITS ---
Subjective 2 Subjective: Tmax 101.7 this afternoon. No new complaints. Leukocytosis trending down to 8.9 today. Medications: Reviewed: Yes Vitals/I&O/Wt Last Vital Signs Weight last 48 hrs Weight 58.513 kg Weight 58.513 kg Weight 58.117 kg Physical Exam 2 Narrative: General: No acute distress, AO x3 HEENT: PERRLA, pupils bilaterally equal and reactive, pallors not present Chest: Normal vesicular breath sounds, no added sounds, equal good air entry bilaterally CVS: S1-S2 regular, no murmurs, no tachycardia, no gallops, no rubs Abdomen: Soft, nontender, no organomegaly, bowel sounds present Neuro: No focal deficits, no facial deformity, AO x3, power 5/5 in all limbs Data 08/25/24 05:37 08/25/24 05:37 Micro: Microbiology 08/24/24 12:03 Urine Culture - Final Urine,Clean Catch 08/24/24 12:13 Blood Culture - Preliminary Blood NEGATIVE TO DATE 08/24/24 12:10 Blood Culture - Preliminary Blood NEGATIVE TO DATE A&P Assessment and plan (1) Pyelonephritis: Patient admitted to the hospital with fever leukocytosis and CT evidence of acute pyelonephritis of the left kidney. Start empiric antibiotic coverage with cefepime 2 g IV every 12 hours. Urine and blood cultures have been taken in the emergency room and are currently awaited. IV fluid normal saline at 75 cc an hour. No obstructive uropathy noted on CT. Check bladder scan to assess for any urinary retention. Plan DVT prophylaxis: Lovenox 40 mg subcutaneously every 24 hours Full code August 25, 2024 Continue IV cefepime 2 g every 12 hours Awaiting urine and blood cultures, thus far both are negative. Continue IV fluids. Resume home dose of duloxetine and trazodone. Disposition planning pending results of urine and blood cultures PDMP PDMP Reviewed: Not Reviewed Attestations 2 Medical Necessity Statement*: Awaiting urine and blood cultures, awaiting afebrile 24-hour Coding Level of Care Code Acute Code for [facility] Fwd Diagnoses Pyelonephritis N12
[2024-08-25] MEDS: enoxaparin 40 mg/0.4 mL Syringe SUBCUT (15:44)
[2024-08-25 15:50] VITALS: BP 138/77; PULSE 100; RESP 15; TEMP 37.7; O2SAT 93
[2024-08-25] MEDS: duloxetine 60 mg Capsule PO (17:42)
[2024-08-25 20:00] VITALS: BP 135/69; PULSE 92; RESP 16; TEMP 36.8; O2SAT 94
[2024-08-25] MEDS: acetaminophen 325 mg Tablet 650 MG PO (20:05)
[2024-08-25] MEDS: trazodone 50 mg Tablet 25 MG PO (20:06)
[2024-08-26] VITALS: BP 138/56; PULSE 83; RESP 16; TEMP 36.6; O2SAT 90
[2024-08-26 04:00] VITALS: BP 118/71; PULSE 76; RESP 17; TEMP 36.8; O2SAT 95
[2024-08-26] MEDS: cefepime 2,000 mg SDV 2000 MG IVP (04:43)
[2024-08-26 07:55] VITALS: BP 144/77; PULSE 91; RESP 17; TEMP 37.1; O2SAT 94
[2024-08-26] MEDS: duloxetine 60 mg Capsule PO (08:21)
[2024-08-26] MEDS: pantoprazole DR 40 mg Tablet PO (08:22)
--- NOTE | 2024-08-26 11:37 | PC.NURSE ---
Medications finalized awaiting for snf to ok to call report and snf can come get the patient. Patient has dementia and is not a candidate for discharge waiting room.
[2024-08-26 12:20] VITALS: BP 147/78; PULSE 93; RESP 17; TEMP 37.1; O2SAT 97
--- NOTE | 2024-08-26 12:48 | PC.NURSE ---
Called to give report to [facility] and left a message.
--- NOTE | 2024-08-26 12:52 | PC.SOCIAL ---
IMM Update pg 2 of IMM Updated and reviewed w/ patient. Copy provided and copy dated, initialed and placed in chart.
--- NOTE | 2024-08-26 14:21 | PC.NURSE ---
Called report to Caroline at [facility] and she stated she would let her people know to come get her.
[2024-08-26 14:23] VITALS: BP 147/78; PULSE 93; RESP 17; TEMP 37.1; O2SAT 97
--- NOTE | 2024-08-26 15:36 | PM.DCS ---
Discharge Providers Date of Admission: 08/24/24 15:44 Date of Discharge: August 26, 2024 Attending Provider at Admission: Kalina Henley MD Attending Provider at Discharge: Kalina Henley MD Primary Care Provider: Dariel Gaviria MD Diagnoses at Discharge Discharge Diagnosis (1) Pyelonephritis: Status: Acute Reason for Visit Reason for Visit: [facility] Hospital Course Hospital Course Elizabeth Garcia is a 59 year old female with PMH MS, urinary incontinence, breast cancer who presents to the hospital with c/o fever, chills and being slightly confused at the [place]. Since arrival at the hospital she had been alert awake and oriented. Tmax at the hospital was at 101.7 Fahrenheit. She had leukocytosis upon admission with WBC count at 14.89. CT of the abdomen and pelvis showed decreased multifocal enhancement of the left kidney which was consistent with acute pyelonephritis. No abscess was evident. Urine analysis showed 3+ leukocyte [place], greater than 100 RBC, greater than 100 WBC. Blood cultures remain negative to date. Urine culture showed less than 5000 colonies of mixed superficial malika. Patient received treatment with IV cefepime during her admission. WBC count trended down to 8.9. Patient has been afebrile last 24 hours. With culture data remaining negative, she was transitioned to empiric treatment with ciprofloxacin 500 mg p.o. twice daily to be continued for the next 7 days to take total 10 days of treatment for pyelonephritis. To return to ER should patient develop persistent fevers or clinically worsens. She remained alert awake during the course of her admission. Mild episode of sundowning was noted on August 24, 2024, however prior snf remote this is patient's baseline Physical Exam Narrative: General: No acute distress, AO x3 HEENT: PERRLA, pupils bilaterally equal and reactive, pallors not present Chest: Normal vesicular breath sounds, no added sounds, equal good air entry bilaterally CVS: S1-S2 regular, no murmurs, no tachycardia, no gallops, no rubs Abdomen: Soft, nontender, no organomegaly, bowel sounds present Neuro: No focal deficits, no facial deformity, AO x3, power 5/5 in all limbs Discharge Data Studies Completed and Pending Completed Studies During Hospitalization Category Date Time Status CT abdomen pelvis w con* [id number] Stat Cat Scan 08/24/24 13:10 Completed XR chest 1V portable [id number] Stat Exams 08/24/24 11:39 Completed Pending at discharge Category Date Time Status Blood Culture Stat Lab 08/24/24 12:13 Results Radiology Impressions Chest X-Ray 08/24/24 11:39 IMPRESSION: 1. No acute cardiopulmonary finding. Abdomen/Pelvis CT 08/24/24 13:10 IMPRESSION: 1. Decreased, multifocal enhancement LEFT kidney. Most consistent with acute pyelonephritis. No abscess is evident. Differential would include ischemic changes. 2. No renal obstruction. 3. Normal appendix. 4. Increased air within the colon. 5. Marked fecal retention at the rectum. Laboratory Results WBC 8.18 10^3/uL (3.29-11.43) 08/25/24 05:37 RBC 3.96 10^6/uL (3.85-5.65) 08/25/24 05:37 Hgb 11.70 g/dL (11.27-16.99) 08/25/24 05:37 Hct 35.7 % (36-47) L 08/25/24 05:37 MCV 90.2 fl (85-98) 08/25/24 05:37 MCH 29.5 pg (27-33) 08/25/24 05:37 MCHC 32.8 g/dL (30-55) 08/25/24 05:37 RDW 12.6 % (12.1-15.1) 08/25/24 05:37 Plt Count 194 10^3/cmm (157-399) 08/25/24 05:37 MPV 11.1 fL (7.4-10.4) H 08/25/24 05:37 Neut % (Auto) 80.6 % 08/25/24 05:37 Lymph % (Auto) 5.9 % 08/25/24 05:37 [place] % (Auto) 12.6 % 08/25/24 05:37 Eos % (Auto) 0.1 % 08/25/24 05:37 Baso % (Auto) 0.4 % 08/25/24 05:37 Neut # (Auto) 6.60 10^3/uL (1.8-7.7) 08/25/24 05:37 Lymph # (Auto) 0.5 10^3/uL (0.8-4.8) L 08/25/24 05:37 [place] # (Auto) 1.0 10^3/uL (0.2-0.9) H 08/25/24 05:37 Eos # (Auto) 0.0 10^3/uL (0.0-0.8) 08/25/24 05:37 Baso # (Auto) 0.0 10^3/uL (0.0-0.1) 08/25/24 05:37 Nucleated RBC % (auto) 0 % 08/25/24 05:37 Nucleated RBCs # 0.0 /100WBC 08/25/24 05:37 Sodium 139 mmol/L (136-145) 08/25/24 05:37 Potassium 3.3 mmol/L (3.5-5.1) L 08/25/24 05:37 Chloride 104 mmol/L (98-107) 08/25/24 05:37 Carbon Dioxide 21 mmol/L (22-29) L 08/25/24 05:37 Anion Gap 17.3 (5-19) 08/25/24 05:37 BUN 9 mg/dL (6-20) 08/25/24 05:37 Creatinine 0.6 mg/dL (0.5-0.9) 08/25/24 05:37 GFR Calculation 102.3 mL/min (90-130) 08/25/24 05:37 Glucose 124 mg/dL (65-115) H 08/25/24 05:37 Calculated Osmolality 288 mOsm/kg (285-295) 08/25/24 05:37 Lactic Acid 1.2 mmol/L (0.5-2.2) 08/24/24 11:15 Calcium 8.5 mg/dL (8.5-10.5) 08/25/24 05:37 Total Bilirubin 0.4 mg/dL (0.15-1.2) 08/25/24 05:37 AST 13 U/L (0-32) 08/25/24 05:37 ALT 10 U/L (0-33) 08/25/24 05:37 Alkaline Phosphatase 87 U/L (35-105) 08/25/24 05:37 C-Reactive Protein 209.5 mg/L (0.0-4.9) H 08/24/24 11:15 Total Protein 6.4 g/dL (6.6-8.7) L 08/25/24 05:37 Albumin 3.0 g/dL (3.5-5.2) L 08/25/24 05:37 Globulin 3.4 g/dL (1.3-4.6) 08/25/24 05:37 Procalcitonin 0.73 ng/mL (0-0.5) H 08/24/24 11:15 Urine Color Yellow (Yellow) 08/24/24 12:03 Urine Appearance Cloudy (CLEAR) A 08/24/24 12:03 Urine pH 6.5 (5-7) 08/24/24 12:03 Ur Specific [place] 1.011 (1.005-1.030) 08/24/24 12:03 Urine Protein 2+ (Negative) A 08/24/24 12:03 Urine Glucose (UA) Negative (Normal) 08/24/24 12:03 Urine Ketones 1+ (Negative) H 08/24/24 12:03 Urine Blood 3+ (Negative) A 08/24/24 12:03 Urine Nitrate Negative (Negative) 08/24/24 12:03 Urine Bilirubin Negative (Negative) 08/24/24 12:03 Urine Urobilinogen 2.0 mg/dL (Negative) H 08/24/24 12:03 Ur Leukocyte Esterase 3+ (Negative) A 08/24/24 12:03 Urine RBC >100 /hpf (0-2) H 08/24/24 12:03 Urine WBC >100 /hpf (0-5) H 08/24/24 12:03 Ur Squamous Epith Cells 0-5 /hpf (0-5) 08/24/24 12:03 Amorphous Sediment Not Reportable 08/24/24 12:03 Urine Bacteria None seen /hpf (NONE) 08/24/24 12:03 Hyaline Casts 4.52 /lpf 08/24/24 12:03 Ur Oval Fat Bodies 1+ /hpf 08/24/24 12:03 Vitals Last Vital Signs Temp 98.7 F 08/26/24 14:23 Pulse 93 08/26/24 14:23 Resp 17 08/26/24 14:23 BP 147/78 08/26/24 14:23 Pulse Ox 97 08/26/24 14:23 O2 Del Method Room Air 08/26/24 04:00 O2 Flow Rate 2 08/26/24 00:00 Discharge Plan Discharge Patient Disposition: Xfer SNF Condition: Stable Prescriptions: New ciprofloxacin HCl [Cipro] 500 mg tablet 500 mg PO Q12H 7 Days Qty: 14 0RF Continued trazodone 50 mg tablet 25 mg PO BEDTIME Linzess 72 mcg capsule 72 mcg PO DAILY PRN (Reason: Constipation) acetaminophen 325 mg Tablet 650 mg PO Q6H PRN (Reason: pain/increased temp) magnesium hydroxide [Milk of Magnesia] 400 mg/5 mL Suspension 30 ml PO DAILY PRN (Reason: Constipation) bisacodyl [Dulcolax (bisacodyl)] 10 mg Suppository 10 mg [place] DAILY PRN (Reason: Constipation) Fleet Enema 19-7 gram/118 mL Enema 118 ml [place] DAILY PRN (Reason: Constipation) simethicone [Gas Relief Extra Strength] 125 mg tablet,chewable 250 mg PO QID PRN (Reason: Gastric Reflux) bisacodyl [Dulcolax (bisacodyl)] 5 mg Tablet,Delayed Release (Dr/Ec) 10 mg PO DAILY PRN (Reason: Constipation) Rx Instructions: if no results from milk of magnesia. duloxetine 60 mg capsule,delayed release(DR/EC) 60 mg PO DAILY [place] 400 unit tablet See Rx Instructions .ROUTE .COMPLEX Rx Instructions: Take 2 tablets by mouth with meals at 7:30am, 12:00 noon, and 5:30pm. dimethyl fumarate [Tecfidera] 240 mg capsule,delayed release(DR/EC) 240 mg PO BID Discharge Orders: Discharge Order (Routine); Ordered 08/26/24 Ordered By: Kalina Henely Referrals: [facility] [Outside] Dariel Gaviria MD [Primary Care Provider, Family Practice] - 4-7 days Referral Note: hospital discharge follow up for pyelonephritis Discharge Diet: Usual diet Discharge Activity: Resume usual activity Patient Instructions: Ciprofloxacin (By mouth), Opioid Safety, Patient Portal & Chip Instructions Discharge Attestations Time Spent in Discharge Care*: greater than 30 min Quality Metrics Clinical Quality Measures [ No reported AMI, CVA or VTE this stay] Coding Level of Care Code Acute Code for [facility] Fwd Diagnoses Pyelonephritis N12
== END 2024-08-26 15:50 | disposition skilled nursing facility (03) | DRG 690 ==
LOC: ER 14:06 → MEDSURG 15:45
PROVIDERS: Admitting Provider Student in an Organized Health Care Education/Training Program; Emergency Provider Emergency Medicine; PCP Family Medicine; Visit Provider Student in an Organized Health Care Education/Training Program
DX: N10 Acute pyelonephritis (principal); G35 Multiple sclerosis; R32 Unspecified urinary incontinence; F03.A0 Unspecified dementia, mild, without behavioral disturbance, psychotic disturbance, mood disturbance, and anxiety; F32.A Depression, unspecified; Z85.3 Personal history of malignant neoplasm of breast; Z79.891 Long term (current) use of opiate analgesic
CPT/HCPCS: 36415; 51798; 71045; 74177; 80053; 81001; 83605; 84145; 85025; 86140; 87040; 87086; 93005; 94664; 96361; 96372; 96374; 97116; 97161; 97166; 97530; 97535; 99285; J0692; J0696; J1650; J7030; J9999

== ENCOUNTER 2024-11-24 10:25 | Oncology outpatient (recurring) (ONCR) | payer MEDICARE, MEDICAID, SELFPAY | END 2024-11-29 23:59 | disposition home or self-care (01) | PROVIDERS: PCP Family Medicine; Visit Provider Internal Medicine | DX: C50.919 Malignant neoplasm of unspecified site of unspecified female breast (principal); G35 Multiple sclerosis; Z92.3 Personal history of irradiation; Z79.899 Other long term (current) drug therapy | CPT/HCPCS: 99205 ==

== ENCOUNTER 2025-02-16 10:19 | Oncology outpatient (recurring) (ONCR) | payer MEDICARE, MEDICAID, SELFPAY ==
[2025-02-16 10:35] LABS: Hematocrit 42.7 % (36-47); Hemoglobin 13.90 g/dL (11.27-16.99); Mean Corpuscular HGB Conc 32.6 g/dL (30-55); Mean Corpuscular Hemoglobin 29.6 pg (27-33); Mean Corpuscular Volume 91.0 fl (85-98); Nucleated Red Blood Cells % 0 %; Platelet Count 318 10^3/cmm (157-399); Red Blood Count 4.69 10^6/uL (3.85-5.65); White Blood Count 8.02 10^3/uL (3.29-11.43)
[2025-02-16 10:58] LABS: Alanine Aminotransferase 6 U/L (0-33); Albumin Level 4.5 g/dL (3.5-5.2); Alkaline Phosphatase 104 U/L (35-105); Anion Gap 14.6 (5-19); Aspartate Amino Transferase 12 U/L (0-32); Blood Urea Nitrogen 20 mg/dL (6-20); Calcium 9.6 mg/dL (8.5-10.5); Carbon Dioxide 29 mmol/L (22-29); Chloride 102 mmol/L (98-107); Globulin 2.6 g/dL (1.3-4.6); Glucose 111 mg/dL (65-115); Osmolality Calculated 295 mOsm/kg (285-295); Potassium 4.6 mmol/L (3.5-5.1); Sodium 141 mmol/L (136-145); Total Protein 7.1 g/dL (6.6-8.7)
== END 2025-03-01 23:59 | disposition home or self-care (01) ==
PROVIDERS: PCP Family Medicine; Visit Provider Internal Medicine
DX: Z08 Encounter for follow-up examination after completed treatment for malignant neoplasm (principal); Z85.3 Personal history of malignant neoplasm of breast; Z92.3 Personal history of irradiation
CPT/HCPCS: 36415; 80053; 85025; 99213